=== PATIENT | female | born 1955 | race Caucasian/White ===

== ENCOUNTER 2017-10-28 12:16 | Outpatient (CLI) | payer OTHER | END 2017-10-28 12:17 | disposition home or self-care (01) | LOC: BICMRI 12:16 | PROVIDERS: ATTEND Orthopaedic Surgery | DX: M25.372 Other instability, left ankle (principal); S92.355G Nondisplaced fracture of fifth metatarsal bone, left foot, subsequent encounter for fracture with delayed healing ==

== ENCOUNTER 2018-03-04 10:53 | Outpatient (CLI) | payer OTHER | END 2018-03-04 10:54 | disposition home or self-care (01) | LOC: BICMAMMO 10:53 | PROVIDERS: ATTEND Family Medicine | DX: Z12.31 Encounter for screening mammogram for malignant neoplasm of breast (principal) | CPT/HCPCS: 77063; 77067 ==

== ENCOUNTER 2018-07-11 13:33 | Emergency (ER) | payer OTHER | END 2018-07-11 14:50 | disposition home or self-care (01) | LOC: SCSER 13:33 | DX: M62.838 Other muscle spasm (principal); R10.9 Unspecified abdominal pain; I10 Essential (primary) hypertension; Z79.899 Other long term (current) drug therapy | CPT/HCPCS: 99283 ==

== ENCOUNTER 2018-10-09 08:53 | Outpatient (CLI) | payer OTHER ==
--- NOTE | 2018-10-09 11:05 | MRI ---
MRI RIGHT KNEE WITHOUT CONTRAST: Date: 10/09/18 HISTORY: S83.249A tear medial meniscus knee. Worsening right knee pain. COMPARISON: None. FINDINGS: Medial Meniscus: Intact. Mild degenerative signal within the medial meniscal body without tear. Lateral Meniscus: There is maceration and chronic tearing of the anterior body and anterior horn of the lateral meniscu s with loss of hoop stress and lateral gutter extrusion. ACL, PCL, MCL, and LCL: Intact. Extensor Mechanism: Quadriceps tendon, patella, and patella tendon are intact. Cartilage: Patellofemoral Compartment: There is high grade near complete cartilage loss along the caudad 1/2 of the medial and lateral patellar facets. High grade chondral fissuring of the central trochlea. Medial Compartment: There is 50% thickness cartilage fissures on the posterior weightbearing surface of the medial femoral condyle. Small lateral osteophytes of the medial femoral condyle. Small subcor tical cyst formation of the submeniscal lateral tibial plateau. Lateral Compartment: There are high grade cartilage fissures of the central lateral weightbearing esparza rface of the lateral femoral condyle and lateral tibial plateau. Bones: Large lateral compartment osteophytes. Subcortical stress edema of the submeniscal lateral tibial elida teau at the lateral rim. There are full thickness cartilage fissures. There is subcortical edema of t he suprameniscal lateral femoral condyle. Muscles: There is ganglion pseudocyst formation at the tendinous origins of the medial and lateral gastrocnemi us. Remainder of the musculature is unremarkable. Moderate size joint effusion. Chronic synovitis with some tiny metaplasia. IMPRESSION: 1. 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 2. Mild degenerative signal within the body at the medial meniscus without tear. No significant loss of hoop stress with only Grade II/III chondromalacia. 3. Moderate size joint effusion with mild synovitis and tiny metaplasia. 4. Moderate degenerative disease of the proximal tibiofibular joint. POS: TPC
== END 2018-10-09 08:54 | disposition home or self-care (01) ==
LOC: BICMRI 08:53
PROVIDERS: ATTEND Orthopaedic Surgery
DX: S83.241A Other tear of medial meniscus, current injury, right knee, initial encounter (principal); M23.241 Derangement of anterior horn of lateral meniscus due to old tear or injury, right knee; M23.261 Derangement of other lateral meniscus due to old tear or injury, right knee; M23.331 Other meniscus derangements, other medial meniscus, right knee; M94.261 Chondromalacia, right knee; M25.461 Effusion, right knee; M17.11 Unilateral primary osteoarthritis, right knee; M65.9 Synovitis and tenosynovitis, unspecified

== ENCOUNTER 2019-03-05 10:07 | Outpatient (CLI) | payer OTHER ==
--- NOTE | 2019-03-05 10:56 | MMO ---
Bilateral MAMMO Bilat Screen [facility]STELLA. CLINICAL HISTORY: Patient is 63 years old and is seen for screening. The patient has no family history of breast cancer. The patient has no personal history of cancer. VIEWS: The views performed were: bilateral craniocaudal with tomosynthesis and bilateral mediolateral oblique with tomosynthesis. FILMS COMPARED: The present examination has been compared to prior imaging studies performed at [facility] on 07/08/2000, 07/09/2001, 07/09/2002, 07/09/2003, 07/13/2004, 07/13/2005, 07/15/2006, 08/04/2007, 08/05/2008, 08/08/2009, 08/09/2010, 08/25/2012, 09/07/2013, 11/22/2014, 12/23/2015, 01/03/2017 and 03/04/2018. MAMMOGRAM FINDINGS: There are scattered fibroglandular densities. Finding 1: There are stable intramammary lymph nodes seen in both breasts. Finding 2: There are stable benign appearing densities seen in both breasts. There are no suspicious masses, suspicious calcifications, or new areas of architectural distortion. IMPRESSION: THERE IS NO MAMMOGRAPHIC EVIDENCE OF MALIGNANCY. A ROUTINE FOLLOW-UP MAMMOGRAM IN 1 YEAR IS RECOMMENDED. THE RESULTS OF THIS EXAM WERE SENT TO THE PATIENT. ACR BI-RADS Category 2 - Benign finding MAMMOGRAPHY NOTE: 1. A negative mammogram report should not delay a biopsy if a dominant of clinically suspicious mass is present. 2. Approximately 10% to 15% of breast cancers are not detected by mammography. 3. Adenosis and dense breasts may obscure an underlying neoplasm.
--- NOTE | 2019-03-05 11:33 | BD ---
EXAM: DEXA bone density examination HISTORY: 63-year-old postmenopausal female for screening COMPARISON: None FINDINGS: L1--bone mineral density 0.771 g/sq cm; T score -2.0 L2--bone mineral density 0.826 g/sq cm; T score -1.8 L3--bone mineral density 0.785 g/sq cm; T score -2.7 L4--bone mineral density 0.687 g/sq cm; T score -3.4 Total L1-L4--bone mineral density 0.763 g/sq cm; T score -2.6 Right femoral neck--bone mineral density0.495; T score -3.2 Total proximal right femur--bone mineral density 0.496; T score -3.7 IMPRESSION: Osteoporosis.This patient has approximately an 8 times increased risk of fracture when co mpared with young patients with normal bone mineral density.
== END 2019-03-05 10:08 | disposition home or self-care (01) ==
LOC: BICMAMMO 10:07
PROVIDERS: ATTEND Family Medicine
DX: Z12.31 Encounter for screening mammogram for malignant neoplasm of breast (principal); Z13.820 Encounter for screening for osteoporosis; M81.0 Age-related osteoporosis without current pathological fracture
CPT/HCPCS: 77063; 77067; 77080

== ENCOUNTER 2019-07-08 07:50 | Observation (INO) | payer MEDICARE, OTHER ==
[2019-07-08 09:11] LABS: #Eosinphils 0.1 thou/uL (0.0-0.7); #Monocytes 0.7 thou/uL (0.11-0.59); #Neutrophils 13.9 thou/uL (1.40-6.50); %Basophils 0.2 % (0.0-1.0); %Eosinophils 0.5 % (0.0-10.0); %Lymphocytes 6.6 % (21.0-51.0); %Monocytes 4.1 % (0.0-10.0); %Neutrophils 88.6 % (42.0-75.0); Hemoglobin 11.9 g/dL (12.0-16.0); Mean Corpuscular HGB CONC 33.9 g/dL (32.0-36.0); Mean Corpuscular Hemoglobin 30.8 pg (27.0-31.0); Mean Corpuscular Volume 90.8 fL (78.0-98.0); Mean Platelet Volume 6.8 fL (7.4-10.4); Platelet Count 363 thou/uL (130-400); RBC Distribution Width 13.6 % (11.5-14.5); Red Blood Cell (RBC) Count 3.85 mill/uL (4.20-5.40); White Blood Cell (WBC) Count 15.7 thou/uL (4.8-10.8)
[2019-07-08 09:22] LABS: ALT (SGPT) 14 U/L (8-55); AST (SGOT) 12 U/L (5-34); Albumin 2.5 g/dL (3.4-4.8); Alkaline Phosphatase 77 U/L (40-150); Anion Gap 11 mmol/L (10-20); BUN (Urea Nitrogen) 29 mg/dL (9.8-20.1); Bilirubin, Total 0.3 mg/dL (0.2-1.2); Calc. Creatinine Clearance 0 mL/min (70-130); Calcium 8.2 mg/dL (7.8-10.44); Carbon Dioxide 24 mmol/L (23-31); Chloride 106 mmol/L (98-107); Estimated GFR-MDRD 42; Globulin 2.5 g/dL (2.4-3.5); Glucose 109 mg/dL (80-115); Potassium 4.1 mmol/L (3.5-5.1); Sodium 137 mmol/L (136-145)
[2019-07-08] MEDS ORDERED: hydrALAZINE 20 MG/ML VIAL ONE (10:14)
[2019-07-08] MEDS ORDERED: Furosemide 100 MG/10 ML VIAL ONE (10:14)
[2019-07-08] MEDS ORDERED: Albumin 25% 25 GM/100 ML BOT IVPB SCH (10:30)
[2019-07-08] MEDS ORDERED: Loperamide HCl 2 MG CAP PO PRN (13:43)
[2019-07-08] MEDS ORDERED: Metolazone 5 MG TAB PO SCH ×2 (13:45→17:15)
--- NOTE | 2019-07-08 16:32 | ULT ---
RENAL ULTRASOUND 07/08/19 PROVIDED CLINICAL HISTORY: Anasarca. FINDINGS: The right kidney measures about 10.1 x 4.3 x 5.4 cm and demonstrates no evidence for hydronephrosis o r mass. Left kidney measures about 10.7 x 5.8 x 4.6 cm and demonstrates no evidence for hydronephrosis or mas s. There is shadowing emanating from the anterior aspect of the urinary bladder, the etiology for which is not certain. This could reflect bowel overlying the bladder versus gas within the bladder wall. IMPRESSION: 1. No evidence for hydronephrosis. 2. Shadowing emanating from the anterior wall region of the urinary bladder which may be on the basis of bladder wall gas or bowel anterior to the bladder. Consider CT if indicated. POS: TPC
--- NOTE | 2019-07-08 16:37 | HP ---
CHIEF COMPLAINT: Massive peripheral edema of her both lower extremities up to the waist. HISTORY OF PRESENT ILLNESS: The patient is a 63-year-old female with past medical history of focal segmental glomerulosclerosis, which was managed by her aircraft engine mechanic supervisor, Dr. Chavarria, and periodic peripheral edema, but at this time, this treatment did not really work and her oral Lasix in high dose did not improve her peripheral edema. This was gradually getting worse to the point that she gained more than 10 pounds in several weeks and she was advised by Dr. Chavarria to come to the emergency room and get admitted for IV Lasix and albumins. Her blood pressure in the emergency room was up to 200 systolic. She was given hydralazine and her blood pressure is significantly improved, but her pulse is up to 110s. At the time of my evaluation, the patient got admitted to the hospital. She denies any chest pain, shortness of breath, any other symptoms. No fever. No chills. PAST MEDICAL HISTORY: Positive for; 1. Hypertension. 2. FSGS. PAST SURGICAL HISTORY: 1. Cataract surgery. 2. Left hip replacement. 3. Left ankle tendon surgery. 4. C5-C6 fusion. SOCIAL HISTORY: She denies any alcohol intake, cigarette smoking, or illicit drug use. ALLERGIES: NONE. CURRENT MEDICATIONS: 1. Lasix 40 mg once a day. 2. Potassium chloride 20 mEq once a day. 3. Losartan 100 mg once a day. 4. Prednisone 30 mg once a day. FAMILY HISTORY: Mother had glioblastoma and she at the age of 76. Father had heart disease and parkinsonism. PRIMARY CARE PHYSICIAN: Dr. Brie Phillips. SURROGATE DECISION MAKER: The patient's , Jonh. REVIEW OF SYSTEMS: Fourteen systems were reviewed and all symptoms are negative except for those which are mentioned in HPI. PHYSICAL EXAMINATION: VITAL SIGNS: Blood pressure is 123/70, pulse is 108, temperature is 97.7, respirations 16, O2 saturation is 97% on room air. HEENT: Head is atraumatic, normocephalic. Eyes are PERRLA. Sclerae are nonicteric. Oral mucosa is moist. NECK: Supple. Obese. LUNGS: Clear. HEART: S1, S2, somewhat tachycardic. No S3. No S4. Regular. No any murmur. ABDOMEN: Soft, nontender, nondistended. Bowel sounds are present. No organomegaly. Obese. EXTREMITIES: 3 to 4+ peripheral edema, mostly pronounced in the lowest parts of both lower extremities. NEUROLOGIC: She is alert and oriented x4. There are no any motor deficits. LABORATORY DATA: Labs showed white count of 15.7, hemoglobin 11.9, hematocrit 35.0, platelet count is 363,000. Normal electrolytes. BUN 29, creatinine 1.27, total protein 5.0, albumin 2.5, globulin 2.5. Normal liver function tests. IMPRESSION: 1. Anasarca, unclear etiology at this point, most likely secondary to severe proteinuria from nephrotic syndrome. 2. Uncontrolled hypertension to the point that she was emergently treated with IV hydralazine in the emergency room. 3. Focal segmental glomerulosclerosis. 4. Renal failure, acute on chronic. PLAN: Admission for observation to the medical floor. Condition is fair. Activity is bedrest and bathroom privileges. IV Hep-Lock. DVT prophylaxis with Lovenox 30 mg subcutaneously every 24 hours. Nephrology consult with Dr. Chavarria. Lasix 80 mg IV push every 12 hours, metolazone 5 mg once a day every day. Continue prednisone 30 mg once a day. Ultrasound of the kidneys, sedimentation rate, CRP, and D-dimers. The case was discussed with Dr. Chavarria. Job ID: [id number]
[2019-07-08] MEDS: Albumin 25% 25 GM/100 ML BOT IVPB SCH ×2 (18:18→23:45)
[2019-07-08 19:17] LABS: Bilirubin Negative (Negative); Blood, Urine 1+ (Negative); Clarity Turbid (Clear); Glucose, Urine (Dipstick) 150 mg/dL (Negative); Leukocyte 25 Leu/uL (Negative); Nitrite Negative (Negative); Protein, Urine (Dipstick) 600 mg/dL (Neg-Trace); RBC/HPF 0-3 HPF (0-3); Squamous Epithelial 0-3 HPF (0-3); Urobilinogen Normal mg/dL (Less than 2); WBC/HPF 21-50 HPF (0-3)
[2019-07-08 19:25] LABS: Bacteria/HPF 4+ HPF (None Seen)
[2019-07-08 19:39] LABS: Creatinine, Urine 89.63 mg/dL (47-110)
[2019-07-08] MEDS ORDERED: Furosemide 40 MG/4 ML VIAL SLOW IVP SCH (21:00)
--- NOTE | 2019-07-08 22:10 | CON ---
DATE OF CONSULTATION: HISTORY OF PRESENT ILLNESS: Ms. Jacobs is a 63-year-old white female with known history of chronic renal failure secondary to biopsy-proven FSGS, nephrotic syndrome and admitted for worsening leg edema. She has been tried on Lasix at 80 mg once a day, but has not responded to diuretics. Due to the worsening leg edema and generalized fullness, she was admitted for further management. We are now being consulted for her chronic renal failure/nephrotic syndrome. REVIEW OF SYSTEMS: Positive for chronic leg edema. Positive for eye puffiness. Denies any chest pain or shortness of breath. Appetite is fair. Energy level is fair. No headache. No diplopia. No sore throat. No productive cough. No gross hematuria. No hematochezia. No melena. No hematemesis. No syncopal episode. No productive cough. No fever or chills. MEDICATIONS: Currently on 1. Albumin 25 g IV q.6 hours. 2. Lovenox 30 mg subcu daily. 3. Furosemide 80 mg IV q.12. 4. Loperamide p.r.n. 5. Metolazone 5 mg p.o. q.a.m. 6. Prednisone 30 mg q.a.m. PAST MEDICAL HISTORY: 1. History of nephrotic syndrome secondary to biopsy-proven FSGS. 2. Chronic renal failure from FSGS history. 3. Osteoporosis. 4. Hyperlipidemia. 5. History of cervical myelopathy with decreased motor strength of lower extremities. 6. She has retinitis pigmentosa. PAST SURGICAL HISTORY: Status post renal biopsy, status post reconstruction of the toe, status post colonoscopy, status post cataract surgery, both eyes, status post cervical neck surgery, status post left hip surgery. FAMILY HISTORY: No family history of ESRD. SOCIAL HISTORY: The patient is , 2 children. Lives in [place]. Retired high school nurse. No drug abuse. No alcohol. No blood transfusion. Active lifestyle. Schooling-nursing school. ALLERGIES: NONE. TRAUMA: Status post left hip fracture. IMMUNIZATION: Up-to-date. HOSPITALIZATIONS: Please see past medical history. PHYSICAL EXAMINATION: VITAL SIGNS: Blood pressure is 123/70, heart rate 108, respiratory rate 16, temperature 97.7, pulse ox 97%. GENERAL: Awake, alert, comfortable, not in overt distress. SKIN: Adequate turgor. HEENT: Has pinkish conjunctivae. Anicteric sclerae. NECK: No neck mass. No carotid bruits. No JVD. CHEST: No deformities. LUNGS: Clear breath sounds. No wheezing. No crackles. HEART: Normal sinus rhythm. No murmur. No gallops. No rubs. ABDOMEN: Globular, soft, nontender. No masses. EXTREMITIES: Positive for +3 edema. NEUROLOGICAL: Moving all extremities. No tremors. No asterixis. No ataxia. LABORATORY DATA: Laboratories of July 08, 2019; white count 15.7, hemoglobin 11.9. Sodium 137, potassium 4.1, chloride 106, carbon dioxide 24, BUN 29, creatinine 1.27, glucose 109, AST 12, ALT 14, calcium 8.2, albumin 2.5. C-reactive protein is 1.95. Renal ultrasound is pending. ASSESSMENT AND PLAN: 1. Nephrotic syndrome secondary to biopsy-proven focal segmental glomerulosclerosis-the patient has not been responding with her standard diuretics. Her edema has worsen. She tells me she is gaining weight of about 10 pounds. The plan is to start IV Lasix 80 mg IV q.12. Salt-poor albumin 25 g IV q.6 will be given. We will attempt to do this for at least 3 days. I had a long discussion with the patient and she has agreed to consider starting herself on tacrolimus. We will again re-discuss this tomorrow. If she agrees, we will initiate tacrolimus for her focal segmental glomerulosclerosis. I did explain here that the tacrolimus does not guarantee that this will be efficacious for her. But I did encourage her to at least try this. 2. Mildly impaired GFR-secondary to her diuretics and losartan. She is currently off losartan. I will hold off any ARB or JAYME inhibitor while we are maxing out our diuretics with this patient. 3. Overall prognosis remains guarded. Job ID: [id number]
[2019-07-09] MEDS: Acetaminophen 500 MG TAB PO PRN ×2 (04:31→23:36)
[2019-07-09 05:24] LABS: #Eosinphils 0.1 thou/uL (0.0-0.7); #Lymphocytes 1.9 thou/uL (1.20-3.40); #Monocytes 0.5 thou/uL (0.11-0.59); #Neutrophils 6.8 thou/uL (1.40-6.50); %Basophils 0.4 % (0.0-1.0); %Eosinophils 0.8 % (0.0-10.0); %Lymphocytes 20.4 % (21.0-51.0); %Monocytes 5.7 % (0.0-10.0); %Neutrophils 72.7 % (42.0-75.0); Hemoglobin 9.5 g/dL (12.0-16.0); Mean Corpuscular HGB CONC 34.8 g/dL (32.0-36.0); Mean Corpuscular Hemoglobin 31.5 pg (27.0-31.0); Mean Corpuscular Volume 90.5 fL (78.0-98.0); Mean Platelet Volume 6.8 fL (7.4-10.4); Platelet Count 312 thou/uL (130-400); RBC Distribution Width 13.4 % (11.5-14.5); Red Blood Cell (RBC) Count 3.03 mill/uL (4.20-5.40); White Blood Cell (WBC) Count 9.4 thou/uL (4.8-10.8)
[2019-07-09 05:33] LABS: Hemoglobin 9.5 g/dL (12.0-16.0); Hypochromia SLIGHT = 6-15 cells (100X) (0-5/hpf); Lymphocytes 15 % (21-51); MDiff Complete? YES; Mean Corpuscular HGB CONC 34.1 g/dL (32.0-36.0); Mean Corpuscular Volume 90.9 fL (78.0-98.0); Mean Platelet Volume 6.9 fL (7.4-10.4); Monocytes 3 % (0-10); Neutrophil 82 % (42-75); Platelet Count 317 thou/uL (130-400); Platelet Morphology Comment Appears Adequate; RBC Distribution Width 13.5 % (11.5-14.5); Red Blood Cell (RBC) Count 3.07 mill/uL (4.20-5.40); White Blood Cell (WBC) Count 9.3 thou/uL (4.8-10.8)
[2019-07-09 05:56] LABS: ALT (SGPT) Less than 7 U/L (8-55); AST (SGOT) 11 U/L (5-34); Albumin 3.2 g/dL (3.4-4.8); Alkaline Phosphatase 54 U/L (40-150); Anion Gap 12 mmol/L (10-20); BUN (Urea Nitrogen) 34 mg/dL (9.8-20.1); Bilirubin, Total 0.6 mg/dL (0.2-1.2); Calc. Creatinine Clearance 46 mL/min (70-130); Calcium 8.7 mg/dL (7.8-10.44); Carbon Dioxide 27 mmol/L (23-31); Chloride 104 mmol/L (98-107); Estimated GFR-MDRD 41; Globulin 1.7 g/dL (2.4-3.5); Glucose 103 mg/dL (80-115); Potassium 3.6 mmol/L (3.5-5.1); Protein, Total 4.9 g/dL (6.0-8.3); Sodium 139 mmol/L (136-145)
[2019-07-09] MEDS: predniSONE 20 MG TAB PO SCH (08:04)
[2019-07-09] MEDS: Enoxaparin Sodium 30 MG/0.3 ML SYRINGE SC SCH (08:06)
[2019-07-09] MEDS: Metolazone 5 MG TAB PO SCH (08:06)
[2019-07-09] MEDS ORDERED: Albumin 25% 25 GM/100 ML BOT IVPB ONE (08:34)
[2019-07-09] MEDS ORDERED: Furosemide 100 MG/10 ML VIAL SLOW IVP SCH (09:00)
--- NOTE | 2019-07-09 09:38 | PRG ---
DATE OF SERVICE: 07/09/2019 SERVICE: Renal Medicine. SUBJECTIVE: Ms. Jacobs is a 63-year-old white female with known history of chronic renal failure secondary to biopsy-proven FSGS. She was admitted for generalized edema/leg edema and was refractory to the p.o. Lasix. She has been started with IV Lasix and metolazone as well as albumin infusion. She has been significantly diuresed last night. Our plan is to continue current management. OBJECTIVE: VITAL SIGNS: Blood pressure 151/72, heart rate 78, respiratory rate 18, temperature 98.1, pulse ox 97%. GENERAL: Noted to be awake, alert, comfortable, not in overt distress. SKIN: Adequate turgor. HEENT: She has pinkish conjunctivae. Anicteric sclerae. NECK: No neck mass. No carotid bruits. No JVD. CHEST: No deformities. LUNGS: Clear breath sounds. HEART: Normal sinus rhythm. No murmur. No gallops. No rubs. ABDOMEN: Globular, soft, nontender. No masses. EXTREMITIES: Positive for edema. MEDICATIONS: Medications of July 09, 2019, reviewed. LABORATORY DATA: Of July 09, 2019; white count 9.4, hemoglobin 9.5. Sodium 139, potassium 3.6, chloride 104, carbon dioxide 27, BUN 34, creatinine 1.31, glucose 103, calcium 8.7, AST 11, ALT less than 7, albumin 3.2. ASSESSMENT AND PLAN: 1. Nephrotic syndrome-the patient is diuresing well last night. We will continue current IV diuretics. Continue albumin infusion. 2. Acute kidney injury-mildly impaired GFR. Most likely from the diuretics. We will continue to observe. The patient is still thinking about the tacrolimus initiation. We will re-discuss this as an outpatient. Overall, agree with current management. Job ID: [id number]
[2019-07-09] MEDS: Albumin 25% 25 GM/100 ML BOT IVPB SCH ×3 (12:22→23:37)
--- NOTE | 2019-07-09 13:22 | PRG ---
DATE OF SERVICE: 07/09/2019 SUBJECTIVE: The patient is seen and examined at bedside. She started urinating overnight. She would like to go home. OBJECTIVE: VITAL SIGNS: Blood pressure is 162/82, pulse is 73, temperature is 97.7, respiratory rate is 17, O2 saturation is 98% on room air. HEENT: Head is atraumatic and normocephalic. Eyes are PERRLA. Sclerae are nonicteric. Oral mucosa is moist. NECK: Supple. LUNGS: Clear. HEART: S1 and S2, normal. ABDOMEN: Soft, nontender. Bowel sounds are present EXTREMITIES: 2+ peripheral edema on both lower extremities. NEUROLOGICAL: She is alert and oriented x4. There are no any motor or sensory deficits. LABORATORY DATA: Labs showed white count of 9.4, hemoglobin 9.5, hematocrit 27.4, platelet count is 312. Normal electrolytes. BUN of 34, creatinine 1.31, total protein 4.9, albumin 3.2, globulin 1.7. Urinalysis showed urine turbid, 600 of protein, 150 of glucose, 1+ blood, 21 to 50 wbc's on the scope, 4+ bacteria, 7 to 10 hyaline casts, granular casts 0 to 3, and urine random protein is 1548, leukocyte esterase negative, nitrites negative. IMPRESSION: 1. Anasarca. The patient did not respond to Lasix, but after metolazone was added, her urine output increased significantly. We will keep her on Lasix 80 mg IV push every 12 hours along with metolazone. Also continue albumins every 6 hours. 2. Uncontrolled hypertension, improved, but still significant problem. We will continue current regimen since she just started diuresing last night. 3. Focal segmental glomerulosclerosis. 4. Renal failure, acute on chronic. PLAN: As mentioned above. Continuation of her Lasix and metolazone. Her CRP came back somewhat elevated and sedimentation rate was 35. D-dimers are elevated too. We will discuss the case with Dr. Chavarria. Ultrasound was done, and it showed possible shadow from the anterior wall regions of the urinary bladder, which could be the bowel, but clinically, she is doing good. She does not have any complaints in her pelvis. She should be able to go home in the next 24 hours. We will continue DVT prophylaxis. We will continue her losartan and prednisone 30 mg once a day. Job ID: [id number]
[2019-07-09] MEDS: Furosemide 100 MG/10 ML VIAL SLOW IVP SCH (17:00)
[2019-07-09] MEDS ORDERED: Losartan 25 MG TAB PO SCH (21:00)
[2019-07-10 06:04] LABS: ALT (SGPT) 7 U/L (8-55); AST (SGOT) 8 U/L (5-34); Albumin 3.4 g/dL (3.4-4.8); Alkaline Phosphatase 42 U/L (40-150); Anion Gap 10 mmol/L (10-20); BUN (Urea Nitrogen) 34 mg/dL (9.8-20.1); Bilirubin, Total 0.6 mg/dL (0.2-1.2); Calc. Creatinine Clearance 47 mL/min (70-130); Calcium 8.2 mg/dL (7.8-10.44); Carbon Dioxide 31 mmol/L (23-31); Chloride 101 mmol/L (98-107); Estimated GFR-MDRD 41; Globulin 1.3 g/dL (2.4-3.5); Glucose 105 mg/dL (80-115); Potassium 3.9 mmol/L (3.5-5.1); Protein, Total 4.7 g/dL (6.0-8.3); Sodium 138 mmol/L (136-145)
[2019-07-10 06:09] LABS: Band 3 % (5-11); Eosinophils 1 % (0-10); Hemoglobin 8.2 g/dL (12.0-16.0); Lymphocytes 19 % (21-51); MDiff Complete? YES; Mean Corpuscular HGB CONC 34.2 g/dL (32.0-36.0); Mean Corpuscular Hemoglobin 30.4 pg (27.0-31.0); Mean Corpuscular Volume 88.9 fL (78.0-98.0); Mean Platelet Volume 7.2 fL (7.4-10.4); Monocytes 3 % (0-10); Neutrophil 74 % (42-75); Platelet Count 230 thou/uL (130-400); RBC Distribution Width 13.2 % (11.5-14.5); Red Blood Cell (RBC) Count 2.69 mill/uL (4.20-5.40); White Blood Cell (WBC) Count 6.8 thou/uL (4.8-10.8)
[2019-07-10] MEDS: Albumin 25% 25 GM/100 ML BOT IVPB SCH (06:29)
[2019-07-10] MEDS: Furosemide 100 MG/10 ML VIAL SLOW IVP SCH (06:40)
[2019-07-10 08:04] VITALS: BMI 23.2
[2019-07-10] MEDS: Metolazone 5 MG TAB PO SCH (09:35)
[2019-07-10] MEDS: predniSONE 20 MG TAB PO SCH (09:35)
[2019-07-10] MEDS: Enoxaparin Sodium 30 MG/0.3 ML SYRINGE SC SCH (09:38)
[2019-07-10 11:15] VITALS: TEMP 98.2
--- NOTE | 2019-07-10 11:15 | PRG ---
DATE OF SERVICE: 07/10/2019 SUBJECTIVE: Ms. Jacobs is a 63-year-old white female with known history of chronic renal failure, nephrotic syndrome, secondary to biopsy-proven FSGS. She was admitted for IV Lasix and IV albumin. She responded very well with the said medications. She was also started on metolazone. She has been diuresing quite well. Her last 24-hour urine output was noted at 3.1 L, and in the last 12 hours, she was noted to have passed out 1.6 L. The patient is requesting to go home. She was also noted to be anemic. The patient is scheduled for outpatient colonoscopy. No new complaints. No chest pain or shortness of breath. OBJECTIVE: VITAL SIGNS: Blood pressure 162/83, heart rate 73, respiratory rate 18, temperature 97.8, pulse ox 99%. GENERAL: Noted to be awake, alert, comfortable, not in distress. SKIN: Adequate turgor. HEENT: She has slightly pale conjunctivae. Anicteric sclerae. NECK: No neck mass. No carotid bruits. No JVD. CHEST: No deformities. LUNGS: Clear breath sounds. No wheezing. No crackles. HEART: Normal sinus rhythm. No murmur. No gallops. No rubs. ABDOMEN: Globular, soft, nontender. No masses. EXTREMITIES: Trace edema. MEDICATIONS: Of July 10, 2019, were reviewed. LABORATORY DATA: Laboratories of July 10, 2019: White count 6.8, hemoglobin 8.2. Sodium 138, potassium 3.9, chloride 101, carbon dioxide 31, BUN 34, creatinine 1.3, calcium 8.2, albumin 3.4. ASSESSMENT AND PLAN: 1. Anemia - the patient is scheduled for outpatient colonoscopy. I encouraged her to follow up with her GI doctor. 2. Nephrotic syndrome/anasarca - much improved. Diuresed well with the current IV diuretics and albumin infusion. The plan on discharge is to maintain on Lasix 80 mg tablet once a day together with metolazone 5 mg tablet every other day. She will continue her current prednisone regimen. 3. Chronic renal failure from focal segmental glomerulosclerosis - again, I had a discussion with the patient to consider starting on some tacrolimus. Again, she would like to think about it. I will be seeing this patient on the week of July. Job ID: [id number]
[2019-07-10 12:19] VITALS: BP 171/80
--- NOTE | 2019-07-12 02:04 | DIS ---
DATE OF ADMISSION: 07/08/2019 DATE OF DISCHARGE: 07/10/2019 DISCHARGE DIAGNOSES: 1. Anasarca due to kidney disease. 2. Focal segmental glomerulosclerosis. 3. Hypertension. 4. Acute on chronic renal failure. 5. Anemia. HISTORY OF PRESENT ILLNESS: This patient is a 63-year-old female, who had recently been diagnosed with FSGS by Dr. Chavarria. The patient had been developing some intermittent edema and requiring Lasix. However, in this occasion, the patient's Lasix was unsuccessful and she continued to develop severe peripheral edema up her legs to the level of the waist and she was advised to come to the emergency department. There, the patient was hypertensive, mildly tachycardic, and had a significant peripheral edema. She was subsequently given IV hydralazine and admitted to the hospital. HOSPITAL COURSE: The patient had a renal ultrasound which showed shadowing emanating from the anterior wall of the urinary bladder which could be bladder wall gas or bowel anterior to the bladder; otherwise, no significant findings. She was seen in consultation by Dr. Chavarria and she was started on IV diuretics and albumin. With that, her edema improved significantly; however, her hemoglobin drifted down from 11.9 to 8.2. It was felt this may have been due to the albumin causing some retention of additional fluid within the vasculature. The patient's blood pressure remained on the higher side and it felt that she was not acutely losing significant amounts of blood. She was maintained on prednisone. Dr. Chavarria spoke to her again about starting tacrolimus, however, the patient would prefer to continue to think about that before starting it. Ultimately, the patient's repeat hemoglobin came back at 10.0 and she was felt to be stable for discharge to home. Discussed with Dr. Chavarria, he recommended to the patient that she have outpatient colonoscopy and was comfortable with her discharge otherwise with higher doses of diuretics. PHYSICAL EXAMINATION: VITAL SIGNS: On the day of discharge, temperature is 98.2, pulse ranged from 68 to 104, BP was 171/80. GENERAL APPEARANCE: Age-appropriate female, in no distress. GENERAL: She was awake, alert, oriented, pleasant, and cooperative. HEART: Regular rate and rhythm. LUNGS: Clear bilaterally. ABDOMEN: Soft, nontender. EXTREMITIES: Still had 2+ edema from the midcalf down with some wrinkling and crenation of the skin consistent with resolving edema. DISPOSITION: The patient is discharged home in stable condition. ACTIVITY: As tolerated. DIET: She will stay on a renal diet. DISCHARGE MEDICATIONS: She will be on Lasix 80 mg daily and metolazone 5 mg every other day. She will continue with losartan 100 mg at bedtime, calcium with vitamin D one daily. Prednisone 30 mg p.o. daily. FOLLOWUP: She will follow up with Dr. Brie Phillips to have her hemoglobin rechecked and Dr. Chavarria in 3 days. He can recheck her counts there as well, discuss further treatment for the FSGS and as mentioned, Dr. Chavarria did recommend the patient she have outpatient colonoscopy. She can return to the hospital should she have any problems prior to the time of her followup visits. Job ID: [id number]
== END 2019-07-10 13:15 | disposition home or self-care (01) ==
LOC: ERS 07:50 → T4-A 12:19
PROVIDERS: ADMIT Internal Medicine; ATTEND Internal Medicine
DX: I12.9 Hypertensive chronic kidney disease with stage 1 through stage 4 chronic kidney disease, or unspecified chronic kidney disease (principal); N18.9 Chronic kidney disease, unspecified; N17.9 Acute kidney failure, unspecified; D63.1 Anemia in chronic kidney disease; M81.0 Age-related osteoporosis without current pathological fracture; Z79.899 Other long term (current) drug therapy
CPT/HCPCS: 76770; 80053 ×3; 81001; 82570; 84156; 85007 ×2; 85014; 85018; 85025 ×2; 85027 ×2; 85379; 85652; 86140; 96365; 96366 ×3; 96372 ×2; 96375; 96376 ×2; 99284; G0378 ×4; P9047 ×3; 36415; J0360; J1650; J1940; J7512

== ENCOUNTER 2019-09-13 10:00 | Emergency (ER) | payer MEDICARE | END 2019-09-13 10:52 | disposition home or self-care (01) | LOC: SCSER 10:00 | DX: I12.9 Hypertensive chronic kidney disease with stage 1 through stage 4 chronic kidney disease, or unspecified chronic kidney disease (principal); N18.9 Chronic kidney disease, unspecified; Z79.899 Other long term (current) drug therapy | CPT/HCPCS: 99283 ==

== ENCOUNTER 2019-11-30 17:02 | Inpatient (IN) | payer MEDICARE ==
[2019-11-30 18:41] LABS: #Eosinphils 0.1 thou/uL (0.0-0.7); #Lymphocytes 1.9 thou/uL (1.20-3.40); #Monocytes 0.6 thou/uL (0.11-0.59); #Neutrophils 6.2 thou/uL (1.40-6.50); %Basophils 0.5 % (0.0-1.0); %Eosinophils 1.7 % (0.0-10.0); %Monocytes 6.5 % (0.0-10.0); %Neutrophils 70.2 % (42.0-75.0); Hemoglobin 11.4 g/dL (12.0-16.0); Mean Corpuscular HGB CONC 33.1 g/dL (32.0-36.0); Mean Corpuscular Volume 90.4 fL (78.0-98.0); Mean Platelet Volume 7.6 fL (7.4-10.4); Platelet Count 444 thou/uL (130-400); RBC Distribution Width 13.1 % (11.5-14.5); Red Blood Cell (RBC) Count 3.82 mill/uL (4.20-5.40); White Blood Cell (WBC) Count 8.9 thou/uL (4.8-10.8)
[2019-11-30] MEDS ORDERED: Albumin 25% 25 GM/100 ML BOT IVPB SCH (19:00)
[2019-11-30 19:03] LABS: ALT (SGPT) 10 U/L (8-55); AST (SGOT) 13 U/L (5-34); Albumin 2.2 g/dL (3.4-4.8); Alkaline Phosphatase 95 U/L (40-110); Anion Gap 17 mmol/L (10-20); BUN (Urea Nitrogen) 45 mg/dL (9.8-20.1); Bilirubin, Total 0.2 mg/dL (0.2-1.2); Calc. Creatinine Clearance 0 mL/min (70-130); Calcium 7.8 mg/dL (7.8-10.44); Carbon Dioxide 20 mmol/L (23-31); Chloride 105 mmol/L (98-107); Estimated GFR-MDRD 7; Globulin 2.9 g/dL (2.4-3.5); Glucose 109 mg/dL (80-115); Lipase 11 U/L (8-78); Potassium 4.5 mmol/L (3.5-5.1); Protein, Total 5.1 g/dL (6.0-8.3); Sodium 137 mmol/L (136-145)
[2019-11-30] MEDS ORDERED: hydrALAZINE 20 MG/ML VIAL ONE (19:13)
[2019-11-30] MEDS ORDERED: cloNIDine 0.1 MG TAB ONE (19:13)
--- NOTE | 2019-11-30 19:44 | RAD ---
PORTABLE AP CHEST X-RAY: HISTORY: Dyspnea. Abdominal pain. COMPARISON: Chest x-ray on 02/23/[address] abdomen on 10/22/2019. FINDINGS: There is a tiny right pleural effusion and associated atelectasis. There is a small left pleural effu alvin and atelectasis present. There were moderate sized bilateral pleural effusions seen on prior CT exam. The cardiac silhouette and pulmonary vasculature are within normal limits. There is no other interval change. Post surgical changes, lower cervical spine, are partially imaged. IMPRESSION: Tiny right and small left pleural effusions with associated bibasilar atelectasis. Superimposed pneum onia at the medial left lung base cannot be entirely excluded. Follow-up chest x-ray is suggested. POS: BIANCA
[2019-11-30] MEDS ORDERED: Acetaminophen 325 MG TAB PO PRN (21:48)
[2019-11-30 22:40] LABS: #Basophils 0.1 thou/uL (0.0-0.2); #Eosinphils 0.1 thou/uL (0.0-0.7); #Monocytes 0.5 thou/uL (0.11-0.59); #Neutrophils 5.1 thou/uL (1.40-6.50); %Basophils 0.7 % (0.0-1.0); %Eosinophils 1.5 % (0.0-10.0); %Lymphocytes 25.5 % (21.0-51.0); %Monocytes 5.9 % (0.0-10.0); %Neutrophils 66.4 % (42.0-75.0); Hemoglobin 9.5 g/dL (12.0-16.0); Mean Corpuscular HGB CONC 34.3 g/dL (32.0-36.0); Mean Corpuscular Hemoglobin 31.4 pg (27.0-31.0); Mean Corpuscular Volume 91.5 fL (78.0-98.0); Mean Platelet Volume 7.1 fL (7.4-10.4); Platelet Count 343 thou/uL (130-400); RBC Distribution Width 12.8 % (11.5-14.5); Red Blood Cell (RBC) Count 3.04 mill/uL (4.20-5.40); White Blood Cell (WBC) Count 7.7 thou/uL (4.8-10.8)
--- NOTE | 2019-11-30 22:55 | HP ---
PRIMARY CARE PHYSICIAN: Brie Phillips MD. MAINTENANCE SHOP LABORER: Yemi Castellon MD CHIEF COMPLAINT: Weakness, fatigue, nausea, and swelling times weeks. HISTORY OF PRESENT ILLNESS: This is a 64-year-old female, past medical history of CKD 3 secondary to focal segmental glomerulosclerosis, hypertension, recent hospitalization one month ago for ALON on CKD, who was referred to ED by replanting machine operator's office for several week history of diffuse anasarca associated with nausea, fatigue, anergia, and recent abnormal outpatient labs prompting further evaluation. The patient reports several weeks ago been taken off prednisone as well as tacrolimus, which was suspected to be contributing to her nausea. However, she continued to have nausea and diminished functional status. She saw her primary care physician one week ago and was prescribed oral Phenergan, which did not relieve her symptoms. At that time, lab work revealed GFR 15 and creatinine of 3.16. She was taken off her losartan at that time and for the past three days, has been bed- bound and immobile. She has been compliant with home medications including Lasix 20 mg once daily. Her symptoms progressed and her replanting machine operator referred her to the ER. In the emergency room lab work revealed a BUN and creatinine of 45/6.17 with serum bicarb 20 and potassium of 4.5. Initial blood pressure was 223/95. The patient was administered 25 g IV albumin, 10 mg IV hydralazine, oral clonidine and admitted for further inpatient evaluation. At bedside, the patient is accompanied by spouse. She corroborates history and offers no other acute complaints. She denies any fevers, chills, emesis, diarrhea, angina, lower extremity pain, or pleuritic chest pain symptoms. She feels dehydrated. She feels that her breast and body are swollen and engorged. PAST MEDICAL HISTORY: Chronic kidney disease stage 3 secondary to focal segmental glomerulosclerosis, hypertension. PAST SURGICAL HISTORY: C5-C6 neck surgery, left hip surgery, left foot tendon surgery, and cataract surgery. SOCIAL HISTORY: The patient is , lives at home with her spouse. She denies tobacco, alcohol, or illicit drug use. She uses a cane to ambulate and notes recent fall several weeks ago. ALLERGIES: NONE DOCUMENTED. REVIEW OF SYSTEMS: Pertinent positives as per HPI. Remainder of review of systems negative. MEDICATIONS: Reviewed as per admission medication reconciliation. FAMILY HISTORY: Father had OH in his 60s. Brother had two MIs in his early 60s. Mother had a brain tumor. PHYSICAL EXAMINATION: VITAL SIGNS: T-max afebrile, 98.0; pulse 78; blood pressure initially 223/95 with most recent blood pressure 130s to 160s over 80s to 90s. Oxygen saturation 97% on room air, respirations 16 to 18. GENERAL APPEARANCE: This is an elderly female, who is awake, alert, oriented, coherent, lucid, not as apparent, is not in any obvious distress. HEENT: Normocephalic and atraumatic. No facial asymmetry. Mucous membranes are dry. Pupils equally round. No significant periorbital edema noted. NECK: Supple. CARDIOVASCULAR SYSTEM: S1 and S2. Regular rate and rhythm. No harsh murmurs. No reproducible chest wall tenderness to palpation. LUNGS: Bilateral equal air entry on posterior auscultation. Nonlabored respirations. No wheezing or rales. ABDOMEN: Soft, nondistended, nontender to palpation. EXTREMITIES: There is peripheral pitting edema, bilateral upper extremities and 2+ to 3+ in bilateral lower extremities. No cyanosis or deformities noted. SKIN: Warm to touch without rash, pallor, or abrasion. LABORATORY VALUES: WBC 8.9, hemoglobin and hematocrit 11.4/34.6, platelets 444. Sodium 137, potassium 4.5, chloride 105, bicarb 20, glucose 109, BUN and creatinine 45/6.17, GFR 7, total protein is 5.1, albumin 2.2, lipase 11. BNP 292.8. Troponin I negative x1. IMAGING: One-view chest x-ray 11/30/2019, reveals tiny right and small left pleural effusions with bibasilar atelectasis. ASSESSMENT: 1. Acute kidney injury on chronic kidney disease stage 3 in patient with known focal segmental glomerulosclerosis. The patient will be admitted to inpatient status, placed on telemetry monitoring. She has had progressive complaints of peripheral edema and volume overload. However, she appears intravascularly depleted. Discussed case with the patient's replanting machine operator. The patient was administered IV albumin 25 g in the ER. We will continue IV albumin 25 g every 6 hours. We will defer any diuretic or fluid administration at this time and reassess the patient's renal function, volume status, and electrolytes. We will avoid nephrotoxins. 2. Uncontrolled hypertension, improved. We will continue the patient's clonidine patch, oral Lopressor twice daily, and continue to hold losartan. 3. History of recent hospitalization for acute kidney injury on chronic kidney disease 3. 4. Constitutional symptoms likely attributed to #1. Deep venous thrombosis prophylaxis, subcutaneous Lovenox. Check a.m. labs. CODE STATUS: Full code. This was discussed with the patient. The patient's surrogate decision maker is her spouse, Jonh. DISPOSITION: The patient will be admitted as inpatient status and placed on telemetry monitoring. Job ID: [id number] MTDD
[2019-11-30] MEDS ORDERED: Ondansetron ODT 4 MG TAB SL PRN (23:10)
[2019-11-30] MEDS ORDERED: Ondansetron PF 4 MG/2 ML Vial IVP PRN (23:10)
[2019-11-30] MEDS ORDERED: hydrALAZINE 20 MG/ML VIAL SLOW IVP PRN (23:10)
[2019-11-30] MEDS ORDERED: cloNIDine 0.2 MG TAB PO PRN (23:10)
[2019-11-30 23:23] VITALS: BMI 23.7
[2019-11-30] MEDS: Albumin 25% 25 GM/100 ML BOT IVPB SCH (23:56)
[2019-12-01 00:23] LABS: Bacteria/HPF 4+ HPF (None Seen); Bilirubin Negative (Negative); Blood, Urine 1+ (Negative); Clarity Extra Turbid (Clear); Glucose, Urine (Dipstick) 150 mg/dL (Negative); Leukocyte 500 Leu/uL (Negative); Nitrite Negative (Negative); Protein, Urine (Dipstick) 300 mg/dL (Neg-Trace); RBC/HPF 21-50 HPF (0-3); Transitional Epithelial 0-3 HPF (None Seen); Urobilinogen Normal mg/dL (Less than 2); WBC/HPF Greater than 50 HPF (0-3)
[2019-12-01 00:39] LABS: Creatinine, Urine 110.31 mg/dL (47-110)
--- NOTE | 2019-12-01 02:41 | CON ---
DATE OF CONSULTATION: HISTORY OF PRESENT ILLNESS: Ms. Jacobs is a 64-year-old white female with known history of chronic renal failure secondary to biopsy-proven FSGS, nephrotic syndrome and admitted due to persistent nausea and decreased p.o. intake. The patient called me about 5 days ago and at that time was told that she had a creatinine of 3.16 with a GFR 15 mL/minute. It was decided at that time to discontinue the losartan completely. Over the last few days, the patient has had nausea and decreased p.o. intake for the last several days. This afternoon, she was complaining of generalized malaise and persistent nausea. She was seen today, at that time at the ER, she was noted to have a creatinine 6.17. We are now being consulted for further management of her chronic renal failure/acute kidney injury. REVIEW OF SYSTEMS: Positive for nausea. Positive for decreased p.o. intake. Positive for generalized edema. No diarrhea. No constipation. No productive cough. No fever or chills. No gross hematuria. No dysuria. No urinary frequency. Occasional joint pains. No abdominal pain. MEDICATIONS: Include the following; 1. Clonidine topical/TTS-1 q.7 days. 2. Metoprolol tartrate 50 mg p.o. b.i.d. 3. Amlodipine 10 mg tablet once a day. 4. Furosemide 80 mg tablet daily? PAST MEDICAL HISTORY: 1. Chronic renal failure secondary to biopsy-proven FSGS. 2. Nephrotic syndrome. 3. Hypertension. 4. History of cervical myelopathy with decreased motor strength of the lower extremities. 5. History of retinitis pigmentosa. 6. History of osteoporosis. PAST SURGICAL HISTORY: Status post renal biopsy, status post reconstruction of the foot, status post colonoscopy, status post cataract surgery, status post cervical neck surgery, status post left hip surgery. FAMILY HISTORY: No family history of ESRD. TRAUMA: Status post left hip fracture. ALLERGIES: NONE. IMMUNIZATION: Up-to-date. HOSPITALIZATIONS: Please see past medical history. SOCIAL HISTORY: The patient lives in [place]. , 2 children. Retired high school nurse. No IV drug abuse. No alcohol. No blood transfusion. Retired school nurse. PHYSICAL EXAMINATION: VITAL SIGNS: Blood pressure noted at 200/70, heart rate 70. GENERAL: Noted to be awake, alert, supine, comfortable, not in overt distress. SKIN: Adequate turgor. HEENT: Pinkish conjunctivae. Anicteric sclerae. NECK: No neck mass. No carotid bruits. No JVD. CHEST: No deformities. LUNGS: Clear breath sounds. HEART: Normal sinus rhythm. No murmurs, gallops, or rubs. ABDOMEN: Globular, soft, nontender. No masses. EXTREMITIES: Positive for edema. NEUROLOGICAL: Awake, oriented to 3 spheres. Moving all extremities. No tremors. No asterixis. No ataxia. LABORATORY DATA: Laboratories of November 30, 2019; sodium 137, potassium 4.5, chloride 105, carbon dioxide 20, BUN 45, creatinine 6.17, GFR 7 mL/minute glucose 109, calcium 7.8, AST 13, ALT 10, albumin is 2.2, CK 57, troponin I less than 0.010. BNP 292. Chest x-ray shows small pleural effusion. Urinalysis and urine chemistries pending. Renal ultrasound pending. ASSESSMENT AND PLAN: 1. Acute kidney injury on top of her chronic renal failure-the patient has worsening renal dysfunction. There may be a component of prerenal azotemia. In the last 2-3 days, the patient has had decreased p.o. intake and has concomitant nausea and has not been eating or drinking at all. In addition, when her creatinine was noted back on November 23, 2019 with the creatinine 3.16, her losartan was completely discontinued. Most recent creatinine is now 6.17. The plan is to empirically hydrate the patient. Albumin 25 g IV q.6 has been ordered. We will review urinalysis to see if there are any superimposed acute tubular necrosis with this patient. 2. Nausea, chronic in nature. Consider GI consult with Dr. Mohamud. This nausea has been persistent. Please note that initially it was thought it was secondary from this immunosuppressive regimen-tacrolimus, but this was proven not to be the case. When the tacrolimus was discontinued, the nausea was said to have been persistent. 3. Overall prognosis with this patient remains guarded. 4. We will manage her supportively. 5. Hypertension-the patient has been restarted on clonidine as well on IV hydralazine. 6. Case discussed at length with the patient and her as well as her daughter. Consider rechecking another basic metabolic panel, CBC in a.m. Job ID: [id number]
[2019-12-01 05:04] LABS: ALT (SGPT) 7 U/L (8-55); AST (SGOT) 11 U/L (5-34); Albumin 2.4 g/dL (3.4-4.8); Alkaline Phosphatase 60 U/L (40-110); Anion Gap 15 mmol/L (10-20); BUN (Urea Nitrogen) 46 mg/dL (9.8-20.1); Bilirubin, Total 0.3 mg/dL (0.2-1.2); Calc. Creatinine Clearance 10 mL/min (70-130); Calcium 7.5 mg/dL (7.8-10.44); Carbon Dioxide 19 mmol/L (23-31); Chloride 108 mmol/L (98-107); Estimated GFR-MDRD 7; Globulin 1.8 g/dL (2.4-3.5); Glucose 94 mg/dL (80-115); Potassium 3.7 mmol/L (3.5-5.1); Protein, Total 4.2 g/dL (6.0-8.3); Sodium 138 mmol/L (136-145)
[2019-12-01] MEDS: Albumin 25% 25 GM/100 ML BOT IVPB SCH ×4 (05:07→20:28)
[2019-12-01] MEDS: hydrALAZINE 25 MG TAB PO SCH ×3 (08:25→23:06)
[2019-12-01] MEDS: cloNIDine 0.2 MG TAB PO SCH ×2 (08:26→23:06)
[2019-12-01] MEDS ORDERED: Prevnar 13-Val Conj/PF 0.5 ML SYRINGE IM ONE (09:00)
[2019-12-01] MEDS ORDERED: Enoxaparin Sodium 40 MG/0.4 ML SYRINGE SC SCH (09:00)
[2019-12-01] MEDS ORDERED: FLU VACC TS2019-20(65YR UP)/PF 180 MCG/0.5 ML SYRINGE IM ONE (09:00)
--- NOTE | 2019-12-01 09:25 | ULT ---
US Renal Bilateral STANDARD History: Renal failure Comparison: Renal ultrasound June 2019 Findings: Right kidney measures 10.1 x 4 x 5.1 cm and the left kidney measures 11.1 x 5.8 x 5.2 cm. P revoid urinary bladder volume is 20 mL. Mild free fluid in the pelvis. No renal mass, hydronephrosis, or abnormal calcifications. Impression: 1. Mild free fluid in the pelvis. 2. No evidence for obstructive uropathy. 3. Decreased corticomedullary differentiation can be seen with underlying medical renal disease.
[2019-12-01] MEDS: Furosemide 100 MG/10 ML VIAL SLOW IVP SCH ×3 (09:35→20:27)
--- NOTE | 2019-12-01 09:52 | PRG ---
DATE OF SERVICE: 12/01/2019 SUBJECTIVE: Ms. Jacobs is a 64-year-old white female with chronic renal failure from biopsy-proven FSGS. She was admitted for worsening renal dysfunction. A week ago, her losartan was discontinued due to the worsening renal function. However, renal function remained unimproved. Of interest is that a few days prior to admission , she has been having nausea, has not been taking anything. We have started her on albumin. Due to her generalized edema/anasarca, I have decided in spite of the low GFR to start her on Lasix 80 mg IV daily. If she does not respond, we are looking on dialyzing this patient. I also discussed immunosuppressive regimen. However , before I started, she may need a repeat renal biopsy to see if the kidneys are still viable. No other complaints today. No chest pain or shortness of breath. Positive for leg edema. OBJECTIVE: VITAL SIGNS: Blood pressure 182/86, heart rate 83, respiratory rate 18, temperature 97.5, and pulse ox 96%. GENERAL Awake, alert, comfortable, not in distress. SKIN: Adequate turgor. HEENT: Slightly pale conjunctivae. Anicteric sclerae. No neck mass. No carotid bruits. No JVD. CHEST: No deformities. LUNGS: Clear breath sounds. HEART: Normal sinus rhythm. No murmurs. No gallops. No rubs. ABDOMEN: Globular, soft, and nontender. Positive for edema. MEDICATIONS: Medications of December 01, was reviewed. LABORATORY DATA: Laboratories of December 01, 2019; sodium 140, potassium 3.7, chloride 108, carbon dioxide 19, BUN 46, creatinine 6.32, GFR 7 mL/min, AST 11, ALT 7, and albumin 2.4. ASSESSMENT AND PLAN: 1. Acute kidney injury/chronic renal failure, possibility of a superimposed prerenal azotemia always remains. Albumin infusion 25 g IV q.6. Due to the generalized edema, we will add Lasix 80 mg IV daily. No indication for any emergent hemodialysis for the moment. I am reconsidering doing a repeat renal biopsy to see if the kidneys are still viable prior to initiation of immunosuppressive for her FSGS. Overall, prognosis remains guarded. I have a long discussion with the patient and her . It is possible that the worsening renal function may simply reflect disease progression of her FSGS and she may have had reach ESRD. If no improvement, we will initiate dialytic intervention with the patient. I am also hesitant to start immunosuppressive medications if she already has reached ESRD. Ideally we should proceed in considering her for renal transplantation. 2. Nausea - GI has been consulted; 3. Agree with current management. Job ID: [id number] MTDD
[2019-12-01] MEDS: Ondansetron PF 4 MG/2 ML Vial SLOW IVP PRN ×3 (10:07→22:54)
--- NOTE | 2019-12-01 14:57 | CON ---
DATE OF CONSULTATION: 12/01/2019 REQUESTING PHYSICIAN: Yemi Castellon MD REASON FOR CONSULTATION: Chronic nausea. HISTORY OF PRESENT ILLNESS: Sujey Jacobs is a 64-year-old woman, patient of my GI colleague, Dr. Kobe Mohamud. She has a history significant for FSGS with nephrotic syndrome and chronic kidney disease. She also has a history of cervical myelopathy and has undergone left hip surgery in the past. The patient has some chronic anemia. She was recently evaluated by Dr. Mohamud for this and had EGD and colonoscopy on 08/27/2019. The EGD was normal. The colonoscopy showed only external hemorrhoids and sigmoid diverticulosis as well as a 4 mm tubular adenoma, which was completely removed and Dr. Mohamud has recommended followup in 5 years. The patient states she was not really having any overt gastrointestinal symptoms at that time. However, now for the past six weeks or so since late September, she has been having chronic daily nausea. She describes this as essentially constant, a sensation of poor appetite, and increased gag reflex, simply not wanting to swallow food. She does not have any dysphagia or odynophagia. She denies any abdominal pain with this. Bowel movements have not changed, but symptoms have worsened over the past five days, particularly and though, she has been able to drink fluids. She really has not had any food because of this. Over the past week, she has had deterioration in her renal function with creatinine going from 3.16 to 6.32. She has been admitted and is now receiving IV albumin infusions per Dr. Chavarria. The prognosis is guarded from a renal perspective, and it is possible she may end up needing dialysis. Notably, the patient had CT and ultrasound imaging in late September. The CT of the abdomen and pelvis just showed volume overload, but was otherwise unremarkable and the abdominal ultrasound showed gallbladder sludge, but no gallbladder thickening or pericholecystic fluid and a normal common bile duct. PAST MEDICAL HISTORY: Focal segmental glomerulosclerosis, chronic kidney disease, anasarca, chronic anemia, osteoporosis, cervical myelopathy, renal biopsy, left hip surgery, and colon polyp, removed on colonoscopy 08/27/2019. ALLERGIES: NO KNOWN DRUG ALLERGIES. MEDICATIONS: 1. Tylenol p.r.n. 2. IV albumin. 3. Clonidine 0.2 mg p.o. b.i.d. 4. Lovenox 30 mg subcutaneous daily. 5. Lasix 80 mg IV daily. 6. Hydralazine 75 mg t.i.d. 7. Zofran p.r.n. FAMILY HISTORY: Father had colon cancer. SOCIAL HISTORY: No alcohol or drug use. PHYSICAL EXAMINATION: VITAL SIGNS: Temperature 97.5, blood pressure 113/55, pulse 107, and 96% oxygen saturation on room air. GENERAL: A 64-year-old woman, lying in bed comfortably, in no distress. MENTAL: Alert and fully oriented. Pleasant and conversational. SKIN: No jaundice. No rashes were palpable. EYES: No scleral icterus. Extraocular movements intact. ENT: The patient does have some white plaque overlying the tongue consistent with oral thrush. LYMPH: No submandibular or supraclavicular lymphadenopathy. THYROID: Nontender to palpation. HEART: Regular rate and rhythm. LUNGS: Clear to auscultation bilaterally. ABDOMEN: Nondistended. Bowel sounds present. Soft and nontender to palpation. EXTREMITIES: 1+ bilateral lower extremity edema. NEURO: Cranial nerves 2 through 12 intact bilaterally. LABORATORY STUDIES: WBC 7.7, hemoglobin 9.5, MCV 91.5, and platelets 343. Sodium 138, potassium 3.7, BUN 46, and creatinine 6.32. Urinalysis greater than 50 wbc's with positive leukocyte esterase. BNP is elevated to 292.8 and troponin negative. Lipase 11. CK 57. LFTs all normal with total bilirubin 0.3, alkaline phosphatase 60, AST 11, ALT 7, and albumin low at 2.4. IMAGING STUDIES: Chest x-ray shows bilateral small pleural effusions. Renal ultrasound shows no evidence of obstructive uropathy. On 10/22/2019, CT abdomen and pelvis demonstrated normal appearing liver, gallbladder, pancreas, spleen, and kidneys. There was volume overload. On 10/24/2019, abdominal ultrasound showed gallbladder sludge, but no pericholecystic fluid or gallbladder wall thickening, normal common bile duct. ASSESSMENT AND PLAN: 1. Chronic nausea, now for greater than 1 month. 2. Oral thrush. 3. Gallbladder sludge. I note the patient had essentially negative esophagogastroduodenoscopy and colonoscopy in early August, but these nausea symptoms are newer since then just over the past 5 to 6 weeks. I suppose it is possible there may be some new upper GI mucosal pathology contributing. Notably, it does appear she has oral thrush, and Paulette esophagitis as a significant possibility. I would not just empirically treat this given her comorbidities. I think further investigation would be reasonable, so we will plan for diagnostic esophagogastroduodenoscopy tomorrow. If the esophagogastroduodenoscopy was normal, then we could plan for HIDA scan to evaluate for biliary dyskinesia. Otherwise, consider the nausea may be a manifestation of her worsening nephrotic syndrome and generalized anasarca. Continue with supportive care in the meantime. Job ID: [id number]
--- NOTE | 2019-12-01 15:19 | PDOC.HOSPP ---
- Subjective Encounter Date: 12/01/19 Encounter Time: 11:15 Subjective: pt up in bed has pain on swallowing. - Objective Vital Signs & Weight: Vital Signs (12 hours) Temp Pulse Resp BP BP Pulse Ox 12/01/19 12:01 107 H 113/55 L 12/01/19 10:12 92 112/56 L 12/01/19 08:26 182/86 H 12/01/19 08:25 83 182/86 H 12/01/19 08:00 97.5 F L 83 18 182/86 H 96 12/01/19 03:59 97.6 F 86 16 156/73 H 95 Weight Weight 151 lb 11.2 oz Result Diagrams: 11/30/19 22:29 12/01/19 04:09 Hospitalist ROS - Review of Systems Cardiovascular: denies: chest pain, palpitations, orthopnea, paroxysmal noc. dyspnea, edema, light headedness, other Gastrointestinal: denies: nausea, vomiting, abdominal pain, diarrhea, constipation, melena, hematochezia, other Genitourinary: denies: dysuria, frequency, incontinence, hematuria, retention, other - Medication Medications: Active Medications Generic Name Dose Route Start Last Admin Trade Name Freq PRN Reason Stop Dose Admin Albumin Human 25 gm 11/30/19 23:00 12/01/19 11:24 Albumin 25% IVPB 12/01/19 23:01 25 gm 0500,1100,1700,2300 SORIN Administration Clonidine 0.2 mg 12/01/19 09:00 12/01/19 08:26 Catapres PO 0.2 mg BID SORIN Administration Furosemide 80 mg 12/01/19 09:00 12/01/19 09:35 Lasix SLOW IVP 80 mg DAILY SORIN Administration Hydralazine HCl 75 mg 12/01/19 09:00 12/01/19 08:25 Apresoline PO 75 mg TID SORIN Administration Ondansetron HCl 4 mg 12/01/19 10:03 12/01/19 10:07 Zofran SLOW IVP 4 mg Q4H PRN Administration Nausea/Vomiting - Exam ENT - other findings: oral thrush noted Heart: negative: RRR, no murmur, no gallops, no rubs, normal peripheral pulses, irregular, diminshed peripheral pulses, murmur present, II/IV, III/IV Respiratory: negative: CTAB, no wheezes, no rales, no ronchi, normal chest expansion, no tachypnea, normal percussion, rales, rhonchi, tachypneic, wheezes Gastrointestinal: negative: soft, non-tender, non-distended, normal bowel sounds , no palpable masses, no hepatomegaly, no splenomegaly, no bruit, no guarding, no rigidity, tender to palpation, distended, diminished bowl sounds, voluntary guarding Hosp A/P (1) Nausea & vomiting Code(s): R11.2 - NAUSEA WITH VOMITING, UNSPECIFIED Status: Acute (2) Oral candidiasis Code(s): B37.0 - CANDIDAL STOMATITIS Status: Acute (3) Acute kidney injury superimposed on CKD Code(s): N17.9 - ACUTE KIDNEY FAILURE, UNSPECIFIED; N18.9 - CHRONIC KIDNEY DISEASE, UNSPECIFIED Status: Acute (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 she is nauseated will also order zofran prn. she is suppose to have a EGD if negative possible a HIDA scan. I believe her nausea is form uremia. however it is reasonable to rule out other etiology. renal ultrasound ordered. pt states she was on steroids. No steroids are noted on her med list.
[2019-12-01] MEDS: Nystatin 500,000 UNITS/5 ML UDCUP SSW SCH ×2 (16:10→23:06)
[2019-12-01 16:50] LABS: Bacteria/HPF 4+ HPF (None Seen); Bilirubin Negative (Negative); Blood, Urine 1+ (Negative); Clarity Extra Turbid (Clear); Glucose, Urine (Dipstick) 200 mg/dL (Negative); Leukocyte 500 Leu/uL (Negative); Nitrite Negative (Negative); Protein, Urine (Dipstick) 600 mg/dL (Neg-Trace); Urobilinogen Normal mg/dL (Less than 2); WBC/HPF Greater than 50 HPF (0-3)
[2019-12-02] MEDS: Ondansetron PF 4 MG/2 ML Vial SLOW IVP PRN ×2 (04:20→20:26)
[2019-12-02] MEDS: Albumin 25% 25 GM/100 ML BOT IVPB SCH ×3 (04:20→17:13)
[2019-12-02 04:37] LABS: #Eosinphils 0.1 thou/uL (0.0-0.7); #Lymphocytes 1.8 thou/uL (1.20-3.40); #Monocytes 0.4 thou/uL (0.11-0.59); #Neutrophils 6.7 thou/uL (1.40-6.50); %Basophils 0.3 % (0.0-1.0); %Eosinophils 0.6 % (0.0-10.0); %Lymphocytes 19.7 % (21.0-51.0); %Monocytes 4.7 % (0.0-10.0); %Neutrophils 74.7 % (42.0-75.0); Hemoglobin 9.1 g/dL (12.0-16.0); Mean Corpuscular HGB CONC 33.3 g/dL (32.0-36.0); Mean Corpuscular Hemoglobin 30.5 pg (27.0-31.0); Mean Corpuscular Volume 91.5 fL (78.0-98.0); Mean Platelet Volume 7.7 fL (7.4-10.4); Platelet Count 379 thou/uL (130-400); RBC Distribution Width 13.1 % (11.5-14.5); Red Blood Cell (RBC) Count 2.98 mill/uL (4.20-5.40); White Blood Cell (WBC) Count 8.9 thou/uL (4.8-10.8)
[2019-12-02 04:54] LABS: Anion Gap 19 mmol/L (10-20); BUN (Urea Nitrogen) 47 mg/dL (9.8-20.1); Calc. Creatinine Clearance 9 mL/min (70-130); Calcium 7.7 mg/dL (7.8-10.44); Carbon Dioxide 15 mmol/L (23-31); Chloride 107 mmol/L (98-107); Estimated GFR-MDRD 6; Glucose 104 mg/dL (80-115); Potassium 3.9 mmol/L (3.5-5.1); Sodium 137 mmol/L (136-145)
[2019-12-02] MEDS ORDERED: Promethazine HCl 25 MG/ML VIAL SLOW IVP SCH (08:15)
[2019-12-02] MEDS: Famotidine/PF 20 mg/2ml Vial SLOW IVP SCH (08:37)
[2019-12-02] MEDS: cloNIDine 0.2 MG TAB PO SCH ×2 (08:43→20:26)
[2019-12-02] MEDS: hydrALAZINE 25 MG TAB PO SCH ×3 (08:43→20:26)
[2019-12-02] MEDS: Furosemide 100 MG/10 ML VIAL SLOW IVP SCH (08:43)
[2019-12-02] MEDS: Nystatin 500,000 UNITS/5 ML UDCUP SSW SCH ×4 (08:43→20:26)
[2019-12-02] MEDS ORDERED: Enoxaparin Sodium 30 MG/0.3 ML SYRINGE SC SCH (09:00)
[2019-12-02] MEDS ORDERED: CEFAZOLIN 2 GM in Premix Bag 1 BAG IVPB SCH (09:30)
--- NOTE | 2019-12-02 09:35 | PRG ---
DATE OF SERVICE: 12/02/2019 SERVICE: Renal Medicine. SUBJECTIVE: Ms. Jacobs is a 64-year-old white female, who was admitted for persistent nausea. The patient was also noted to have worsening renal dysfunction. She has a known diagnosis of chronic renal failure from biopsy-proven FSGS. An attempt to volume replete since the patient has a history of decreased p.o. intake for several days was done. Albumin infusion was done. At the same time, I added Lasix due to the generalized edema/anasarca with this patient. She made less than adequate urine output with IV Lasix. For the moment, we will discontinue IV Lasix. I have decided to continue her on albumin infusion. I did discuss with the patient, , and her daughter that we should proceed with dialysis due to the worsening renal dysfunction. GFR is now 6 mL/minute. The nausea will be addressed by GI, who plans to do a repeat upper GI endoscopy. The patient denies any chest pain. OBJECTIVE: VITAL SIGNS: Blood pressure 162/74, heart rate 107, respiratory rate 22, temperature 98, and pulse ox 92% on room air. GENERAL: Noted to be awake, supine, not in cardiorespiratory distress. SKIN: Adequate turgor. HEENT: She has pinkish conjunctivae. Anicteric sclerae. NECK: No neck mass. No carotid bruits. No JVD. CHEST: No deformities. LUNGS: Clear breath sounds. No wheezing. No crackles. HEART: Normal sinus rhythm. No murmurs, gallops, or rubs. ABDOMEN: Globular, soft, nontender. No masses. EXTREMITIES: No edema. No deformities. MEDICATIONS: Medications of December 02, 2019, were reviewed. LABORATORY DATA: Laboratories of December 02, 2019; white count 8.9, hemoglobin 9.1. Sodium 137, potassium 3.9, chloride 107, carbon dioxide 15, BUN 47, creatinine 6.73, glucose 104, calcium 7.7. Albumin 2.4. ASSESSMENT AND PLAN: 1. Chronic renal failure from biopsy-proven FSGS - my concern is that this may be a progression of her disease process - her FSGS. In the past, we have offered immunosuppressive regimen with this patient, but she has declined it. I am planning to do a renal biopsy, but with her persistent nausea and worsening renal dysfunction, I will hold off the biopsy temporarily. I have consulted Surgery for placement of a cuffed hemodialysis catheter placement. We will initiate dialysis once the dialysis catheter is placed. 2. Persistent nausea - GI has been consulted. Repeat upper GI endoscopy will be done. 3. Hypoalbuminemia - currently on albumin infusion. 4. Anasarca - unresponsive to diuretics. We will initiate dialysis. 5. Please note that the renal ultrasound ordered yesterday showed no evidence of obstruction, but it showed decreased corticomedullary differentiation, which is suggestive of chronicity of her renal failure. 6. We will recheck basic metabolic, CBC, intact PTH, and phosphorus in a.m. Job ID: [id number]
--- NOTE | 2019-12-02 09:48 | CON ---
DATE OF CONSULTATION: HISTORY: Sujey Jacobs is a 64-year-old female, [place], has been followed by Dr. Chavarria for chronic glomerulonephritis and progressive renal failure, now presents with nausea, fatigue, malaise, found to have deteriorating renal function, needed to start dialysis. I have been asked by Dr. Chavarria to place dialysis access. She had a colonoscopy 2 months ago revealing benign polyps. She reports an EGD 2 months ago. She on admission was noted to have GFR of 6, potassium of 3.9, BUN of 47, and creatinine 6.7. Plan is for ultrasound vein mapping in both arms for future fistular graft placement, but today placement of hemodialysis catheter, possible central line. She understands risks and benefits, and consents. ALLERGIES: NONE. TOBACCO: None. ALCOHOL: None. MEDICATIONS: 1. Omeprazole. 2. Furosemide. 3. Clonidine. 4. Metoprolol. PAST SURGICAL HISTORY: Left hip surgery, left foot surgery, tendon transfer, C5-C6 cervical spine surgery, cataract surgery, colonoscopy and EGD 2 months ago. PAST MEDICAL HISTORY: Glomerulonephritis and hypertension. REVIEW OF SYSTEMS: Ten-point noncontributory. No past history of cardiac problems. SOCIAL HISTORY: The patient is a retired school nurse. PHYSICAL EXAMINATION: VITAL SIGNS: Height 5 feet 7 inches, 151 pounds, BMI 23, temperature 98 degrees, heart rate 107, and blood pressure 162/74. HEAD, EARS, EYES, NOSE, AND THROAT: Unremarkable. LUNGS: Clear to auscultation. CARDIAC: Regular rate and rhythm without murmur or gallop. ABDOMEN: Soft and nontender. EXTREMITIES: No ankle edema. Good radial pulses palpable. No visibly demonstrable vein in either arm. IV Hep-Lock in hand. ASSESSMENT AND PLAN: End-stage renal disease. PLAN: 1. Placement of hemodialysis catheter and possible central line today to initiate dialysis and then plan placement of a primary fistula later this week. She understands risks and benefits, and consents. 2. Hypertension. Job ID: [id number]
[2019-12-02] MEDS ORDERED: Ondansetron PF 4 MG/2 ML Vial ONE (10:18)
[2019-12-02] MEDS ORDERED: PROPOFOL 200 MG/20 ML VIAL ONE (10:18)
[2019-12-02] MEDS ORDERED: Metoclopramide HCl 10 MG/2 ML VIAL ONE (10:18)
[2019-12-02] MEDS ORDERED: Heparin 10,000 UNITS/1 ML VIAL ONE ×2 (12:31→13:18)
[2019-12-02] MEDS ORDERED: Lidocaine 1% w/Epinephrine 1:100K 20 ML VIAL ONE (12:31)
[2019-12-02] MEDS ORDERED: Sodium Chloride 0.9% 20 ML ONE ×2 (12:31)
[2019-12-02] MEDS ORDERED: Bupivacaine PF 0.5% 30 ML VIAL ONE (12:31)
[2019-12-02] MEDS ORDERED: Midazolam HCl 2 mg/2 ml Vial ONE (12:36)
[2019-12-02] MEDS ORDERED: Fentanyl 100 MCG/2 ML VIAL ONE ×2 (12:36→14:04)
[2019-12-02] MEDS ORDERED: Ketamine 50 MG/ML (10ML VIAL) ONE (12:37)
[2019-12-02] MEDS ORDERED: traMADol HCl 50 MG TAB PO PRN (13:34)
--- NOTE | 2019-12-02 13:57 | OP ---
DATE OF PROCEDURE: 12/02/2019 PREOPERATIVE DIAGNOSES: 1. End-stage renal disease. 2. Poor IV access. POSTOPERATIVE DIAGNOSES: 1. End-stage renal disease. 2. Poor IV access. PROCEDURES PERFORMED: 1. Right IJ cuffed tunneled dialysis catheter. 2. Left IJ central line, triple lumen. ANESTHESIA: Intravenous sedation and local with 0.5% Marcaine with epinephrine 30 mL mixed with 1% Xylocaine with epinephrine 20 mL. Fluoroscopy and ultrasound used. Note, during the same procedure, Dr. Manning completed the EGD. DESCRIPTION OF PROCEDURE: The patient was taken to the operating room, where under intravenous sedation, neck and chest were prepared with ChloraPrep and draped in routine fashion. Local anesthetic was infiltrated in the skin and subcutaneous tissue about the operative site. Ultrasound used to cannulate the right and left internal jugular veins. J-wire threaded, trocar catheter removed. Skin site was enlarged sharply. Stab incision was made over the right chest at the planned exit site of hemodialysis catheter. Seldinger technique was used to place a triple-lumen catheter in the left IJ, secured with 3-0 nylon suture. Each port aspirated blood, flushed with saline solution. On the right side, the tunneling device was used to tunnel the pre-curved [employer] cuffed-tunneled hemodialysis catheter between 2 incisions, placed the fabric cuff beneath the skin exit site, catheter was secured with 2 interrupted sutures of 3-0 nylon. Small and medium size dilators placed over the J-wire in the internal jugular vein, removed. Dilator and Peel-Away sheath placed over the J-wire in the internal jugular vein and superior vena cava. Dilator and J-wire were removed. Catheter placed with the Peel-Away sheath. Peel-Away sheath removed. Fluoroscopic images revealed good line placement. Subcutaneous tissue was approximated with 3-0 Monocryl, skin with subdermal 4-0 Monocryl, and [place] glue applied. Each port aspirated blood, flushed with heparinized saline solution and 1000 units heparin per mL, indicating volume of the port. Job ID: [id number]
--- NOTE | 2019-12-02 14:24 | RAD ---
Exam: Chest one view HISTORY:Hemodialysis catheter placement Comparison: 11/30/2019 FINDINGS: Cardiac silhouette:Normal cardiac silhouette Lines and tubes: Interval placement of a left-sided internal jugular central venous catheter, termina ting over the region of the superior vena cava. Interval placement of right-sided HemoSplit dialysis catheter also terminating over the region superior vena cava. Aorta: Unremarkable Pulmonary vessels: Normal Costophrenic angles: Bilateral pleural effusions LUNGS: Bibasilar right greater than left parenchymal opacities due to atelectasis, pneumonia or aspir ation Pneumothorax: None Osseous abnormalities: None IMPRESSION: 1. Bibasilar pleural and parenchymal changes. 2. No pneumothorax 3. HemoSplit osseous catheter and internal jugular venous catheter as described above.
[2019-12-02] MEDS ORDERED: Ondansetron HCl/PF 4 MG/2 ML Vial IVP PRN (14:50)
[2019-12-02] MEDS ORDERED: Promethazine HCl 25 MG/ML VIAL SLOW IVP PRN (14:50)
[2019-12-02] MEDS ORDERED: Promethazine HCl 25 MG/ML VIAL IM PRN (14:50)
--- NOTE | 2019-12-02 15:11 | OP ---
DATE OF PROCEDURE: 12/02/2019 TRAINING MGR SURGEON: None. PROCEDURE PERFORMED: Esophagogastroduodenoscopy, diagnostic. INDICATION: Chronic nausea, in the context of progressive uremia. MEDICATIONS: See Anesthesia record. FINDINGS: After discussion of the risks, benefits, and alternatives of the procedure, informed consent was obtained and witnessed. The procedure was performed in the operating room following Dr. Manjarrez's placement of dialysis catheter, under the same anesthesia. The patient was kept in the supine position. A Pentax adult upper endoscope was placed into the oropharynx and passed through the cricopharyngeus under direct visualization. The esophageal mucosa appeared normal throughout with a normal-appearing Z-line at 40 cm from the incisors. There was no evidence of any esophagitis. No plaques in the esophagus. The endoscope was advanced into the stomach. Forward and retroflexed views of the entire gastric mucosa were obtained. There was a very small sliding hiatal hernia. The stomach was otherwise normal. No mucosal abnormalities were seen. The endoscope was passed through the pylorus and into the first and second portions of the duodenum, which also appeared normal. The upper endoscope was then completely withdrawn and the patient allowed to recover. The patient tolerated the procedure well. There were no immediate postprocedure complications. IMPRESSION: 1. Small hiatal hernia. 2. Otherwise, normal esophagogastroduodenoscopy. RECOMMENDATIONS: 1. Continue supportive care and antiemetics. 2. Proceed with dialysis as planned. Job ID: [id number]
[2019-12-02 16:26] LABS: HBSAg Index 0.23 S/CO (0-0.99); Hep B Core Total Ab Non-Reactive (NonReactive); Hep B Core Total Index 0.06 S/CO (0-0.79); Hep B Surf Ag Non-Reactive S/CO (NonReactive); Hep C IgG Ab Non-Reactive (NonReactive); Hep C Index 0.72 S/CO (0-0.79)
[2019-12-02 17:23] LABS: Hep B Surf AB EQUIVOCAL (NonReactive)
[2019-12-02 17:24] LABS: HBSAB Concentration 10.79 mIU/mL
--- NOTE | 2019-12-02 17:56 | ULT ---
BILATERAL UPPER EXTREMITY VENOUS MAPPIN12/02/19 HISTORY: Dialysis access. FINDINGS: RIGHT UPPER EXTREMITY BRACHIAL ARTERY: 4.8 mm RADIAL ARTERY: 2.5 mm ULNAR ARTERY: 1.8 mm CEPHALIC VEIN Upper Arm: 0.4 mm Mid Arm: 0.6 mm Distal Arm: 1.4 mm Antecubital Fossa: 1.2 mm Proximal Forearm: 1.8 mm Mid Forearm: 1.8 mm Distal Forearm: 0.8 mm BASILIC VEIN Upper Arm: 3.6 mm Mid Arm: 2.8 mm Distal Arm: 1.8 mm Antecubital Fossa: 1.5 mm Proximal Forearm: 0.5 mm Mid Forearm: 0.7 mm Distal Forearm: 0.9 mm LEFT UPPER EXTREMITY BRACHIAL ARTERY: 4.1 mm RADIAL ARTERY: 2.7 mm ULNAR ARTERY: 2.2 mm CEPHALIC VEIN Upper Arm: 0.8 mm Mid Arm: 1.1 mm Distal Arm: 0.9 mm Antecubital Fossa: 0.6 mm Proximal Forearm: 1 mm Mid Forearm: 0.7 mm Distal Forearm: 1 mm BASILIC VEIN Upper Arm: 3 mm Mid Arm: 2.9 mm Distal Arm: 3.2 mm Antecubital Fossa: 2.5 mm Proximal Forearm: 1.7 mm Mid Forearm: 1.8 mm Distal Forearm: 0.6 mm There is normal lumen compressibility seen within the bilateral internal jugular and axillary veins w ith flow present within each subclavian vein. IMPRESSION: Venous and arterial diameters as described above. POS: [facility]
[2019-12-03 05:10] LABS: #Eosinphils 0.1 thou/uL (0.0-0.7); #Lymphocytes 2.2 thou/uL (1.20-3.40); #Monocytes 0.6 thou/uL (0.11-0.59); #Neutrophils 6.3 thou/uL (1.40-6.50); %Basophils 0.4 % (0.0-1.0); %Eosinophils 1.2 % (0.0-10.0); %Lymphocytes 23.2 % (21.0-51.0); %Monocytes 6.9 % (0.0-10.0); %Neutrophils 68.2 % (42.0-75.0); Hemoglobin 9.3 g/dL (12.0-16.0); Mean Corpuscular HGB CONC 33.5 g/dL (32.0-36.0); Mean Corpuscular Hemoglobin 31.2 pg (27.0-31.0); Mean Corpuscular Volume 93.2 fL (78.0-98.0); Mean Platelet Volume 7.7 fL (7.4-10.4); Platelet Count 393 thou/uL (130-400); RBC Distribution Width 13.2 % (11.5-14.5); Red Blood Cell (RBC) Count 2.98 mill/uL (4.20-5.40); White Blood Cell (WBC) Count 9.3 thou/uL (4.8-10.8)
[2019-12-03 05:34] LABS: Anion Gap 15 mmol/L (10-20); BUN (Urea Nitrogen) 37 mg/dL (9.8-20.1); Calc. Creatinine Clearance 10 mL/min (70-130); Calcium 7.8 mg/dL (7.8-10.44); Carbon Dioxide 22 mmol/L (23-31); Chloride 108 mmol/L (98-107); Estimated GFR-MDRD 7; Glucose 108 mg/dL (80-115); Phosphorus 5.4 mg/dL (2.3-4.7); Potassium 3.8 mmol/L (3.5-5.1); Sodium 141 mmol/L (136-145)
[2019-12-03] MEDS ORDERED: Tuberculin PPD 0.1 ML VIAL I-DERMAL SCH ×2 (08:45→10:00)
--- NOTE | 2019-12-03 08:56 | PRG ---
DATE OF SERVICE: 12/03/2019 SUBJECTIVE: Ms. Jacobs is a 64-year-old white female, who was admitted due to persistent nausea. She was also found to have a worsening renal dysfunction. 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 Due to the progressive nature of renal disease, she was initiated on dialysis. She was also evaluated by GI for her chronic nausea. Phenergan was given during this hospitalization with significant improvement. An upper GI endoscopy was also done which showed no significant lesions. She also has started dialysis yesterday. We did a 1 hour hemodialysis. The patient is scheduled for a 2-hour dialysis run today. She is feeling better with regard to the nausea. She is up and about. OBJECTIVE: VITAL SIGNS: Blood pressure is 186/87, heart rate 106, respiratory rate 16, temperature 97.8, pulse ox 98%. GENERAL: Noted to be awake, alert, sitting comfortable, not in distress. SKIN: Adequate turgor. HEENT: Pinkish conjunctivae. Anicteric sclerae. NECK: No neck mass. No carotid bruits. No JVD. CHEST: No deformities. LUNGS: Clear breath sounds. No wheezing. No crackles. HEART: Normal sinus rhythm. No murmur. No gallops. No rubs. ABDOMEN: Globular, soft, nontender. No masses. EXTREMITIES: No edema. No deformities. MEDICATIONS: Medications of December 03, 2018, was reviewed. LABORATORY DATA: Laboratories of December 13, 2019, white count 9.3, hemoglobin 9.3, sodium 141, potassium 3.8, chloride 108, carbon dioxide 22, BUN 37, creatinine 6.21, glucose 108, calcium 7.8, phosphorus 5.4. PTH is 236. ASSESSMENT AND PLAN: 1. Secondary hyperparathyroidism-start calcitriol 0.25 mcg tablet daily. 2. Hyperphosphatemia. Renvela 800 mg 1 tablet t.i.d. with meals. 3. Chronic renal failure-the patient most likely has reached end-stage renal disease. We will continue daily hemodialysis. We will make arrangements for outpatient dialysis placement. Order PPD. 4. Nausea, p.r.n. Phenergan. 5. Hypertension, adjust BP medications as needed. Overall prognosis remains guarded. Recheck basic metabolic panel and CBC in a.m. Job ID: [id number]
--- NOTE | 2019-12-03 09:15 | PDOC.HOSPP ---
- Subjective Encounter Date: 12/02/19 Encounter Time: 17:45 Subjective: pt was seen in dialysis, was nauseated and was tachycardia. - Objective Vital Signs & Weight: Vital Signs (12 hours) Temp Pulse Resp BP BP Pulse Ox 12/03/19 08:20 97.8 F 106 H 16 186/87 H 98 12/03/19 04:07 98.9 F 107 H 18 177/77 H 94 L 12/03/19 00:00 98.9 F 100 22 H 143/68 H 94 L Weight Weight 153 lb 3.54 oz I&O: 12/02/19 12/03/19 12/04/19 06:59 06:59 06:59 Intake Total 450 450 Output Total 225 500 Balance 225 -50 Result Diagrams: 12/03/19 04:26 12/03/19 04:27 Hospitalist ROS - Review of Systems Cardiovascular: denies: chest pain, palpitations, orthopnea, paroxysmal noc. dyspnea, edema, light headedness, other Gastrointestinal: reports: nausea Genitourinary: denies: dysuria, frequency, incontinence, hematuria, retention, other Musculoskeletal: denies: neck pain, shoulder pain, arm pain, back pain, hand pain, leg pain, foot pain, other - Medication Medications: Active Medications Generic Name Dose Route Start Last Admin Trade Name Freq PRN Reason Stop Dose Admin Clonidine 0.2 mg 12/01/19 09:00 12/02/19 20:26 Catapres PO 0.2 mg BID SORIN Administration Famotidine 20 mg 12/02/19 09:00 12/02/19 08:37 Pepcid SLOW IVP 20 mg DAILY SORIN Administration Hydralazine HCl 75 mg 12/01/19 09:00 12/02/19 20:26 Apresoline PO 75 mg TID SORIN Administration Nystatin 500,000 units 12/01/19 17:00 12/02/19 20:26 Mycostatin SSW 500,000 units QID SORIN Administration Ondansetron HCl 4 mg 12/01/19 10:03 12/02/19 20:26 Zofran SLOW IVP 4 mg Q4H PRN Administration Nausea/Vomiting Sodium Chloride 10 ml 12/01/19 21:00 12/02/19 20:27 Flush - Normal Saline IVF 10 ml Q12HR SORIN Administration - Exam Heart: negative: RRR, no murmur, no gallops, no rubs, normal peripheral pulses, irregular, diminshed peripheral pulses, murmur present, II/IV, III/IV Respiratory: negative: CTAB, no wheezes, no rales, no ronchi, normal chest expansion, no tachypnea, normal percussion, rales, rhonchi, tachypneic, wheezes Gastrointestinal: negative: soft, non-tender, non-distended, normal bowel sounds , no palpable masses, no hepatomegaly, no splenomegaly, no bruit, no guarding, no rigidity, tender to palpation, distended, diminished bowl sounds, voluntary guarding Extremities: negative: no cyanosis, no clubbing, no edema, 1+ LE edema, 2+ LE edema, clubbing Hosp A/P (1) Nausea & vomiting Code(s): R11.2 - NAUSEA WITH VOMITING, UNSPECIFIED Status: Acute (2) Oral candidiasis Code(s): B37.0 - CANDIDAL STOMATITIS Status: Acute (3) Acute kidney injury superimposed on CKD Code(s): N17.9 - ACUTE KIDNEY FAILURE, UNSPECIFIED; N18.9 - CHRONIC KIDNEY DISEASE, UNSPECIFIED Status: Acute (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 she is nauseated will also order zofran prn. she is suppose to have a EGD if negative possible a HIDA scan. I believe her nausea is form uremia. however it is reasonable to rule out other etiology. renal ultrasound ordered. pt states she was on steroids. No steroids are noted on her med list. 12/03 pt appears dehydrated, she has been nauseated and has not been eating or drinking much. will give her iv fluids 500ml. I went back to see the pt around 1809 and her tachycardia had improved and the dialysis nurse stated that she will not remove any fluid.
[2019-12-03] MEDS ORDERED: Heparin 10,000 UNITS/ 10 ML VIAL ONE (11:21)
[2019-12-03] MEDS: hydrALAZINE 25 MG TAB PO SCH ×3 (12:15→20:46)
[2019-12-03] MEDS: Nystatin 500,000 UNITS/5 ML UDCUP SSW SCH ×4 (12:15→20:45)
[2019-12-03] MEDS: cloNIDine 0.2 MG TAB PO SCH ×2 (12:22→20:46)
[2019-12-03] MEDS: Famotidine/PF 20 mg/2ml Vial SLOW IVP SCH (12:23)
[2019-12-03] MEDS: Calcitriol 0.25 MCG CAP PO SCH (12:23)
[2019-12-03] MEDS: Sevelamer Carbonate 800 MG TAB PO SCH ×2 (12:24→18:00)
--- NOTE | 2019-12-03 14:34 | PDOC.HOSPP ---
- Subjective Encounter Date: 12/03/19 Encounter Time: 10:55 Subjective: pt up in bed feels well today, no nausea - Objective Vital Signs & Weight: Vital Signs (12 hours) Temp Pulse Resp BP BP Pulse Ox 12/03/19 12:15 97.8 F 110 H 16 175/84 H 95 12/03/19 08:20 97.8 F 106 H 16 186/87 H 98 12/03/19 04:07 98.9 F 107 H 18 177/77 H 94 L Weight Weight 153 lb 3.54 oz I&O: 12/02/19 12/03/19 12/04/19 06:59 06:59 06:59 Intake Total 450 450 Output Total 225 500 Balance 225 -50 Result Diagrams: 12/03/19 04:26 12/03/19 04:27 Hospitalist ROS - Review of Systems Cardiovascular: denies: chest pain, palpitations, orthopnea, paroxysmal noc. dyspnea, edema, light headedness, other Gastrointestinal: denies: nausea, vomiting, abdominal pain, diarrhea, constipation, melena, hematochezia, other Genitourinary: denies: dysuria, frequency, incontinence, hematuria, retention, other - Medication Medications: Active Medications Generic Name Dose Route Start Last Admin Trade Name Freq PRN Reason Stop Dose Admin Calcitriol 0.25 mcg 12/03/19 09:00 12/03/19 12:23 Rocaltrol PO 0.25 mcg DAILY SORIN Administration Clonidine 0.2 mg 12/01/19 09:00 12/03/19 12:22 Catapres PO 0.2 mg BID SORIN Administration Famotidine 20 mg 12/02/19 09:00 12/03/19 12:23 Pepcid SLOW IVP 20 mg DAILY SORIN Administration Hydralazine HCl 75 mg 12/01/19 09:00 12/03/19 12:15 Apresoline PO Not Given TID SORIN Nystatin 500,000 units 12/01/19 17:00 12/03/19 12:23 Mycostatin SSW 500,000 units QID SORIN Administration Ondansetron HCl 4 mg 12/01/19 10:03 12/02/19 20:26 Zofran SLOW IVP 4 mg Q4H PRN Administration Nausea/Vomiting Sevelamer Carbonate 800 mg 12/03/19 12:00 12/03/19 12:24 Renvela PO 800 mg TID-WM SORIN Administration Sodium Chloride 10 ml 12/01/19 21:00 12/03/19 12:24 Flush - Normal Saline IVF 10 ml Q12HR SORIN Administration - Exam Neck: negative: supple, symmetric, no JVD, no thyromegaly, no lymphadenopathy, no carotid bruit, JVD Heart: negative: RRR, no murmur, no gallops, no rubs, normal peripheral pulses, irregular, diminshed peripheral pulses, murmur present, II/IV, III/IV Respiratory: negative: CTAB, no wheezes, no rales, no ronchi, normal chest expansion, no tachypnea, normal percussion, rales, rhonchi, tachypneic, wheezes Gastrointestinal: negative: soft, non-tender, non-distended, normal bowel sounds , no palpable masses, no hepatomegaly, no splenomegaly, no bruit, no guarding, no rigidity, tender to palpation, distended, diminished bowl sounds, voluntary guarding Hosp A/P (1) Nausea & vomiting Code(s): R11.2 - NAUSEA WITH VOMITING, UNSPECIFIED Status: Acute (2) Oral candidiasis Code(s): B37.0 - CANDIDAL STOMATITIS Status: Acute (3) Acute kidney injury superimposed on CKD Code(s): N17.9 - ACUTE KIDNEY FAILURE, UNSPECIFIED; N18.9 - CHRONIC KIDNEY DISEASE, UNSPECIFIED Status: Acute (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 she is nauseated will also order zofran prn. she is suppose to have a EGD if negative possible a HIDA scan. I believe her nausea is form uremia. however it is reasonable to rule out other etiology. renal ultrasound ordered. pt states she was on steroids. No steroids are noted on her med list. 12/02 pt appears dehydrated, she has been nauseated and has not been eating or drinking much. will give her iv fluids 500ml. I went back to see the pt around 1809 and her tachycardia had improved and the dialysis nurse stated that she will not remove any fluid. 12/03 pt appears well, feels well no more nausea. she has been encouraged to drink. will monitor. egd no acute findings.
--- NOTE | 2019-12-03 15:27 | PRG ---
DATE OF SERVICE: 12/03/2019 SUBJECTIVE: Ms. Jacobs has undergone two dialysis sessions since her procedure yesterday. She is happy to report that she feels a whole lot better. Her nausea has essentially resolved. She has been tolerating her diet today. She has no other complaints. OBJECTIVE: VITAL SIGNS: Temperature 97.8, pulse 110, blood pressure 175/84, and 95% oxygen saturation on room air. GENERAL: Appearing in good spirits, sitting up in the edge of the bed comfortably. HEART: Regular, tachycardia. LUNGS: Clear to auscultation bilaterally. ABDOMEN: Soft, nontender to palpation. EXTREMITIES: No peripheral edema. LABORATORY STUDIES: WBC 9.3, hemoglobin 9.3, platelets 393. Sodium 141, potassium 3.8, BUN 37, creatinine 6.21. PTH is 236.1. ASSESSMENT AND PLAN: 1. Chronic nausea, appears to have been secondary to uremia, significantly improved after starting dialysis. 2. Hiatal hernia, this is small, demonstrated on EGD yesterday. The EGD was otherwise unremarkable. I discussed this briefly with the patient. No specific intervention is recommended for this. She can continue on daily acid suppression. 3. GI will sign off, please call back anytime with questions or concerns. Job ID: [id number]
--- NOTE | 2019-12-03 18:02 | PRG ---
DATE OF SERVICE: 12/03/2019 Sujey Jacobs is discussed with Dr. Chavarria and she desires peritoneal dialysis. Ultrasound of vein mapping reveals that basilic vein may be adequate, but cephalic vein is probably too small. After discussion with her, the plan at this time is for laparoscopic peritoneal dialysis catheter and placement of a left arm fistula if appropriate. She understands possibility of future necessity of revision to a transposition fistula, pending operative findings. Her procedure, risks, and benefits discussed, and she consents. Job ID: [id number]
[2019-12-04 03:50] LABS: #Basophils 0.1 thou/uL (0.0-0.2); #Eosinphils 0.2 thou/uL (0.0-0.7); #Lymphocytes 1.2 thou/uL (1.20-3.40); #Monocytes 0.4 thou/uL (0.11-0.59); #Neutrophils 3.6 thou/uL (1.40-6.50); %Lymphocytes 21.8 % (21.0-51.0); %Monocytes 8.1 % (0.0-10.0); %Neutrophils 65.2 % (42.0-75.0); Hemoglobin 8.2 g/dL (12.0-16.0); Mean Corpuscular HGB CONC 34.5 g/dL (32.0-36.0); Mean Corpuscular Hemoglobin 32.2 pg (27.0-31.0); Mean Corpuscular Volume 93.5 fL (78.0-98.0); Mean Platelet Volume 7.2 fL (7.4-10.4); Platelet Count 269 thou/uL (130-400); RBC Distribution Width 13.2 % (11.5-14.5); Red Blood Cell (RBC) Count 2.54 mill/uL (4.20-5.40); White Blood Cell (WBC) Count 5.4 thou/uL (4.8-10.8)
[2019-12-04 04:22] LABS: Anion Gap 11 mmol/L (10-20); BUN (Urea Nitrogen) 25 mg/dL (9.8-20.1); Calc. Creatinine Clearance 12 mL/min (70-130); Calcium 7.4 mg/dL (7.8-10.44); Carbon Dioxide 26 mmol/L (23-31); Chloride 104 mmol/L (98-107); Estimated GFR-MDRD 9; Glucose 117 mg/dL (80-115); Potassium 3.5 mmol/L (3.5-5.1); Sodium 137 mmol/L (136-145)
[2019-12-04] MEDS ORDERED: Bupivacaine PF 0.5% 30 ML VIAL ONE (08:22)
[2019-12-04] MEDS ORDERED: Protamine Sulfate 250 MG/25 ML VIAL ONE (08:22)
[2019-12-04] MEDS ORDERED: Lidocaine 1% w/Epinephrine 1:100K 20 ML VIAL ONE (08:22)
[2019-12-04] MEDS ORDERED: Protamine Sulfate 50 MG/5 ML VIAL ONE (08:22)
[2019-12-04] MEDS ORDERED: Heparin 5,000 UNITS/ML VIAL ONE (08:22)
[2019-12-04] MEDS ORDERED: Heparin 10,000 UNITS/1 ML VIAL ONE (08:22)
[2019-12-04] MEDS ORDERED: Fentanyl 100 MCG/2 ML VIAL ONE (08:24)
[2019-12-04] MEDS ORDERED: Famotidine/PF 20 mg/2ml Vial ONE (08:24)
[2019-12-04] MEDS ORDERED: traMADol HCl 50 MG TAB PO PRN (08:59)
[2019-12-04] MEDS ORDERED: Ondansetron HCl/PF 4 MG/2 ML Vial IVP PRN (10:22)
[2019-12-04] MEDS ORDERED: Promethazine HCl 25 MG/ML VIAL SLOW IVP PRN (10:22)
--- NOTE | 2019-12-04 11:20 | OP ---
DATE OF PROCEDURE: 12/04/2019 PREOPERATIVE DIAGNOSIS: End-stage renal disease, desires peritoneal dialysis. POSTOPERATIVE DIAGNOSIS: End-stage renal disease, desires peritoneal dialysis. PROCEDURES PERFORMED: Laparoscopic peritoneal dialysis catheter with omentopexy. About 500 mL of ascites within the liver. Left arm primary fistula, perforating branch antecubital vein, outflow primary cephalic vein by anatomic considerations with secondary outflow basilic vein, retrograde antecubital vein preserved, 3.5-mm coronary dilator. ANESTHESIA: General with local, 0.5% Marcaine, 30 mL mixed with 1% Xylocaine with epinephrine 20 mL, 40 mL volume used. DESCRIPTION OF PROCEDURE: The patient was taken to the operating room, where under general anesthesia, abdomen and left upper extremity were prepared with ChloraPrep and draped in routine fashion. Bilateral far lateral subcostal incision was made. Pneumoperitoneum to 15 mmHg was obtained with a Veress needle, replaced with a 5 port, laparoscope inserted, contralateral 5 port was placed. There was some clear ascites in the abdominal cavity and it was aspirated. The liver appeared to be normal. Laparoscopic peritoneal dialysis was catheter inserted by making a left periumbilical incision. An 8-mm port was placed, directed caudally in the subcutaneous tissue into the rectus sheath penetrated inferiorly in the peritoneum and a peritoneal dialysis catheter was inserted placing the internal cuff in the rectus sheath as the port was removed and the external cuff was placed just beneath the skin exit site, and a counter-incision was made with stab incision, an 11-blade and a [place] dissector placed grasping the peritoneal dialysis catheter and placed an external cuff beneath the skin exit site, and the subcutaneous tissues were approximated with 4-0 Monocryl, skin with subdermal 4-0 Monocryl, and [place] glue applied. The catheter was flushed with heparinized saline solution with 1000 units pf heparin per mL and then capped and then sterile dressings applied. The omentum was thin, but did reach in the pelvis, thus laparoscopic omentopexy performed with transabdominal wall fixation suture of 2-0 Vicryl, GraNee needle. Once this was completed, pneumoperitoneum was evacuated. All instruments were removed. All skin incisions were approximated with subdermal 4-0 Monocryl and [place] glue applied. Incision was made in the proximal volar forearm just below the antecubital fossa and carried down longitudinally through skin and subcutaneous tissue. Antecubital vein was dissected free. The cephalic vein was much larger than expected based on vein mapping. It was dissected free and a perforating branch dissected free. Branches were divided between clips and spatulated over branch point, and there were actually 2 options, and the better larger option chosen, and coronary dilator was used to interrogate this as the patient was given 6000 units of heparin intravenously. cephalic vein outflow from a 2-mm to a 3.5-mm coronary dilator. There was a communication in the basilic vein, although more distal and indirectly in anatomic reasons, the primary outflow was the cephalic vein. The basilic vein seemed to be small. It was preserved. Spatulating end of the perforating branch anastomosed with proximal radial artery after placing vascular clamps on the proximal radial artery distally and the brachial ulnar artery and longitudinal arteriotomy was made. A 2-cm anastomosis was created with continuous suture of 6-0 Prolene completing the anastomosis, releasing the vascular clamps, noting a good Doppler signal throughout the cephalic vein outflow upper arm. The patient tolerated the procedure well. The subcutaneous tissue was approximated with 3-0 Monocryl, skin with subdermal 4-0 Monocryl and [place] glue applied. Job ID: [id number]
[2019-12-04] MEDS: Sevelamer Carbonate 800 MG TAB PO SCH ×3 (11:58→19:06)
[2019-12-04] MEDS: cloNIDine 0.2 MG TAB PO SCH ×2 (11:58→20:05)
[2019-12-04] MEDS: Famotidine/PF 20 mg/2ml Vial SLOW IVP SCH (11:59)
[2019-12-04] MEDS: Nystatin 500,000 UNITS/5 ML UDCUP SSW SCH ×4 (11:59→20:06)
[2019-12-04] MEDS: hydrALAZINE 25 MG TAB PO SCH ×3 (11:59→20:05)
[2019-12-04] MEDS: Calcitriol 0.25 MCG CAP PO SCH (11:59)
[2019-12-04] MEDS ORDERED: Metoclopramide HCl 10 MG/2 ML VIAL ONE (14:43)
[2019-12-04] MEDS ORDERED: Dexamethasone 20 MG/5 ML VIAL ONE (14:43)
[2019-12-04] MEDS ORDERED: Lidocaine 1% PF 5 ML VIAL ONE (14:43)
[2019-12-04] MEDS ORDERED: PROPOFOL 200 MG/20 ML VIAL ONE (14:43)
[2019-12-04] MEDS ORDERED: Rocuronium Bromide 10 MG/ML (10ML VIAL) ONE (14:43)
[2019-12-04] MEDS ORDERED: Ondansetron PF 4 MG/2 ML Vial ONE (14:43)
[2019-12-04] MEDS ORDERED: Glycopyrrolate 0.2 MG/ML 5 ML SYRINGE ONE (14:43)
[2019-12-04] MEDS ORDERED: PHENYLEPHRINE-NS 100 MCG/ML 10 ML SYRINGE ONE (14:43)
[2019-12-04] MEDS ORDERED: Heparin 10,000 UNITS/ 10 ML VIAL ONE (15:07)
--- NOTE | 2019-12-04 15:15 | PDOC.HOSPP ---
- Subjective Encounter Date: 12/04/19 Encounter Time: 15:10 Subjective: Patient seen and examined for ALON. s/p dialysis fistula and PD catheter placement. Underwent dialysis today. Pain controlled. Nausea improving. No new complaints. No overnight events - Objective Vital Signs & Weight: Vital Signs (12 hours) Temp Pulse Resp BP Pulse Ox 12/04/19 03:34 94 L 12/04/19 03:18 97.9 F 89 18 140/65 94 L Weight Weight 152 lb 9.6 oz I&O: 12/03/19 12/04/19 12/05/19 06:59 06:59 06:59 Intake Total 450 720 Output Total 500 200 Balance -50 520 Result Diagrams: 12/04/19 03:25 12/04/19 03:25 Hospitalist ROS - Review of Systems Respiratory: denies: cough, dry, shortness of breath, hemoptysis, SOB with excertion, pleuritic pain, sputum, wheezing, other Cardiovascular: denies: chest pain, palpitations, orthopnea, paroxysmal noc. dyspnea, edema, light headedness, other - Medication Medications: Active Medications Generic Name Dose Route Start Last Admin Trade Name Freq PRN Reason Stop Dose Admin Calcitriol 0.25 mcg 12/03/19 09:00 12/04/19 11:59 Rocaltrol PO Not Given DAILY [facility] Clonidine 0.2 mg 12/01/19 09:00 12/04/19 11:58 Catapres PO Not Given BID [facility] Famotidine 20 mg 12/02/19 09:00 12/04/19 11:59 Pepcid SLOW IVP Not Given DAILY [facility] Hydralazine HCl 75 mg 12/01/19 09:00 12/04/19 11:59 Apresoline PO Not Given TID [facility] Nystatin 500,000 units 12/01/19 17:00 12/04/19 14:03 Mycostatin SSW Not Given QID [facility] Ondansetron HCl 4 mg 12/01/19 10:03 12/02/19 20:26 Zofran SLOW IVP 4 mg Q4H PRN Administration Nausea/Vomiting Sevelamer Carbonate 800 mg 12/03/19 12:00 12/04/19 11:58 Renvela PO Not Given TID-[facility] Sodium Chloride 10 ml 12/01/19 21:00 12/04/19 11:59 Flush - Normal Saline IVF Not Given Q12HR [facility]ORIN - Exam General Appearance: NAD Heart: RRR, no gallops Respiratory: no wheezes, no ronchi Gastrointestinal: soft, normal bowel sounds Extremities: no cyanosis, no edema Hosp A/P - Plan DVT proph w/SCDs -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
--- NOTE | 2019-12-04 17:45 | PRG ---
DATE OF SERVICE: 12/04/2019 SUBJECTIVE: Ms. 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 She has reached ESRD stage from her underlying FSGS. She is tolerating hemodialysis. She underwent PD catheter placement as well as AV fistula placement today. She prefers to do PD. OBJECTIVE: VITAL SIGNS: Blood pressure is 149/70, heart rate 110, respiratory rate 16, temperature 97.6, pulse ox 95%. GENERAL: Sleepy, arousable, comfortable, not in distress. SKIN: Adequate turgor. HEENT: Slightly pale conjunctivae. Anicteric sclerae. NECK: No neck mass. No carotid bruits. No JVD. CHEST: No deformities. LUNGS: Clear breath sounds. HEART: Normal sinus rhythm. No murmurs, gallops, or rubs. ABDOMEN: Globular, soft, nontender. No masses. Positive for PD catheter. EXTREMITIES: No edema. No deformities. Left upper extremity AV fistula positive for bruit. MEDICATIONS: Medications of 12/04/2019 were reviewed. LABORATORY DATA: Laboratories of December 04, 2019, white count 5.4, hemoglobin 8.2, sodium 137, potassium 3.5, chloride 104, carbon dioxide 26, BUN 25, creatinine 4.91, calcium 7.4, phosphorus is 5.4, PTH 236.1. ASSESSMENT AND PLAN: 1. Anemia. We will start the patient on Epogen 7500 units subcu daily. Also add ferrous sulfate 325 mg p.o. once a day. 2. End-stage renal disease/chronic renal failure. Continuing hemodialysis regimen. Tolerated hemodialysis today. My plan is to do a 3-1/2 hour hemodialysis tomorrow. Awaiting outpatient dialysis placement. Once discharged we will start training for peritoneal dialysis. Job ID: [id number] [facility] [place] [facility]
[2019-12-04] MEDS ORDERED: EPOETIN ALFA-EPBX (ESRD) 4,000 UNIT/ML VIAL SC SCH (18:00)
[2019-12-04] MEDS: Acetaminophen 500 MG TAB PO PRN (20:05)
[2019-12-05 04:50] LABS: #Basophils 0.1 thou/uL (0.0-0.2); #Eosinphils 0.1 thou/uL (0.0-0.7); #Lymphocytes 1.3 thou/uL (1.20-3.40); #Monocytes 0.6 thou/uL (0.11-0.59); #Neutrophils 7.1 thou/uL (1.40-6.50); %Basophils 0.6 % (0.0-1.0); %Eosinophils 0.6 % (0.0-10.0); %Lymphocytes 14.3 % (21.0-51.0); %Monocytes 6.9 % (0.0-10.0); %Neutrophils 77.7 % (42.0-75.0); Mean Corpuscular HGB CONC 32.5 g/dL (32.0-36.0); Mean Corpuscular Hemoglobin 30.3 pg (27.0-31.0); Mean Corpuscular Volume 93.2 fL (78.0-98.0); Mean Platelet Volume 7.8 fL (7.4-10.4); Platelet Count 281 thou/uL (130-400); RBC Distribution Width 13.3 % (11.5-14.5); Red Blood Cell (RBC) Count 2.63 mill/uL (4.20-5.40); White Blood Cell (WBC) Count 9.1 thou/uL (4.8-10.8)
[2019-12-05 05:16] LABS: Albumin 2.6 g/dL (3.4-4.8); Anion Gap 13 mmol/L (10-20); BUN (Urea Nitrogen) 16 mg/dL (9.8-20.1); BUN/Creatinine Ratio 4.38; Calc. Creatinine Clearance 16 mL/min (70-130); Calcium 7.4 mg/dL (7.8-10.44); Carbon Dioxide 27 mmol/L (23-31); Chloride 102 mmol/L (98-107); Estimated GFR-MDRD 12; Glucose 100 mg/dL (80-115); Phosphorus 4.2 mg/dL (2.3-4.7); Sodium 138 mmol/L (136-145)
[2019-12-05] MEDS: Nystatin 500,000 UNITS/5 ML UDCUP SSW SCH ×4 (08:54→20:40)
[2019-12-05] MEDS: Calcitriol 0.25 MCG CAP PO SCH (08:54)
[2019-12-05] MEDS: Famotidine/PF 20 mg/2ml Vial SLOW IVP SCH (08:54)
[2019-12-05] MEDS: Ferrous Sulfate 325 MG TAB PO SCH (08:54)
[2019-12-05] MEDS: hydrALAZINE 25 MG TAB PO SCH ×3 (08:54→20:40)
[2019-12-05] MEDS: Sevelamer Carbonate 800 MG TAB PO SCH ×3 (08:54→16:05)
[2019-12-05] MEDS: cloNIDine 0.2 MG TAB PO SCH ×2 (08:55→20:39)
[2019-12-05] MEDS ORDERED: READ PPD TEST SITE PO SCH (10:00)
--- NOTE | 2019-12-05 10:58 | PRG ---
DATE OF SERVICE: 12/05/2019 SUBJECTIVE: Reynaldo is a 64-year-old white female with known history of chronic renal failure from biopsy-proven FSGS. Renal function has worsened over time. She has been initiated on dialysis. She prefers to do PD. For that reason, a PD catheter was placed as well as an AV fistula as a backup. No new complaints today. No chest pain or shortness of breath. OBJECTIVE: VITAL SIGNS: Blood pressure 146/65, heart rate 102, respiratory rate 18, temperature 97.3, and pulse ox 96%. GENERAL: The patient is awake, alert, comfortable, not in distress. SKIN: Adequate turgor. HEENT: Slightly pale conjunctivae. Anicteric sclerae. No neck mass. No carotid bruits. No JVD. CHEST: No deformities. LUNGS: Clear breath sounds. No wheezing. No crackles. HEART: Normal sinus rhythm. No murmur. No gallops. No rubs. ABDOMEN: Soft, nontender. No masses. EXTREMITIES: Trace edema. MEDICATIONS: Medications of December 05, 2019, reviewed. LABORATORY DATA: On December 05, 2019, white count 9.1, hemoglobin 8. Sodium 138, potassium 4, chloride 102, carbon dioxide 27, BUN 16, creatinine 3.65, calcium 7.4, phosphorus 4.2. ASSESSMENT AND PLAN: 1. Chronic renal failure/end-stage renal disease, continuing 0-[id number]-c-week hemodialysis. For today, we will do a 3.5-hour hemodialysis with removal of 1 to 2 L of fluid as tolerated. 2. Secondary hyperparathyroidism, on calcitriol 0.25 mcg tablet daily. 3. Hypertension, stable. Continue current blood pressure medications. 4. Anemia. Continuing weekly Epogen and iron supplementation. We will recheck basic metabolic panel and CBC in a.m. Job ID: [id number]
[2019-12-05] MEDS: Ondansetron PF 4 MG/2 ML Vial SLOW IVP PRN (13:04)
[2019-12-05] MEDS ORDERED: Heparin 10,000 UNITS/ 10 ML VIAL ONE (15:03)
[2019-12-05] MEDS: Acetaminophen 500 MG TAB PO PRN (16:05)
--- NOTE | 2019-12-05 16:22 | PRG ---
DATE OF SERVICE: 12/05/2019 She is doing well today. She is sore, but otherwise doing well. She has good thrill and bruit and left arm fistula. Her hand function is good. Laparoscopic PD catheter. Dressing intact. Abdomen is soft and nontender. She is tolerating regular diet, having some nausea related to her uremia. ASSESSMENT AND PLAN: Status post laparoscopic peritoneal dialysis catheter, omentopexy, and left arm fistula. We would recommend she exercise the left arm. Diet and activity as tolerated. It is imperative that she see the peritoneal dialysis nurse in the next week (3 to 7 days) for changing of her peritoneal dialysis catheter dressing, flushing the catheter and education regarding her peritoneal dialysis catheter. She should excise her left arm. I will see her in the office in 3 to 4 weeks. The patient is stable for discharge per Medical, and I will see her as needed this hospitalization. Job ID: [id number]
--- NOTE | 2019-12-05 17:03 | PDOC.HOSPP ---
- Subjective Encounter Date: 12/05/19 Encounter Time: 14:00 Subjective: pt up in bed nauseated, she is also requiring oxygen. - Objective Vital Signs & Weight: Vital Signs (12 hours) Temp Pulse Resp BP BP BP Pulse Ox 12/05/19 15:15 97.6 F 118 H 19 180/77 H 96 12/05/19 08:55 146/65 H 12/05/19 08:54 102 H 146/65 H 12/05/19 07:48 97.3 F L 102 H 18 146/65 H 96 Weight Weight 144 lb 13.499 oz I&O: 12/04/19 12/05/19 12/06/19 06:59 06:59 06:59 Intake Total 720 265 Output Total 200 Balance 520 265 Result Diagrams: 12/05/19 04:30 12/05/19 03:30 Hospitalist ROS - Review of Systems Cardiovascular: denies: chest pain, palpitations, orthopnea, paroxysmal noc. dyspnea, edema, light headedness, other Gastrointestinal: reports: nausea. denies: vomiting, abdominal pain, diarrhea, constipation, melena, hematochezia, other Genitourinary: denies: dysuria, frequency, incontinence, hematuria, retention, other - Medication Medications: Active Medications Generic Name Dose Route Start Last Admin Trade Name Freq PRN Reason Stop Dose Admin Acetaminophen 1,000 mg 12/02/19 13:34 12/05/19 16:05 Tylenol PO 1,000 mg Q6H PRN Administration Mild-Moderate Pain (1-5) Calcitriol 0.25 mcg 12/03/19 09:00 12/05/19 08:54 Rocaltrol PO 0.25 mcg DAILY [facility] Administration Clonidine 0.2 mg 12/01/19 09:00 12/05/19 08:55 Catapres PO 0.2 mg BID [facility] Administration Epoetin Naresh-epbx 7,500 unit 12/04/19 18:00 12/04/19 18:27 Retacrit SC 7,500 unit Q7D [facility] Administration Famotidine 20 mg 12/02/19 09:00 12/05/19 08:54 Pepcid SLOW IVP 20 mg DAILY [facility] Administration Ferrous Sulfate 325 mg 12/05/19 08:00 12/05/19 08:54 Feosol PO 325 mg QAM-WM [facility] Administration Hydralazine HCl 75 mg 12/01/19 09:00 12/05/19 16:05 Apresoline PO 75 mg TID [facility] Administration Nystatin 500,000 units 12/01/19 17:00 12/05/19 16:03 Mycostatin SSW Not Given QID [facility] Ondansetron HCl 4 mg 12/01/19 10:03 12/05/19 13:04 Zofran SLOW IVP 4 mg Q4H PRN Administration Nausea/Vomiting Sevelamer Carbonate 800 mg 12/03/19 12:00 12/05/19 16:05 Renvela PO 800 mg TID-WM [facility] Administration Sodium Chloride 10 ml 12/01/19 21:00 12/05/19 08:55 Flush - Normal Saline IVF 10 ml Q12HR [facility] Administration - Exam Neck: negative: supple, symmetric, no JVD, no thyromegaly, no lymphadenopathy, no carotid bruit, JVD Heart: negative: RRR, no murmur, no gallops, no rubs, normal peripheral pulses, irregular, diminshed peripheral pulses, murmur present, II/IV, III/IV Respiratory: negative: CTAB, no wheezes, no rales, no ronchi, normal chest expansion, no tachypnea, normal percussion, rales, rhonchi, tachypneic, wheezes Gastrointestinal: negative: soft, non-tender, non-distended, normal bowel sounds , no palpable masses, no hepatomegaly, no splenomegaly, no bruit, no guarding, no rigidity, tender to palpation, distended, diminished bowl sounds, voluntary guarding Hosp A/P (1) Nausea & vomiting Code(s): R11.2 - NAUSEA WITH VOMITING, UNSPECIFIED Status: Acute (2) Oral candidiasis Code(s): B37.0 - CANDIDAL STOMATITIS Status: Acute (3) Acute kidney injury superimposed on CKD Code(s): N17.9 - ACUTE KIDNEY FAILURE, UNSPECIFIED; N18.9 - CHRONIC KIDNEY DISEASE, UNSPECIFIED Status: Acute (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 she is nauseated will also order zofran prn. she is suppose to have a EGD if negative possible a HIDA scan. I believe her nausea is form uremia. however it is reasonable to rule out other etiology. renal ultrasound ordered. pt states she was on steroids. No steroids are noted on her med list. 12/02 pt appears dehydrated, she has been nauseated and has not been eating or drinking much. will give her iv fluids 500ml. I went back to see the pt around 1809 and her tachycardia had improved and the dialysis nurse stated that she will not remove any fluid. 12/03 pt appears well, feels well no more nausea. she has been encouraged to drink. will monitor. egd no acute findings. 12/05 pt is now on oxygen, will get cxr. 2L was removed today. she is a bit nauseated. ? mild dehydration.
--- NOTE | 2019-12-05 17:40 | RAD ---
Chest AP view INDICATION: Shortness of breath COMPARISON: December 02, 2019 FINDINGS: Lungs:Persistent bibasilar atelectasis Cardiac silhouette:The cardiomediastinal silhouette appears within normal limits. Pulmonary vasculature:Mildly prominent but stable Pleural spaces:Small moderate bilateral pleural effusions persist Upper abdomen:No abnormality seen. Osseous structures: No acute osseous abnormality. Additional findings:Right IJ dialysis catheter and left IJ central venous catheter are unchanged. IMPRESSION: Stable exam.
[2019-12-05] MEDS: Promethazine HCl 25 MG/ML VIAL IM/IV PRN (18:18)
[2019-12-06 04:16] LABS: #Eosinphils 0.1 thou/uL (0.0-0.7); #Lymphocytes 1.4 thou/uL (1.20-3.40); #Monocytes 0.5 thou/uL (0.11-0.59); #Neutrophils 10.8 thou/uL (1.40-6.50); %Basophils 0.1 % (0.0-1.0); %Eosinophils 0.6 % (0.0-10.0); %Lymphocytes 10.7 % (21.0-51.0); %Monocytes 4.1 % (0.0-10.0); %Neutrophils 84.5 % (42.0-75.0); Hemoglobin 7.4 g/dL (12.0-16.0); Mean Corpuscular HGB CONC 32.6 g/dL (32.0-36.0); Mean Corpuscular Hemoglobin 30.6 pg (27.0-31.0); Mean Platelet Volume 7.6 fL (7.4-10.4); Platelet Count 228 thou/uL (130-400); RBC Distribution Width 13.3 % (11.5-14.5); White Blood Cell (WBC) Count 12.8 thou/uL (4.8-10.8)
[2019-12-06 04:35] LABS: Anion Gap 10 mmol/L (10-20); BUN (Urea Nitrogen) 10 mg/dL (9.8-20.1); Calc. Creatinine Clearance 21 mL/min (70-130); Calcium 7.1 mg/dL (7.8-10.44); Carbon Dioxide 29 mmol/L (23-31); Chloride 102 mmol/L (98-107); Estimated GFR-MDRD 17; Glucose 93 mg/dL (80-115); Potassium 3.6 mmol/L (3.5-5.1); Sodium 137 mmol/L (136-145)
[2019-12-06] MEDS: Nystatin 500,000 UNITS/5 ML UDCUP SSW SCH ×4 (08:48→21:04)
[2019-12-06] MEDS: Sevelamer Carbonate 800 MG TAB PO SCH ×3 (08:49→16:41)
[2019-12-06] MEDS: Ferrous Sulfate 325 MG TAB PO SCH (08:49)
[2019-12-06] MEDS: Calcitriol 0.25 MCG CAP PO SCH (08:49)
[2019-12-06] MEDS: cloNIDine 0.2 MG TAB PO SCH ×2 (08:49→21:04)
[2019-12-06] MEDS: hydrALAZINE 25 MG TAB PO SCH ×3 (08:49→21:04)
[2019-12-06] MEDS: Famotidine/PF 20 mg/2ml Vial SLOW IVP SCH (08:49)
--- NOTE | 2019-12-06 11:45 | PRG ---
DATE OF SERVICE: 12/06/2019 SUBJECTIVE: Ms. Jacobs is a 64-year-old white female, who was admitted for worsening renal dysfunction. She was initiated on dialysis. Attempt to volume replete it was not successful and no improvement of the renal function. I feel that her chronic renal failure from FSGS has progressed to ESRD. We have initiated dialysis. She has received daily dialysis in the last several days. She also had a PD catheter placed. No new complaints today except for decreased appetite. Still with occasional nausea. OBJECTIVE: VITAL SIGNS: Blood pressure is 157/73, heart rate 110, respiratory rate 18, temperature 98, pulse ox 98%. GENERAL: Noted to be awake, alert, comfortable, not in distress. SKIN: Adequate turgor. HEENT: She has a slightly pale conjunctivae. Anicteric sclerae. No neck mass. No carotid bruits. No JVD. CHEST: No deformities. LUNGS: Clear breath sounds. HEART: Normal sinus rhythm. No murmur. No gallops. No rubs. ABDOMEN: Globular, soft, nontender. No masses. Positive for PD catheter. EXTREMITIES: Trace edema. MEDICATIONS: Medications of December 06, 2019 was reviewed. LABORATORY DATA: Laboratories of December 06, 2019, white count 7.4 sodium 137, potassium 3.6, chloride 102, carbon dioxide 29, BUN 10, creatinine 2.78, glucose 93, calcium 7.1, albumin is 2.6, PTH 236. Medications of December 06, 2019 was reviewed. ASSESSMENT AND PLAN: 1. End-stage renal disease/chronic renal failure, continuing 3 times a week hemodialysis. Once the patient is discharged to outpatient, we will start training her for peritoneal dialysis. No indication for any emergent dialysis today. 2. Anemia. Continuing iron supplementation and Epogen. 3. Hypertension. Continue current blood pressure medications. 4. Renal osteodystrophy-patient is started on phosphate binder as well as calcitriol. Overall, prognosis remains guarded. Agree with current management. Recheck basic metabolic profile, CBC in a.m. Job ID: [id number]
--- NOTE | 2019-12-06 14:35 | PDOC.HOSPP ---
- Subjective Subjective: Seen and examined on the medical unit telemetry. Follow up on renal failure requiring hemodialysis. Patient states that she has been nausea since Thanksgiving when her renal function starter worsening. It is improved with oral and IV medications though she still has difficulty keeping her food down and has not much of an appetite. Family at bedside, time was given for questions , all answered in detail. Pending outpatient hemodialysis chair to be set up. - Objective Vital Signs & Weight: Vital Signs (12 hours) Temp Pulse Resp BP BP Pulse Ox 12/06/19 11:15 98.3 F 108 H 16 140/67 96 12/06/19 08:35 98 F 110 H 18 157/73 H 98 12/06/19 03:44 98.2 F 98 18 123/60 95 Weight Weight 131 lb 13.383 oz I&O: 12/05/19 12/06/19 12/07/19 06:59 06:59 06:59 Intake Total 265 650 Output Total 2100 Balance 265 -1450 Result Diagrams: 12/06/19 04:00 12/06/19 04:00 Radiology Reviewed by me: Yes Hospitalist ROS - Review of Systems All other systems reviewed; all pertinent +/- noted in HPI/Subj - Medication Medications: Active Medications Generic Name Dose Route Start Last Admin Trade Name Freq PRN Reason Stop Dose Admin Acetaminophen 1,000 mg 12/02/19 13:34 12/05/19 16:05 Tylenol PO 1,000 mg Q6H PRN Administration Mild-Moderate Pain (1-5) Calcitriol 0.25 mcg 12/03/19 09:00 12/06/19 08:49 Rocaltrol PO 0.25 mcg DAILY [facility] Administration Clonidine 0.2 mg 12/01/19 09:00 12/06/19 08:49 Catapres PO 0.2 mg BID [facility] Administration Epoetin Naresh-epbx 7,500 unit 12/04/19 18:00 12/04/19 18:27 Retacrit SC 7,500 unit Q7D [facility] Administration Famotidine 20 mg 12/02/19 09:00 12/06/19 08:49 Pepcid SLOW IVP 20 mg DAILY [facility] Administration Ferrous Sulfate 325 mg 12/05/19 08:00 12/06/19 08:49 Feosol PO 325 mg QAM-WM [facility] Administration Hydralazine HCl 75 mg 12/01/19 09:00 12/06/19 08:49 Apresoline PO 75 mg TID [facility] Administration Nystatin 500,000 units 12/01/19 17:00 12/06/19 12:18 Mycostatin SSW 500,000 units QID [facility] Administration Ondansetron HCl 4 mg 12/01/19 10:03 12/05/19 13:04 Zofran SLOW IVP 4 mg Q4H PRN Administration Nausea/Vomiting Promethazine HCl 12.5 mg 12/02/19 17:26 12/05/19 18:18 Phenergan IM/IV 12.5 mg Q6H PRN Administration Nausea/Vomiting Sevelamer Carbonate 800 mg 12/03/19 12:00 12/06/19 12:17 Renvela PO 800 mg TID-WM [facility] Administration Sodium Chloride 10 ml 12/01/19 21:00 12/06/19 08:50 Flush - Normal Saline IVF 10 ml Q12HR [facility]IN Administration - Exam General Appearance: NAD, awake alert Eye: PERRL ENT: normocephalic atraumatic, moist mucosa Neck: supple, symmetric, no lymphadenopathy Heart: no murmur, no gallops, no rubs Respiratory: CTAB, no wheezes, no rales, no ronchi, normal chest expansion Gastrointestinal: soft, non-tender, non-distended, no guarding, no rigidity Extremities: 1+ LE edema Skin: no lesions, no rashes Neurological: cranial nerve grossly intact, no focal deficits Musculoskeletal: generalized weakness Psychiatric: normal affect, normal behavior, A&O x 3 Hosp A/P (1) Nausea & vomiting Code(s): R11.2 - NAUSEA WITH VOMITING, UNSPECIFIED Status: Acute (2) Acute kidney injury superimposed on CKD Code(s): N17.9 - ACUTE KIDNEY FAILURE, UNSPECIFIED; N18.9 - CHRONIC KIDNEY DISEASE, UNSPECIFIED Status: Acute (3) Postoperative anemia due to acute blood loss Code(s): D62 - ACUTE POSTHEMORRHAGIC ANEMIA Status: Acute (4) Focal segmental glomerulosclerosis Code(s): N05.1 - UNSP NEPH SYNDROME W FOCAL AND SEGMENTAL GLOMERULAR LESIONS Status: Chronic (5) Hypertension Code(s): I10 - ESSENTIAL (PRIMARY) HYPERTENSION Status: Chronic - Plan Plan: medical unit telemetry nephrology consultation, recommendations appreciate next and gastroenterology consultation, recommendations appreciated hemodialysis per nephrology patient will require outpatient hemodialysis chair to be set up prior to discharge nausea and vomiting seem to have been improving with hemodialysis and symptoms are likely secondary to uremia symptomatic therapy for nausea and vomiting as needed continue other home medications as able blood pressure control blood sugar control G.I. prophylaxis DVT prophylaxis
[2019-12-07 04:23] LABS: #Eosinphils 0.2 thou/uL (0.0-0.7); #Lymphocytes 1.3 thou/uL (1.20-3.40); #Monocytes 0.6 thou/uL (0.11-0.59); #Neutrophils 10.7 thou/uL (1.40-6.50); %Basophils 0.2 % (0.0-1.0); %Eosinophils 1.5 % (0.0-10.0); %Lymphocytes 9.8 % (21.0-51.0); %Monocytes 4.6 % (0.0-10.0); %Neutrophils 83.9 % (42.0-75.0); Hemoglobin 7.1 g/dL (12.0-16.0); Mean Corpuscular HGB CONC 32.1 g/dL (32.0-36.0); Mean Corpuscular Hemoglobin 30.2 pg (27.0-31.0); Mean Corpuscular Volume 94.2 fL (78.0-98.0); Mean Platelet Volume 7.5 fL (7.4-10.4); Platelet Count 202 thou/uL (130-400); RBC Distribution Width 13.3 % (11.5-14.5); Red Blood Cell (RBC) Count 2.34 mill/uL (4.20-5.40); White Blood Cell (WBC) Count 12.8 thou/uL (4.8-10.8)
[2019-12-07 04:48] LABS: Anion Gap 9 mmol/L (10-20); BUN (Urea Nitrogen) 19 mg/dL (9.8-20.1); Calc. Creatinine Clearance 12 mL/min (70-130); Calcium 7.3 mg/dL (7.8-10.44); Carbon Dioxide 29 mmol/L (23-31); Chloride 100 mmol/L (98-107); Estimated GFR-MDRD 10; Glucose 105 mg/dL (80-115); Potassium 3.7 mmol/L (3.5-5.1); Sodium 134 mmol/L (136-145)
--- NOTE | 2019-12-07 07:04 | PRG ---
DATE OF SERVICE: 12/07/2019 SERVICE: Renal Medicine. SUBJECTIVE: Ms. Jacobs is a 64-year-old white female with history of chronic renal failure/ESRD, secondary to biopsy-proven FSGS. She was admitted due to persistent nausea. She eventually was found to have progressive renal dysfunction and has been initiated on dialysis. This morning, she is feeling better. She denies any chest pain or shortness of breath. She still has some decreased p.o. intake. OBJECTIVE: VITAL SIGNS: Blood pressure 124/59, heart rate 89, respiratory rate 16, temperature 98.2, pulse ox 97%. GENERAL: Noted to be awake, alert, supine, comfortable, not in distress. SKIN: Adequate turgor. HEENT: She has a slightly pale conjunctivae. Anicteric sclerae. NECK: No neck mass. No carotid bruits. No JVD. CHEST: No deformities. LUNGS: Clear breath sounds. No wheezing. No crackles. HEART: Normal sinus rhythm. No murmur, no gallops, no rubs. ABDOMEN: Globular, soft, nontender. No masses. EXTREMITIES: No edema. No deformities. MEDICATIONS: Medications of December 07, 2019, were reviewed. LABORATORY DATA: Laboratories of December 07, 2019; white count 12.8, hemoglobin 7.1, hematocrit 22. Sodium 134, potassium 3.7, chloride 100, carbon dioxide 29, BUN 19, creatinine 4.41, calcium 7.3. Albumin is 2.6. ASSESSMENT AND PLAN: 1. Hypoalbuminemia. Start Nepro 1 can p.o. b.i.d. 2. Chronic renal failure/end-stage renal disease. Continuing 3 times hemodialysis regimen. The patient is status post peritoneal dialysis catheter. She will eventually be trained for peritoneal dialysis. 3. Anemia. Continuing weekly Epogen and iron supplementation. P.r.n. blood transfusion. 4. Hypertension. Continue current BP medications. 5. Awaiting outpatient dialysis placement. Job ID: [id number]
[2019-12-07] MEDS: hydrALAZINE 25 MG TAB PO SCH ×3 (08:22→20:07)
[2019-12-07] MEDS: Calcitriol 0.25 MCG CAP PO SCH (08:22)
[2019-12-07] MEDS: Nystatin 500,000 UNITS/5 ML UDCUP SSW SCH ×4 (08:22→20:08)
[2019-12-07] MEDS: Sevelamer Carbonate 800 MG TAB PO SCH ×3 (08:23→16:14)
[2019-12-07] MEDS: cloNIDine 0.2 MG TAB PO SCH ×2 (08:23→20:07)
[2019-12-07] MEDS: Famotidine/PF 20 mg/2ml Vial SLOW IVP SCH (08:23)
[2019-12-07] MEDS: Ferrous Sulfate 325 MG TAB PO SCH (08:23)
[2019-12-07] MEDS ORDERED: traMADol HCl 50 MG TAB PO PRN (10:13)
[2019-12-07] MEDS ORDERED: cloNIDine 0.1 MG TAB PO PRN (21:40)
--- NOTE | 2019-12-07 21:43 | PDOC.HOSPP ---
- Subjective Encounter Date: 12/07/19 Encounter Time: 10:30 Subjective: Patient seen and examined for ALON. Tolerating dialysis. No new complaints. No overnight events - Objective Vital Signs & Weight: Vital Signs (12 hours) Temp Pulse Resp BP BP Pulse Ox 12/07/19 20:07 88 188/77 H 12/07/19 19:57 98.5 F 88 24 H 188/77 H 95 12/07/19 16:54 98.6 F 89 18 144/67 H 90 L 12/07/19 15:00 98.5 F 16 156/70 H 92 L 12/07/19 14:56 80 156/70 H 12/07/19 11:21 98.0 F 86 15 143/65 H 95 Weight Weight 133 lb 9.602 oz I&O: 12/06/19 12/07/19 12/08/19 06:59 06:59 06:59 Intake Total 650 970 500 Output Total 2100 120 0 Balance -1450 850 500 Result Diagrams: 12/07/19 04:14 12/07/19 04:14 EKG Reviewed by me: Yes (Tele SR) Hospitalist ROS - Review of Systems Respiratory: denies: cough, dry, shortness of breath, hemoptysis, SOB with excertion, pleuritic pain, sputum, wheezing, other Cardiovascular: denies: chest pain, palpitations, orthopnea, paroxysmal noc. dyspnea, edema, light headedness, other Gastrointestinal: denies: nausea, vomiting, abdominal pain, diarrhea, constipation, melena, hematochezia, other - Medication Medications: Active Medications Generic Name Dose Route Start Last Admin Trade Name Vladq PRN Reason Stop Dose Admin Acetaminophen 1,000 mg 12/02/19 13:34 12/05/19 16:05 Tylenol PO 1,000 mg Q6H PRN Administration Mild-Moderate Pain (1-5) Calcitriol 0.25 mcg 12/03/19 09:00 12/07/19 08:22 Rocaltrol PO 0.25 mcg DAILY [facility] Administration Clonidine 0.2 mg 12/01/19 09:00 12/07/19 20:07 Catapres PO 0.2 mg BID [facility] Administration Epoetin Naresh-epbx 7,500 unit 12/04/19 18:00 12/04/19 18:27 Retacrit SC 7,500 unit Q7D [facility] Administration Ferrous Sulfate 325 mg 12/05/19 08:00 12/07/19 08:23 Feosol PO 325 mg QAM-WM [facility] Administration Hydralazine HCl 75 mg 12/01/19 09:00 12/07/19 20:07 Apresoline PO 75 mg TID [facility] Administration Nystatin 500,000 units 12/01/19 17:00 12/07/19 20:08 Mycostatin SSW 500,000 units QID [facility] Administration Ondansetron HCl 4 mg 12/01/19 10:03 12/05/19 13:04 Zofran SLOW IVP 4 mg Q4H PRN Administration Nausea/Vomiting Promethazine HCl 12.5 mg 12/02/19 17:26 12/05/19 18:18 Phenergan IM/IV 12.5 mg Q6H PRN Administration Nausea/Vomiting Sevelamer Carbonate 800 mg 12/03/19 12:00 12/07/19 16:14 Renvela PO 800 mg TID-WM [facility]IN Administration Sodium Chloride 10 ml 12/01/19 21:00 12/07/19 20:09 Flush - Normal Saline IVF 10 ml Q12HR [facility] Administration - Exam General Appearance: NAD Neck: supple, no JVD Heart: RRR, no gallops Respiratory: CTAB, no rales Gastrointestinal: soft, non-distended, normal bowel sounds Extremities: no edema Hosp A/P - Plan DVT proph w/SCDs -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
[2019-12-08 05:51] LABS: #Eosinphils 0.2 thou/uL (0.0-0.7); #Lymphocytes 1.2 thou/uL (1.20-3.40); #Monocytes 0.6 thou/uL (0.11-0.59); #Neutrophils 10.5 thou/uL (1.40-6.50); %Basophils 0.4 % (0.0-1.0); %Eosinophils 1.9 % (0.0-10.0); %Lymphocytes 9.4 % (21.0-51.0); %Monocytes 4.5 % (0.0-10.0); %Neutrophils 83.8 % (42.0-75.0); Hemoglobin 7.2 g/dL (12.0-16.0); Mean Corpuscular HGB CONC 30.6 g/dL (32.0-36.0); Mean Corpuscular Volume 94.7 fL (78.0-98.0); Mean Platelet Volume 7.8 fL (7.4-10.4); Platelet Count 247 thou/uL (130-400); RBC Distribution Width 13.2 % (11.5-14.5); Red Blood Cell (RBC) Count 2.47 mill/uL (4.20-5.40); White Blood Cell (WBC) Count 12.5 thou/uL (4.8-10.8)
[2019-12-08] MEDS: Promethazine HCl 25 MG/ML VIAL IM/IV PRN (05:54)
[2019-12-08 06:04] LABS: Anion Gap 11 mmol/L (10-20); BUN (Urea Nitrogen) 28 mg/dL (9.8-20.1); Calc. Creatinine Clearance 9 mL/min (70-130); Calcium 7.5 mg/dL (7.8-10.44); Carbon Dioxide 29 mmol/L (23-31); Chloride 99 mmol/L (98-107); Estimated GFR-MDRD 8; Glucose 104 mg/dL (80-115); Sodium 135 mmol/L (136-145)
--- NOTE | 2019-12-08 08:15 | PRG ---
DATE OF SERVICE: 12/08/2019 SUBJECTIVE: Ms. Jacobs is a 64-year-old white female, who was admitted for worsening renal dysfunction. She has a progressive renal dysfunction secondary to her underlying biopsy-proven FSGS. She was initially on dialysis. In the last 2 days, she has been feeling tired. I did review her hemoglobin was 7.2. My plan is to give her 1 unit of packed RBC with dialysis. Her appetite is still decreased. No complaints of chest pain or shortness of breath. OBJECTIVE: VITAL SIGNS: Blood pressure 157/73, heart rate 90, respiratory rate 18, temperature 98.4, and pulse ox 92%. GENERAL: Noted to be awake, alert, and comfortable, not in distress. SKIN: Adequate turgor. HEENT: The patient has pale conjunctivae. Anicteric sclerae. NECK: No neck mass. No carotid bruits. No JVD. CHEST: No deformities. LUNGS: Clear breath sounds. HEART: Normal sinus rhythm. No murmur. No gallops. No rubs. ABDOMEN: Globular, soft, and nontender. No masses. Positive for PD catheter. EXTREMITIES: No edema. No deformities. MEDICATIONS: Medications of December 08, 2019 were reviewed. LABORATORY DATA: Laboratories of December 08, 2019; white count 12.5, hemoglobin 7.2. Sodium 135, potassium 4, chloride 99, carbon dioxide 29, BUN 28, creatinine 5.67, and calcium 7.5. ASSESSMENT AND PLAN: 1. Anemia. Continuing weekly Epogen and iron supplementation. We will give 1 unit of packed RBC today. 2. End-stage renal disease/chronic renal failure. Continue 3 times a week hemodialysis. Fluid removal only as tolerated. As previously mentioned, we will start training for peritoneal dialysis once the patient is discharged. We are awaiting outpatient dialysis placement. 3. Flat affect/depression-start Zoloft at 50 mg tablet daily. 4. Hypertension, stable. Continue current BP medications. 5. Agree with current management. Job ID: [id number]
[2019-12-08] MEDS: Sevelamer Carbonate 800 MG TAB PO SCH ×4 (08:37→19:21)
[2019-12-08] MEDS: Ferrous Sulfate 325 MG TAB PO SCH (08:39)
[2019-12-08] MEDS: cloNIDine 0.2 MG TAB PO SCH ×2 (08:39→20:24)
[2019-12-08] MEDS: hydrALAZINE 25 MG TAB PO SCH ×3 (08:39→20:25)
[2019-12-08] MEDS: Calcitriol 0.25 MCG CAP PO SCH (08:40)
[2019-12-08] MEDS: Nystatin 500,000 UNITS/5 ML UDCUP SSW SCH ×4 (08:40→20:27)
[2019-12-08] MEDS ORDERED: Famotidine 20 MG TAB PO SCH (09:00)
[2019-12-08] MEDS ORDERED: Senokot 8.6 MG TAB PO PRN (10:26)
--- NOTE | 2019-12-08 10:29 | PDOC.HOSPP ---
- Subjective Encounter Date: 12/08/19 Encounter Time: 10:26 Subjective: Patient seen and examined during dialysis. No CP/SOB/N/V. Appetite improving. No new complaints. No overnight events - Objective Vital Signs & Weight: Vital Signs (12 hours) Temp Pulse Resp BP BP Pulse Ox 12/08/19 08:39 91 155/87 H 12/08/19 07:24 92 L 12/08/19 07:19 98.4 F 90 18 157/73 H 92 L 12/08/19 04:00 99.3 F 92 16 155/68 H 95 12/08/19 00:00 99.2 F 93 18 154/70 H 95 Weight Weight 133 lb 9.602 oz I&O: 12/07/19 12/08/19 12/09/19 06:59 06:59 06:59 Intake Total 970 620 0 Output Total 120 0 Balance 850 620 0 Result Diagrams: 12/08/19 05:36 12/08/19 05:36 Hospitalist ROS - Review of Systems Respiratory: denies: cough, dry, shortness of breath, hemoptysis, SOB with excertion, pleuritic pain, sputum, wheezing, other Cardiovascular: denies: chest pain, palpitations, orthopnea, paroxysmal noc. dyspnea, edema, light headedness, other - Medication Medications: Active Medications Generic Name Dose Route Start Last Admin Trade Name Freq PRN Reason Stop Dose Admin Acetaminophen 1,000 mg 12/02/19 13:34 12/05/19 16:05 Tylenol PO 1,000 mg Q6H PRN Administration Mild-Moderate Pain (1-5) Calcitriol 0.25 mcg 12/03/19 09:00 12/08/19 08:40 Rocaltrol PO 0.25 mcg DAILY SORIN Administration Clonidine 0.2 mg 12/01/19 09:00 12/08/19 08:39 Catapres PO Not Given BID SORIN Epoetin Naresh-epbx 7,500 unit 12/04/19 18:00 12/04/19 18:27 Retacrit SC 7,500 unit Q7D SORIN Administration Famotidine 20 mg 12/08/19 09:00 12/08/19 08:37 Pepcid PO 20 mg DAILY SORIN Administration Ferrous Sulfate 325 mg 12/05/19 08:00 01/14/20 08:39 Feosol PO 325 mg QAM-WM SORIN Administration Hydralazine HCl 75 mg 12/01/19 09:00 12/08/19 08:39 Apresoline PO 75 mg TID SORIN Administration Nystatin 500,000 units 12/01/19 17:00 12/08/19 08:40 Mycostatin SSW Not Given QID SORIN Ondansetron HCl 4 mg 12/01/19 10:03 12/05/19 13:04 Zofran SLOW IVP 4 mg Q4H PRN Administration Nausea/Vomiting Promethazine HCl 12.5 mg 12/02/19 17:26 12/08/19 05:54 Phenergan IM/IV 12.5 mg Q6H PRN Administration Nausea/Vomiting Sertraline HCl 50 mg 12/08/19 09:00 12/08/19 08:38 Zoloft PO Not Given DAILY SORIN Sevelamer Carbonate 800 mg 12/03/19 12:00 12/08/19 08:37 Renvela PO 800 mg TID-WM SORIN Administration Sodium Chloride 10 ml 12/01/19 21:00 12/08/19 08:40 Flush - Normal Saline IVF 10 ml Q12HR SORIN Administration - Exam General Appearance: NAD Heart: RRR, no gallops Respiratory: CTAB, no rales Gastrointestinal: soft, non-tender, normal bowel sounds Extremities: no cyanosis Hosp A/P - Plan DVT proph w/SCDs -ALON on CKD 3 due to FSGN-Nephrotic syndrome/ESRD Started on dialysis s/p hemosplit 12/02 s/p PD access and left arm fistula 12/04 - Chronic nausea - due to Uremia - improving s/p EGD 12/02 - Hiatal hernia - Secondary Hyperparathyroidism Cont Calcitriol/Renvela - Anemia due to CKD receiving 1 unit PRBC -Metabolic acidosis due to ALON - improving - Oral candidiasis Cont Nystatin SSP -HTN Cont Clonidine and Hydralazine Cont PRN HTN mes - h/o Cervical myelopathy - Hyponatremia - Depression Started on Zoloft today. Denies any suicidal ideation - Constipation Add Miralax -DC planning Await home dialysis setup Will DC Central line at dc Stable for discharge
[2019-12-08] MEDS ORDERED: Heparin 10,000 UNITS/ 10 ML VIAL ONE (13:13)
[2019-12-08] MEDS: Ondansetron PF 4 MG/2 ML Vial SLOW IVP PRN (15:52)
[2019-12-08] MEDS ORDERED: Polyethylene Glycol 3350 17 GM Packet PO SCH (16:00)
[2019-12-08] MEDS ORDERED: Calcium Carbonate 500 MG ChewTAB PO PRN (17:05)
[2019-12-08] MEDS ORDERED: Pantoprazole 40 MG VIAL IVP SCH (17:15)
[2019-12-08] MEDS ORDERED: Promethazine HCl 12.5 MG in Sodium Chloride 0.9% 50 ML IVPB PRN (18:51)
[2019-12-09 04:23] LABS: #Eosinphils 0.2 thou/uL (0.0-0.7); #Lymphocytes 1.2 thou/uL (1.20-3.40); #Monocytes 0.7 thou/uL (0.11-0.59); #Neutrophils 7.8 thou/uL (1.40-6.50); %Basophils 0.1 % (0.0-1.0); %Eosinophils 1.9 % (0.0-10.0); %Lymphocytes 12.1 % (21.0-51.0); %Monocytes 7.1 % (0.0-10.0); %Neutrophils 78.9 % (42.0-75.0); Hemoglobin 8.4 g/dL (12.0-16.0); Mean Corpuscular HGB CONC 33.2 g/dL (32.0-36.0); Mean Corpuscular Hemoglobin 30.9 pg (27.0-31.0); Mean Corpuscular Volume 93.3 fL (78.0-98.0); Mean Platelet Volume 7.6 fL (7.4-10.4); Platelet Count 232 thou/uL (130-400); RBC Distribution Width 13.3 % (11.5-14.5); White Blood Cell (WBC) Count 9.8 thou/uL (4.8-10.8)
[2019-12-09 04:42] LABS: Anion Gap 10 mmol/L (10-20); BUN (Urea Nitrogen) 16 mg/dL (9.8-20.1); Calc. Creatinine Clearance 14 mL/min (70-130); Calcium 7.5 mg/dL (7.8-10.44); Carbon Dioxide 30 mmol/L (23-31); Chloride 100 mmol/L (98-107); Estimated GFR-MDRD 12; Glucose 112 mg/dL (80-115); Potassium 3.4 mmol/L (3.5-5.1); Sodium 137 mmol/L (136-145)
[2019-12-09] MEDS: Ferrous Sulfate 325 MG TAB PO SCH (07:59)
[2019-12-09] MEDS: Sevelamer Carbonate 800 MG TAB PO SCH ×3 (08:00→17:24)
[2019-12-09] MEDS: hydrALAZINE 25 MG TAB PO SCH ×3 (08:01→20:18)
[2019-12-09] MEDS: Calcitriol 0.25 MCG CAP PO SCH (08:01)
[2019-12-09] MEDS: cloNIDine 0.2 MG TAB PO SCH ×2 (08:01→20:19)
[2019-12-09] MEDS: Polyethylene Glycol 3350 17 GM Packet PO SCH (08:02)
[2019-12-09] MEDS: Nystatin 500,000 UNITS/5 ML UDCUP SSW SCH ×4 (08:05→20:29)
--- NOTE | 2019-12-09 08:45 | PRG ---
DATE OF SERVICE: 12/09/2019 SUBJECTIVE: Ms. Jacobs is a 64-year-old white female, who was admitted for her acute kidney injury on top of her chronic renal failure. She has progressive renal dysfunction secondary to her biopsy-proven FSGS. Hemodialysis plan has been initiated. She continues to have persistent nausea. Phenergan has been given and Zofran as well, which seems to be helping. In addition, she received 1 unit of packed RBC with dialysis yesterday. She is wanting to go home. No chest pain or shortness of breath. OBJECTIVE: VITAL SIGNS: Blood pressure is 160/72, heart rate 90, respiratory rate 14, temperature 98.6, and pulse ox 94%. GENERAL: Noted to be awake, alert, comfortable, not in distress. SKIN: Adequate turgor. HEENT: She has pinkish conjunctivae. Anicteric sclerae. NECK: No neck mass. No carotid bruits. No JVD. CHEST: No deformities. LUNGS: Clear breath sounds. No wheezing. No crackles. HEART: Normal sinus rhythm. No murmur. No gallops. No rubs. ABDOMEN: Globular, soft, nontender, no masses. EXTREMITIES: No edema. No deformities. MEDICATIONS: Medications of December 09, 2019, reviewed. LABORATORY DATA: Laboratories December 09, 2019: White count 9.8, hemoglobin 8.4, sodium 137, potassium 3.4, chloride 100, carbon dioxide 30, BUN 16, creatinine 3.81, glucose 112, calcium 7.1. ASSESSMENT AND PLAN: 1. Chronic renal failure/end-stage renal disease-stable. We will continue current hemodialysis regimen of Saturday, , and Saturday. Once discharged, we will train her for peritoneal dialysis. 2. Nausea-unclear etiology. I have started Reglan 10 mg half tablet before meals and at bedtime. 3. Anemia, continuing Epogen. Status post blood transfusion. From a renal point of view, the patient can be discharged. She has an outpatient hemodialysis placement already. Job ID: [id number]
[2019-12-09] MEDS ORDERED: Pantoprazole 40 MG VIAL IVP SCH (09:00)
[2019-12-09] MEDS: Metoclopramide HCl 10 MG TAB PO SCH ×3 (11:52→20:19)
[2019-12-09] MEDS: hydrALAZINE 20 MG/ML VIAL SLOW IVP PRN (17:17)
--- NOTE | 2019-12-09 20:38 | PDOC.HOSPP ---
- Subjective Encounter Date: 12/09/19 Encounter Time: 10:30 Subjective: Patient seen and examined for ALON. Nausea improving. No new complaints. No overnight events - Objective Vital Signs & Weight: Vital Signs (12 hours) Temp Pulse Resp BP BP BP Pulse Ox 12/09/19 20:19 182/85 H 12/09/19 20:18 104 H 182/85 H 12/09/19 20:00 98.8 F 104 H 16 182/85 H 92 L 12/09/19 17:55 102 H 18 174/81 H 12/09/19 17:40 97 18 176/83 H 12/09/19 17:25 99 187/85 H 12/09/19 17:17 126 H 183/82 H 12/09/19 14:47 91 184/81 H 12/09/19 12:00 162/73 H Weight Weight 133 lb 9.602 oz I&O: 12/08/19 12/09/19 12/10/19 06:59 06:59 06:59 Intake Total 620 1330 670 Output Total 0 Balance 620 1330 670 Result Diagrams: 12/09/19 04:05 12/09/19 04:05 Hospitalist ROS - Review of Systems Respiratory: denies: cough, dry, shortness of breath, hemoptysis, SOB with excertion, pleuritic pain, sputum, wheezing, other Cardiovascular: denies: chest pain, palpitations, orthopnea, paroxysmal noc. dyspnea, edema, light headedness, other - Medication Medications: Active Medications Generic Name Dose Route Start Last Admin Trade Name Freq PRN Reason Stop Dose Admin Acetaminophen 1,000 mg 12/02/19 13:34 12/05/19 16:05 Tylenol PO 1,000 mg Q6H PRN Administration Mild-Moderate Pain (1-5) Calcitriol 0.25 mcg 12/03/19 09:00 12/09/19 08:01 Rocaltrol PO 0.25 mcg DAILY SORIN Administration Calcium Carbonate 1,000 mg 12/08/19 17:05 12/08/19 17:23 Tums PO 1,000 mg Q4H PRN Administration Heartburn or Indigestion Clonidine 0.2 mg 12/01/19 09:00 12/09/19 20:19 Catapres PO 0.2 mg BID SORIN Administration Epoetin Naresh-epbx 7,500 unit 12/04/19 18:00 12/04/19 18:27 Retacrit SC 7,500 unit Q7D SORIN Administration Ferrous Sulfate 325 mg 12/05/19 08:00 12/09/19 07:59 Feosol PO 325 mg QAM-WM SORIN Administration Hydralazine HCl 75 mg 12/01/19 09:00 12/09/19 20:18 Apresoline PO 75 mg TID SORIN Administration Hydralazine HCl 10 mg 12/07/19 21:41 12/09/19 17:17 Apresoline SLOW IVP 10 mg Q4H PRN Administration SBP Greater Than 180 Promethazine HCl 12.5 mg/ 50.5 mls @ 202 mls/hr 12/08/19 18:51 12/08/19 19:29 Sodium Chloride IVPB 50.5 mls Q6H PRN Administration Nausea/Vomiting Metoclopramide HCl 5 mg 12/09/19 11:30 12/09/19 20:19 Reglan PO 5 mg ACHS SORIN Administration Nystatin 500,000 units 12/01/19 17:00 12/09/19 20:29 Mycostatin SSW Not Given QID SORIN Ondansetron HCl 4 mg 12/01/19 10:03 12/08/19 15:52 Zofran SLOW IVP 4 mg Q4H PRN Administration Nausea/Vomiting Polyethylene Glycol 17 gm 12/09/19 09:00 12/09/19 08:02 Miralax PO 17 gm DAILY SORIN Administration Promethazine HCl 12.5 mg 12/02/19 17:26 12/08/19 05:54 Phenergan IM/IV 12.5 mg Q6H PRN Administration Nausea/Vomiting Sertraline HCl 50 mg 12/08/19 09:00 12/09/19 08:02 Zoloft PO Not Given DAILY SORIN Sevelamer Carbonate 800 mg 12/03/19 12:00 12/09/19 17:24 Renvela PO 800 mg TID-WM SORIN Administration Sodium Chloride 10 ml 12/01/19 21:00 12/09/19 20:29 Flush - Normal Saline IVF 10 ml Q12HR SORIN Administration Sodium Chloride 10 ml 12/01/19 09:38 12/08/19 15:52 Flush - Normal Saline IVF 10 ml PRN PRN Administration Saline Flush - Exam General Appearance: NAD Neck: no JVD Respiratory: no tachypnea Extremities: no edema Neurological: no new deficit Psychiatric: normal affect, A&O x 3 Hosp A/P - Plan DVT proph w/SCDs -ALON on CKD 3 due to FSGN-Nephrotic syndrome/ESRD Started on dialysis s/p hemosplit 12/02 s/p PD access and left arm fistula 12/04 - Chronic nausea - due to Uremia - improving s/p EGD 12/02 - Hiatal hernia - Secondary Hyperparathyroidism Cont Calcitriol/Renvela - Anemia due to CKD s/p 1 unit PRBC -Metabolic acidosis due to ALON - improving - Oral candidiasis Cont Nystatin SSP -HTN Cont Clonidine and Hydralazine Cont PRN HTN mes - h/o Cervical myelopathy - Hyponatremia - Depression on Zoloft - Constipation resolved -DC planning Will DC Central line Stable for discharge - Possible dc later today or in AM after outpt dialysis setup
[2019-12-10] MEDS: Metoclopramide HCl 10 MG TAB PO SCH ×4 (07:30→21:48)
[2019-12-10] MEDS: Sevelamer Carbonate 800 MG TAB PO SCH ×3 (08:05→17:40)
[2019-12-10] MEDS: Ferrous Sulfate 325 MG TAB PO SCH (08:05)
[2019-12-10] MEDS: Nystatin 500,000 UNITS/5 ML UDCUP SSW SCH ×4 (09:00→21:56)
[2019-12-10] MEDS: Polyethylene Glycol 3350 17 GM Packet PO SCH (09:00)
[2019-12-10] MEDS: hydrALAZINE 25 MG TAB PO SCH ×4 (09:00→21:49)
[2019-12-10] MEDS: cloNIDine 0.2 MG TAB PO SCH ×2 (09:00→21:49)
[2019-12-10] MEDS: Calcitriol 0.25 MCG CAP PO SCH (09:00)
--- NOTE | 2019-12-10 09:03 | PRG ---
DATE OF SERVICE: 12/10/2019 SUBJECTIVE: Ms. Jacobs is a 64-year-old white female with known history of chronic renal failure from a biopsy-proven FSGS. Her renal function has deteriorated over time. During this hospitalization, she has been initiated on hemodialysis. She is tolerating said treatment. She also had a PD catheter placed because she is interested in pursuing peritoneal dialysis as an outpatient. She is currently undergoing hemodialysis and tolerating said treatment. OBJECTIVE: VITAL SIGNS: Blood pressure 149/71, heart rate 103, respiratory rate 16, temperature 98.3, pulse oximetry 93%. GENERAL: Noted to be awake, alert, comfortable, not in distress. SKIN: Adequate turgor. HEENT: Slightly pale conjunctivae. Anicteric sclerae. No neck mass. No carotid bruits. No JVD. CHEST: No deformities. LUNGS: Clear breath sounds. HEART: Normal sinus rhythm. No murmurs, gallops, or rubs. ABDOMEN: Globular, soft, nontender, no masses. Positive for PD catheter on the abdomen. EXTREMITIES: No edema, no deformities. MEDICATIONS: Medications of December 10, 2019, was reviewed. LABORATORY DATA: Laboratories of December 09, 2019, sodium 137, potassium 3.4, chloride 100, carbon dioxide 30, BUN 16, creatinine 3.81, calcium 7.5. White count 9.8, hemoglobin 8.4. ASSESSMENT AND PLAN: 1. Chronic renal failure/endstage renal disease, on hemodialysis 3 times a week. On discharge, we will initiate peritoneal dialysis training with this patient. 2. Nausea-Reglan has been started. There is some improvement with the nausea. 3. Hypertension, stable. Continue current BP medications. 4. Anemia. The patient currently on weekly Epogen, on p.r.n. blood transfusion. 5. From a renal point of view, the patient can be discharge today. Job ID: [id number]
[2019-12-10] MEDS ORDERED: Heparin 10,000 UNITS/ 10 ML VIAL ONE (11:41)
[2019-12-10] MEDS: Promethazine HCl 25 MG/ML VIAL IM/IV PRN (11:51)
[2019-12-10] MEDS ORDERED: hydrALAZINE 20 MG/ML VIAL ONE (14:01)
[2019-12-10] MEDS: hydrALAZINE 20 MG/ML VIAL SLOW IVP PRN (14:04)
[2019-12-10] MEDS ORDERED: Labetalol HCl 100 MG/20 ML VIAL SLOW IVP SCH (19:45)
[2019-12-10] MEDS ORDERED: Labetalol HCl 100 MG/20 ML VIAL SLOW IVP PRN (20:33)
--- NOTE | 2019-12-10 22:17 | PDOC.HOSPP ---
- Subjective Encounter Date: 12/10/19 Encounter Time: 10:00 Subjective: Patient seen and examined for ALON. Undergoing dialysis. No new complaints. No overnight events - Objective Vital Signs & Weight: Vital Signs (12 hours) Temp Pulse Resp BP BP BP BP 12/10/19 21:49 110 H 153/77 H 12/10/19 20:40 107 H 135/68 12/10/19 20:15 108 H 129/67 12/10/19 20:00 106 H 135/66 12/10/19 19:54 127 H 185/80 H 12/10/19 19:40 12/10/19 17:43 115 H 181/81 H 12/10/19 17:37 115 H 181/81 H 12/10/19 16:00 98.8 F 127 H 16 185/80 H 189/88 H 12/10/19 15:34 204/91 H 12/10/19 15:30 200/91 H 12/10/19 14:20 98.7 F 110 H 16 180/88 H 12/10/19 14:04 100 204/91 H Pulse Ox 12/10/19 21:49 12/10/19 20:40 12/10/19 20:15 12/10/19 20:00 12/10/19 19:54 12/10/19 19:40 92 L 12/10/19 17:43 12/10/19 17:37 12/10/19 16:00 92 L 12/10/19 15:34 12/10/19 15:30 12/10/19 14:20 91 L 12/10/19 14:04 Weight Weight 133 lb 9.602 oz I&O: 12/09/19 12/10/19 12/11/19 06:59 06:59 06:59 Intake Total 1330 790 Output Total 2100 Balance 1330 790 -2100 Result Diagrams: 12/09/19 04:05 12/09/19 04:05 Hospitalist ROS - Review of Systems Respiratory: denies: cough, dry, shortness of breath, hemoptysis, SOB with excertion, pleuritic pain, sputum, wheezing, other Cardiovascular: denies: chest pain, palpitations, orthopnea, paroxysmal noc. dyspnea, edema, light headedness, other - Medication Medications: Active Medications Generic Name Dose Route Start Last Admin Trade Name Freq PRN Reason Stop Dose Admin Acetaminophen 1,000 mg 12/02/19 13:34 12/05/19 16:05 Tylenol PO 1,000 mg Q6H PRN Administration Mild-Moderate Pain (1-5) Calcitriol 0.25 mcg 12/03/19 09:00 12/10/19 09:00 Rocaltrol PO Not Given DAILY [facility] Calcium Carbonate 1,000 mg 12/08/19 17:05 12/08/19 17:23 Tums PO 1,000 mg Q4H PRN Administration Heartburn or Indigestion Clonidine 0.2 mg 12/01/19 09:00 12/10/19 21:49 Catapres PO 0.2 mg BID [facility] Administration Clonidine 0.1 mg 12/07/19 21:40 12/10/19 15:34 Catapres PO 0.1 mg Q4H PRN Administration SBP Greater Than 180 Epoetin Naresh-epbx 7,500 unit 12/04/19 18:00 12/04/19 18:27 Retacrit SC 7,500 unit Q7D [facility] Administration Ferrous Sulfate 325 mg 12/05/19 08:00 12/10/19 08:05 Feosol PO Not Given [facility] Hydralazine HCl 75 mg 12/01/19 09:00 12/10/19 21:49 Apresoline PO 75 mg TID [facility] Administration Hydralazine HCl 10 mg 12/07/19 21:41 12/10/19 14:04 Apresoline SLOW IVP 10 mg Q4H PRN Administration SBP Greater Than 180 Promethazine HCl 12.5 mg/ 50.5 mls @ 202 mls/hr 12/08/19 18:51 12/08/19 19:29 Sodium Chloride IVPB 50.5 mls Q6H PRN Administration Nausea/Vomiting Metoclopramide HCl 5 mg 12/09/19 11:30 12/10/19 21:48 Reglan PO 5 mg ACHS [facility] Administration Nystatin 500,000 units 12/01/19 17:00 12/10/19 21:56 Mycostatin SSW Not Given QID [facility] Ondansetron HCl 4 mg 12/01/19 10:03 12/08/19 15:52 Zofran SLOW IVP 4 mg Q4H PRN Administration Nausea/Vomiting Polyethylene Glycol 17 gm 12/09/19 09:00 12/10/19 09:00 Miralax PO Not Given DAILY [facility] Promethazine HCl 12.5 mg 12/02/19 17:26 12/10/19 11:51 Phenergan IM/IV 12.5 mg Q6H PRN Administration Nausea/Vomiting Senna 2 tab 12/08/19 10:26 12/10/19 21:48 Senokot PO 2 tab HSPRN PRN Administration Constipation Sertraline HCl 50 mg 12/08/19 09:00 12/10/19 09:00 Zoloft PO Not Given DAILY [facility] Sevelamer Carbonate 800 mg 12/03/19 12:00 12/10/19 17:40 Renvela PO Not Given TID-WM [facility] Sodium Chloride 10 ml 12/01/19 21:00 12/10/19 19:55 Flush - Normal Saline IVF 10 ml Q12HR [facility] Administration Sodium Chloride 10 ml 12/01/19 09:38 12/08/19 15:52 Flush - Normal Saline IVF 10 ml PRN PRN Administration Saline Flush - Exam General Appearance: NAD Heart: RRR, no gallops Respiratory: no wheezes, no ronchi Gastrointestinal: non-tender, non-distended Extremities: no cyanosis Hosp A/P - Plan DVT proph w/SCDs -ALON on CKD 3 due to FSGN-Nephrotic syndrome/ESRD Started on dialysis this admission s/p hemosplit 12/02 s/p PD access and left arm fistula 12/04 - Chronic nausea - due to Uremia - improving s/p EGD 12/02 - Hiatal hernia - Secondary Hyperparathyroidism Cont Calcitriol/Renvela - Anemia due to CKD s/p 1 unit PRBC -Metabolic acidosis due to ALON - improving - Oral candidiasis Cont Nystatin SSP -HTN Cont Clonidine and Hydralazine Add Metoprolol Cont PRN HTN mes - h/o Cervical myelopathy - Hyponatremia - Depression on Zoloft - Constipation resolved -DC planning Will DC Central line Stable for discharge - Possible dc later today after outpt dialysis setup
[2019-12-11] MEDS: Sevelamer Carbonate 800 MG TAB PO SCH ×2 (07:51→12:18)
[2019-12-11] MEDS: Metoclopramide HCl 10 MG TAB PO SCH ×2 (07:53→12:17)
[2019-12-11] MEDS: Ferrous Sulfate 325 MG TAB PO SCH (08:01)
[2019-12-11] MEDS ORDERED: Metoprolol Tartrate 25 MG TAB PO SCH (09:00)
[2019-12-11 09:08] VITALS: TEMP 97.7
--- NOTE | 2019-12-11 09:11 | PRG ---
DATE OF SERVICE: 12/11/2019 SUBJECTIVE: Ms. Jacobs is a 64-year-old white female with a history of chronic renal failure from biopsy-proven FSGS. Her renal function has worsen. She has been initiated on dialysis. Yesterday after dialysis, she complained of headache and nausea. She also had associated ? of vomiting. Her nausea has been there for the last several months. My plan is to at least work her up for to rule out any intracranial abnormality. A CAT scan will be done today. My plan is if the CAT scan is negative, she will be discharged. She will follow up with the outpatient dialysis. This morning, she is feeling a little better. No chest pain or shortness of breath. OBJECTIVE: VITAL SIGNS: Blood pressure 146/67, heart rate 92, respiratory rate 16, and O2 sat is noted at 93%. GENERAL: Awake, alert, sitting comfortable, not in distress. SKIN: Adequate turgor. HEENT: Pinkish conjunctivae. Anicteric sclerae. NECK: No neck mass. No carotid bruits. No JVD. CHEST: No deformities. LUNGS: Clear breath sounds. No wheezing. No crackles. HEART: Normal sinus rhythm. No murmurs, gallops, or rubs. ABDOMEN: Globular, soft. Nontender. No masses. EXTREMITIES: No edema. No deformities. MEDICATIONS: Medications of December 11, 2019, were reviewed. LABORATORY DATA: Laboratories of December 09, 2019; hemoglobin 8.4. Potassium 3.4, chloride 100, BUN is 16, and creatinine 3.81. ASSESSMENT AND PLAN: 1. Persistent nausea - GI workup has been negative. We will order CAT scan of the head without contrast. 2. Hypertension. Continue current BP medications. 3. End-stage renal disease, stable. We will continue outpatient hemodialysis. Once discharged, we will start training for peritoneal dialysis. 4. Anemia. Continuing weekly Epogen. Job ID: [id number]
[2019-12-11] MEDS: hydrALAZINE 25 MG TAB PO SCH (09:39)
[2019-12-11] MEDS: Nystatin 500,000 UNITS/5 ML UDCUP SSW SCH ×2 (09:42→12:18)
[2019-12-11] MEDS: cloNIDine 0.2 MG TAB PO SCH ×2 (09:43→09:47)
[2019-12-11] MEDS: Polyethylene Glycol 3350 17 GM Packet PO SCH ×2 (09:43→09:50)
[2019-12-11 09:44] VITALS: BP 162/72
[2019-12-11] MEDS: Calcitriol 0.25 MCG CAP PO SCH (09:49)
--- NOTE | 2019-12-11 11:23 | CT ---
CT BRAIN WITHOUT CONTRAST: HISTORY:Headache with persistent nausea COMPARISON:08/06/2017 FINDINGS: No evidence of acute infarct, hemorrhage, midline shift or abnormal extra-axial fluid collections is seen. The ventricular size is appropriate and the basilar cisterns are patent. The bony calvarium is intact. The visualized paranasal sinuses and mastoid air cells are well aerated. IMPRESSION: No CT evidence of acute intracranial process.
--- NOTE | 2019-12-11 14:39 | DIS ---
DATE OF ADMISSION: 11/30/2019 DATE OF DISCHARGE: 12/11/2019 DISCHARGE DISPOSITION: Home. FOLLOWUP: 1. Follow up with primary care physician, Dr. Brie Pihllips in 1 week. 2. Follow up with Dr. Chavarria and Dr. Mil Manjarrez as scheduled. ALLERGIES: NO KNOWN DRUG ALLERGIES. DISCHARGE MEDICATIONS: 1. Metoprolol 25 mg b.i.d. 2. Hydralazine 50 mg four times a day. 3. Ferrous sulfate 325 mg daily. 4. Renvela 800 mg three times daily with meals. 5. Omeprazole 20 mg daily. 6. Phenergan as needed. 7. Clonidine 0.2 mg b.i.d. 8. Calcitriol 0.25 mcg daily. The patient was seen on the day of discharge. Denies any new complaints. No chest pain, shortness of breath, or palpitations reported. 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 Her workup was consistent with acute kidney injury on CKD stage 3 with significant volume overload. She was evaluated by Nephrology, Dr. Chavarria. She was started on hemodialysis. Later on, a HemoSplit catheter along with left arm fistula and peritoneal dialysis catheter were placed. She continues to have intermittent nausea, especially postdialysis. She has been accepted at [facility]. She has been cleared by Nephrology for discharge. Due to persistent nausea, she was evaluated by Gastroenterology, Dr. Manning. An EGD was performed on November that showed hiatal hernia. The patient also received 1 unit of PRBC during this hospital stay. Hemoglobin at discharge is 8.4. FINAL DIAGNOSES: 1. Acute kidney injury on chronic kidney disease stage 3 secondary to focal segmental glomerulosclerosis, started on hemodialysis. 2. Chronic nausea, probably secondary to uremia. 3. Hiatal hernia. 4. Secondary hyperparathyroidism. 5. Anemia secondary to chronic kidney disease, status post 1 unit PRBC. 6. Metabolic acidosis secondary to acute kidney injury. 7. Oral candidiasis, completed nystatin swish and split. 8. Hypertension. 9. Hyponatremia. 10. Hypokalemia. 11. Depression. 12. Constipation, resolved. 13. History of cervical myelopathy. 14. Physical deconditioning. 15. Volume overload on admission, improved. The patient understands the above plan of care. Job ID: [id number]
--- NOTE | 2019-12-12 15:30 | EKG ---
Test Reason : HTN Blood Pressure : / mmHG Vent. Rate : 086 BPM Atrial Rate : 086 BPM P-R Int : 150 ms QRS Dur : 070 ms QT Int : 362 ms P-R-T Axes : 008 060 041 degrees QTc Int : 433 ms Normal sinus rhythm Cannot rule out Anterior infarct , age undetermined Abnormal ECG Confirmed by RADHA GENTILE, JEAN-CLAUDE ([id number]), sports editor ALICIA MCGARRY ([id number]) on 12/12/2019 3:30:34 PM Referred By: Confirmed By:JEAN-CLAUDE GARCIA MD
== END 2019-12-11 13:43 | disposition home or self-care (01) | DRG 674 ==
LOC: ERS 17:02 → 2NO 21:05 → ONC 12-07 17:41
PROVIDERS: ADMIT Hospitalist; ATTEND Hospitalist
PROC: 0JH63XZ Insertion of Tunneled Vascular Access Device into Chest Subcutaneous Tissue and Fascia, Percutaneous Approach (ICD-10-PCS; principal; 2019-12-02)
PROC: 02HV33Z Insertion of Infusion Device into Superior Vena Cava, Percutaneous Approach (ICD-10-PCS; 2019-12-02)
PROC: B518ZZA Fluoroscopy of Superior Vena Cava, Guidance (ICD-10-PCS; 2019-12-02)
PROC: 02HV33Z Insertion of Infusion Device into Superior Vena Cava, Percutaneous Approach (ICD-10-PCS; 2019-12-02)
PROC: B548ZZA Ultrasonography of Superior Vena Cava, Guidance (ICD-10-PCS; 2019-12-02)
PROC: 0DJ08ZZ Inspection of Upper Intestinal Tract, Via Natural or Artificial Opening Endoscopic (ICD-10-PCS; 2019-12-02)
PROC: 5A1D70Z Performance of Urinary Filtration, Intermittent, Less than 6 Hours Per Day (ICD-10-PCS; 2019-12-02)
PROC: 0WHG43Z Insertion of Infusion Device into Peritoneal Cavity, Percutaneous Endoscopic Approach (ICD-10-PCS; 2019-12-04)
PROC: 0DQU4ZZ Repair Omentum, Percutaneous Endoscopic Approach (ICD-10-PCS; 2019-12-04)
PROC: 031C3ZF Bypass Left Radial Artery to Lower Arm Vein, Percutaneous Approach (ICD-10-PCS; 2019-12-04)
DX: N17.9 Acute kidney failure, unspecified (principal); B37.0 Candidal stomatitis; E87.1 Hypo-osmolality and hyponatremia; M50.00 Cervical disc disorder with myelopathy, unspecified cervical region; D62 Acute posthemorrhagic anemia; E87.2 Acidosis; N04.1 Nephrotic syndrome with focal and segmental glomerular lesions; N18.6 End stage renal disease; N25.81 Secondary hyperparathyroidism of renal origin; K44.9 Diaphragmatic hernia without obstruction or gangrene; D63.1 Anemia in chronic kidney disease; E87.6 Hypokalemia; F32.9 Major depressive disorder, single episode, unspecified; K59.00 Constipation, unspecified; I10 Essential (primary) hypertension; E87.70 Fluid overload, unspecified; E86.0 Dehydration; E83.39 Other disorders of phosphorus metabolism; R11.0 Nausea; Z79.899 Other long term (current) drug therapy
CPT/HCPCS: 36415; 36430; 70450; 71045; 71046; 76000; 76770; 80048; 80053; 80069; 81001; 82550; 82570; 83690; 83880; 83970; 84100; 84300; 84484; 85025; 86580; 86704; 86706; 86803; 86850; 86900; 86901; 87340; 90935; 93005; 93970; 96365; 96375; C1752; C9113; G0257; G0365; J0360; J0690; J1100; J1644; J1650; J1940; J2001; J2250; J2405; J2550; J2704; J2720; J2765; J3010; P9016; P9047; Q5105; S0020; S0028

== ENCOUNTER 2019-12-31 09:16 | Emergency (ER) | payer MEDICARE ==
[2019-12-31] MEDS ORDERED: Ondansetron PF 4 MG/2 ML Vial ONE (09:49)
[2019-12-31 10:31] LABS: #Basophils 0.1 thou/uL (0.0-0.2); #Eosinphils 0.1 thou/uL (0.0-0.7); #Lymphocytes 1.7 thou/uL (1.20-3.40); #Monocytes 0.6 thou/uL (0.11-0.59); #Neutrophils 6.2 thou/uL (1.40-6.50); %Basophils 1.3 % (0.0-1.0); %Eosinophils 1.6 % (0.0-10.0); %Lymphocytes 19.2 % (21.0-51.0); %Monocytes 6.8 % (0.0-10.0); %Neutrophils 71.1 % (42.0-75.0); Hemoglobin 10.2 g/dL (12.0-16.0); Mean Corpuscular HGB CONC 32.1 g/dL (32.0-36.0); Mean Corpuscular Hemoglobin 30.2 pg (27.0-31.0); Mean Corpuscular Volume 93.9 fL (78.0-98.0); Mean Platelet Volume 7.9 fL (7.4-10.4); Platelet Count 295 thou/uL (130-400); RBC Distribution Width 13.1 % (11.5-14.5); Red Blood Cell (RBC) Count 3.37 mill/uL (4.20-5.40); White Blood Cell (WBC) Count 8.7 thou/uL (4.8-10.8)
[2019-12-31 11:00] LABS: ALT (SGPT) Less than 7 U/L (8-55); AST (SGOT) 14 U/L (5-34); Albumin 2.7 g/dL (3.4-4.8); Alkaline Phosphatase 149 U/L (40-110); Anion Gap 15 mmol/L (10-20); BUN (Urea Nitrogen) 19 mg/dL (9.8-20.1); Bilirubin, Total 0.5 mg/dL (0.2-1.2); Calc. Creatinine Clearance 0 mL/min (70-130); Calcium 8.6 mg/dL (7.8-10.44); Carbon Dioxide 30 mmol/L (23-31); Chloride 92 mmol/L (98-107); Estimated GFR-MDRD 5; Globulin 2.9 g/dL (2.4-3.5); Glucose 127 mg/dL (80-115); Lipase 14 U/L (8-78); Potassium 3.5 mmol/L (3.5-5.1); Protein, Total 5.6 g/dL (6.0-8.3); Sodium 133 mmol/L (136-145)
[2019-12-31] MEDS ORDERED: Ondansetron ODT 4 MG TAB ONE (12:27)
== END 2019-12-31 14:16 | disposition home or self-care (01) ==
LOC: ERS 09:16
DX: E86.0 Dehydration (principal); I12.0 Hypertensive chronic kidney disease with stage 5 chronic kidney disease or end stage renal disease; N18.6 End stage renal disease; Z79.899 Other long term (current) drug therapy
CPT/HCPCS: 80053; 83690; 85025; 93005; 96361; 96374; J2405; Q0162

== ENCOUNTER 2020-01-01 16:20 | Inpatient (IN) | payer MEDICARE ==
[~2020-01-01 16:20] MED LIST: Iopamidol-370 76% 500 ML 1 ML ONE
[2020-01-01] MEDS ORDERED: Ondansetron PF 4 MG/2 ML Vial ONE (17:07)
[2020-01-01 17:18] LABS: #Basophils 0.1 thou/uL (0.0-0.2); #Eosinphils 0.1 thou/uL (0.0-0.7); #Lymphocytes 2.3 thou/uL (1.20-3.40); #Monocytes 0.6 thou/uL (0.11-0.59); #Neutrophils 5.7 thou/uL (1.40-6.50); %Basophils 0.6 % (0.0-1.0); %Lymphocytes 26.1 % (21.0-51.0); %Monocytes 7.2 % (0.0-10.0); %Neutrophils 65.2 % (42.0-75.0); Hemoglobin 9.6 g/dL (12.0-16.0); Mean Corpuscular HGB CONC 34.1 g/dL (32.0-36.0); Mean Corpuscular Hemoglobin 31.3 pg (27.0-31.0); Mean Platelet Volume 7.8 fL (7.4-10.4); Platelet Count 316 thou/uL (130-400); Red Blood Cell (RBC) Count 3.06 mill/uL (4.20-5.40); White Blood Cell (WBC) Count 8.7 thou/uL (4.8-10.8)
[2020-01-01 17:42] LABS: ALT (SGPT) Less than 7 U/L (8-55); AST (SGOT) 12 U/L (5-34); Albumin 2.4 g/dL (3.4-4.8); Alkaline Phosphatase 137 U/L (40-110); Anion Gap 15 mmol/L (10-20); BUN (Urea Nitrogen) 19 mg/dL (9.8-20.1); Bilirubin, Total 0.5 mg/dL (0.2-1.2); Calc. Creatinine Clearance 0 mL/min (70-130); Calcium 7.7 mg/dL (7.8-10.44); Carbon Dioxide 28 mmol/L (23-31); Chloride 95 mmol/L (98-107); Estimated GFR-MDRD 4; Globulin 2.6 g/dL (2.4-3.5); Glucose 113 mg/dL (80-115); Lipase 12 U/L (8-78); Magnesium 1.3 mg/dL (1.6-2.6); Potassium 3.3 mmol/L (3.5-5.1); Sodium 135 mmol/L (136-145)
--- NOTE | 2020-01-01 18:02 | CT ---
CT ABDOMEN AND PELVIS PERFORMED WITH INTRAVENOUS CONTRAST ENHANCEMENT: 01/01/19 HISTORY: Abdominal pain. Persistent nausea and vomiting. History of peritoneal dialysis. COMPARISON: A noncontrast study performed 10/22/19. Large bilateral pleural effusions are noted with bibasilar atelectatic lung change. The liver, spleen and pancreas regions appear unremarkable. Gallbladder does not appear distended. Right and left adrenal glands and right and left kidneys are normal in size. No obstruction. There is some mild ascites noted. There is some free air seen within the abdomen but the patient does have a peritoneal dialysis catheter which could explain this air. I do not see any other definite etiology f or the air. There is no pelvic lymphadenopathy or mass. The appendix appears normal. A left hip prost hesis is present. IMPRESSION: 1. Large bilateral pleural effusion also with evidence of anasarca with edema change in the subc utaneous tissue suggesting fluid overload. 2. Peritoneal dialysis catheter with some moderate ascites noted. There is also some tiny areas of free air seen within the abdomen. This could be explained on the basis of the peritoneal dialysis catheter that is within the pelvis. POS: MANISH
[2020-01-01] MEDS ORDERED: Promethazine HCl 25 MG/ML VIAL ONE (18:12)
[2020-01-01] MEDS ORDERED: cefTRIAXone\\ROCEPHIN 1 GM VIAL ONE (19:41)
[2020-01-01] MEDS ORDERED: Ondansetron PF 4 MG/2 ML Vial IVP PRN (20:20)
[2020-01-01] MEDS ORDERED: Sodium Chloride 0.9% 1,000 ML IV SCH (20:30)
--- NOTE | 2020-01-01 20:37 | PDOC.EVN ---
Event Note - Event Note Event Note: [id number] HP
[2020-01-01] MEDS ORDERED: Cefepime 1 GM in Sodium Chloride 0.9% 100 ML IVPB SCH (21:00)
[2020-01-01] MEDS ORDERED: Magnesium 2 GM/50 ML 2 GM in Premix Bag 1 BAG IVPB SCH (21:00)
[2020-01-01 21:03] LABS: RBC Count-Automated (BF) 133 /cumm; WBC/Nucleated-Auto (BF) 116 uL
[2020-01-01 21:14] LABS: Fluid, Glucose 136 mg/dL (Not Available); Fluid, Protein Less than 1.0 g/dL (Not Available)
[2020-01-01 21:20] LABS: BF Color Yellow; Clarity Clear (Clear); Tube # EDTA
[2020-01-01 21:22] LABS: BF Segmented Neutrophils 5 %; Cell Count Non Hematic 74 %; Eosinophils 3 %; Lymphocytes 18 %
[2020-01-01 22:16] VITALS: BMI 19.5
[2020-01-01] MEDS: Famotidine/PF 20 mg/2ml Vial SLOW IVP SCH (22:43)
--- NOTE | 2020-01-02 02:56 | HP ---
CHIEF COMPLAINT: Intractable vomiting and weakness. HISTORY OF PRESENT ILLNESS: Ms. Jacobs is a 64-year-old female who is presenting to the emergency room for the 2nd day with intractable vomiting. The patient was present in the ER yesterday and was told to report back if vomiting continued. Dialysis is done each night, peritoneal dialysis. Family reported the patient has not had a fever. The patient denies abdominal pain. The family also reports the patient is not taking fluids or eat well. The patient currently is on peritoneal dialysis. Her kidneys started failing and has a medical history of FSGS. Family reports the patient did have an infection in her port that was red and oozing. The patient was put on antibiotic, ciprofloxacin. CT of the abdomen was done which showed no acute finding. There was a concern of internal catheter infection and the case was discussed with Dr. Chavarria, the patient's multimedia developer, who advised to start the patient on IV ceftazidime. Dr. Chavarria will send dialysis nurse to obtain peritoneal fluid for cultures and sensitivity. PAST MEDICAL HISTORY: FSGS, hypertension. PAST SURGICAL HISTORY: 1. Peritoneal dialysis port. 2. AV fistula, left antecubital. 3. Left ankle tender surgery. 4. Left hip replacement. 5. Cataract surgery. 6. Neck surgery, C5 and C6 plate. SOCIAL HISTORY: Lives with home with family. Denies alcohol drinking. Denies drug use. No smoking history. ALLERGIES: NO KNOWN ALLERGIES. HOME MEDICATIONS: Please see home medication reconciliation form for updated medications. REVIEW OF SYSTEMS: Review of 14 systems negative except what is mentioned in History of Present Illness. PHYSICAL EXAMINATION: GENERAL: The patient is awake, alert, not in acute distress. VITAL SIGNS: Blood pressure 168/79, pulse is 93, respiratory rate 16, pulse oximetry 97%, temperature is 98.5. HEAD AND NECK: Normocephalic, atraumatic. NECK: Supple. No JVD. CHEST: Fair. Bilateral air entry. HEART: S1, S2. Regular. ABDOMEN: Soft. Peritoneal catheter in place. Dressing applied. Bowel sounds present. NEUROLOGIC: Awake, alert, oriented x3, generalized weakness. PSYCH: Unable to assess. EXTREMITIES: No clubbing, no cyanosis. GENITOURINARY: No suprapubic tenderness. No flank tenderness. LABORATORY DATA: Sodium 135, potassium 3.3, BUN is 19, creatinine is 9, lipase is 12, magnesium is 1.3. WBC is 8.7, hemoglobin 9.6, platelets is 316. ASSESSMENT AND PLAN: 1. Intractable nausea and vomiting. 2. End-stage renal disease on peritoneal dialysis. 3. Focal segmental glomerulosclerosis. 4. Hypomagnesemia. 5. Dehydration. 6. Intraabdominal infection? Peritoneal catheter infection, internal, suspected. PLAN: 1. Admit. 2. Septic workup including peritoneal fluid cultures. 3. IV antibiotics, multimedia developer recommended IV ceftazidime. 4. Consult Pharmacy for dosing. 5. Cautious IV fluid hydration. 6. Peritoneal dialysis as per multimedia developer. 7. Reconcile home medications. 8. DVT prophylaxis appropriate. 9. Expected length of stay 2 midnights or more. Job ID: [id number]
[2020-01-02 04:19] LABS: #Basophils 0.1 thou/uL (0.0-0.2); #Eosinphils 0.1 thou/uL (0.0-0.7); #Lymphocytes 2.2 thou/uL (1.20-3.40); #Monocytes 0.6 thou/uL (0.11-0.59); #Neutrophils 4.3 thou/uL (1.40-6.50); %Basophils 1.4 % (0.0-1.0); %Lymphocytes 29.7 % (21.0-51.0); %Monocytes 8.2 % (0.0-10.0); %Neutrophils 58.7 % (42.0-75.0); Hemoglobin 8.4 g/dL (12.0-16.0); Mean Corpuscular HGB CONC 33.3 g/dL (32.0-36.0); Mean Corpuscular Hemoglobin 30.9 pg (27.0-31.0); Mean Platelet Volume 7.8 fL (7.4-10.4); Platelet Count 260 thou/uL (130-400); RBC Distribution Width 12.8 % (11.5-14.5); Red Blood Cell (RBC) Count 2.73 mill/uL (4.20-5.40); White Blood Cell (WBC) Count 7.3 thou/uL (4.8-10.8)
[2020-01-02] MEDS ORDERED: [UNRECOGNIZED DRUG - REMARK] IVPB PRN (04:27)
[2020-01-02 04:37] LABS: ALT (SGPT) Less than 7 U/L (8-55); AST (SGOT) 11 U/L (5-34); Albumin 2.1 g/dL (3.4-4.8); Alkaline Phosphatase 117 U/L (40-110); Anion Gap 13 mmol/L (10-20); BUN (Urea Nitrogen) 20 mg/dL (9.8-20.1); Bilirubin, Total 0.4 mg/dL (0.2-1.2); Calc. Creatinine Clearance 5 mL/min (70-130); Calcium 7.5 mg/dL (7.8-10.44); Carbon Dioxide 28 mmol/L (23-31); Chloride 97 mmol/L (98-107); Estimated GFR-MDRD 4; Globulin 2.4 g/dL (2.4-3.5); Glucose 120 mg/dL (80-115); Potassium 3.1 mmol/L (3.5-5.1); Protein, Total 4.5 g/dL (6.0-8.3); Sodium 135 mmol/L (136-145)
[2020-01-02] MEDS ORDERED: Potassium Chloride 20 MEQ TAB PO SCH (07:45)
--- NOTE | 2020-01-02 08:34 | CON ---
DATE OF CONSULTATION: 01/02/2020 SERVICE: Nephrology. REASON FOR CONSULTATION: End-stage renal disease management. REQUESTING PHYSICIAN: Dr. Julio Perkins. HISTORY OF PRESENT ILLNESS: A 64-year-old female with known history of end-stage renal disease secondary to FSGS on peritoneal dialysis, admitted with intractable nausea, vomiting, as well as dry heaves associated with poor oral intake for several days. Symptoms got worse and the patient presented to the ER and was admitted. There was no history of abdominal pain or fever or drainage from the catheter or around the catheter exit wound. The patient admitted to mild redness around the exit wound. There is no history of hematemesis or hematochezia. The patient does not make urine anymore. She also admitted some edema of the face especially on waking up in the morning. She denied chest pain, leg redness, or focal weakness. She also denied shortness of breath. PAST MEDICAL HISTORY: 1. Hypertension. 2. FSGS. 3. End-stage renal disease, on peritoneal dialysis. 4. Gastroesophageal reflux disease. PAST SURGICAL HISTORY: 1. Peritoneal dialysis catheter placement. 2. IV fistula creation. 3. Left ankle surgery. 4. Left hip replacement. 5. Cataract surgery. 6. Neck surgery. FAMILY HISTORY: The patient lives with family. Family history is reviewed but noncontributory. SOCIAL HISTORY: The patient lives with family. Denied alcohol, smoking, or recreational drug use. ALLERGIES: NO KNOWN DRUG ALLERGIES REPORTED. HOME MEDICATIONS: 1. Clonidine 0.2 mg p.o. b.i.d. p.r.n. for elevations in blood pressure. 2. Hydralazine 50 mg p.o. b.i.d. 3. Omeprazole 20 mg p.o. daily. 4. Renvela 800 mg p.o. daily with meals. 5. Phenergan 25 mg q.6 p.r.n. 6. Calcitriol 0.25 mcg p.o. daily. 7. Metoprolol 25 mg p.o. b.i.d. REVIEW OF SYSTEMS: Twelve-point review of systems performed was negative other than pertinent positives and negatives included in the history of present illness. PHYSICAL EXAMINATION: VITAL SIGNS: Temperature 98.6, pulse 81, respiratory rate 16, SpO2 of 93% on room air, blood pressure is 167/74. GENERAL: Slim female, in no obvious distress. Afebrile. Anicteric. Acyanotic. HEENT: Normocephalic, atraumatic. Mild facial puffiness noted. Oral mucosa is moist. NECK: Supple with no obvious JVD. CARDIOVASCULAR: Regular rhythm and rate with normal heart sounds, one and two. RESPIRATORY: Fair air entry bilaterally with no obvious crackle or rhonchi or use of accessory muscles. GI: Full, soft, nontender, nondistended. PD catheter noted with dressing. Minimal or no residual erythema noted with no discharge. EXTREMITIES: Grossly normal looking atraumatic with no edema or erythema. LEVERS LACE MACHINE OPERATOR: Conscious, alert, oriented x3 with appropriate mental status. Cranial nerves 2 through 12 are grossly intact. The patient moves all extremities. DIAGNOSTIC DATA: CBC today showed WBC count of 7.3, hemoglobin of 8.4, platelet of 260. Chemistry today showed sodium 135, potassium 3.1, chloride 97, CO2 of 28, BUN 20, creatinine 9.19, glucose 120, calcium 7.5, total bilirubin 0.4, AST 11, ALT less than 7, alkaline phosphatase 117, total protein 4.5, . On presentation yesterday, however, lipase was 12. Initial troponin was 0.016 and magnesium was 1.3. CT scan of the abdomen performed on presentation yesterday showed large bilateral pleural effusion with evidence of anasarca with edema change in the subcutaneous tissues suggesting fluid overload. Peritoneal dialysis catheter with some moderate ascites also was noted with tiny areas of free air within the abdomen. ASSESSMENT: 1. End-stage renal disease, on peritoneal dialysis. 2. Intractable nausea and vomiting and dry heaves: Peritoneal fluid is not consistent with peritonitis. The patient reports poor oral intake, which dates back for several weeks due to dry heaving and gagging on trying to eat. There is no white count, tachycardia or leukocytosis to suggest acute systemic infection. 3. Moderate to severe protein-calorie malnutrition. 4. Hypoalbuminemia: Due to poor oral intake as well as protein losses in peritoneal fluid. 5. Anasarca: Due to hypoalbuminemia. 6. Bilateral pleural effusion, most likely related to hypoalbuminemia with transudation. 7. Nausea and vomiting: This may be related to gastritis. Gastroesophageal reflux disease is a concern. The patient has history of reflux. 8. Hypertension: Control is suboptimal. The patient is yet to restart usual home medications. 9. Hypokalemia: Due to poor oral intake and losses in the peritoneal fluid. 10. Hypomagnesemia: Due to poor oral intake and losses in the peritoneal fluid. PLAN: 1. We will replete serum potassium and magnesium. We will also get serum phosphorus. 2. We will start the patient on Nepro. We will recommend advancement of diet as tolerated. 3. We will start the patient on antiemetic, Reglan scheduled to facilitate increased GI motility. 4. We will also restart the patient's antihypertensives to get adequate blood pressure control. 5. IV Protonix will be commenced at this time. 6. We will also continue peritoneal dialysis. We will consider adjusting PD treatment to increase UF given facial edema and anasarca. 7. We will recommend GI consult given that this problem has been protracted. 8. We will follow along with you. Followup treatment to follow depending on hospital course. Job ID: [id number]
[2020-01-02] MEDS ORDERED: Prevnar 13-Val Conj/PF 0.5 ML SYRINGE IM ONE (09:00)
[2020-01-02] MEDS: Pantoprazole 40 MG VIAL IVP SCH (09:23)
[2020-01-02] MEDS: Metoprolol Tartrate 25 MG TAB PO SCH ×2 (09:59→20:40)
[2020-01-02] MEDS: hydrALAZINE 25 MG TAB PO SCH ×2 (09:59→20:40)
[2020-01-02] MEDS: Promethazine HCl 25 MG in Sodium Chloride 0.9% 50 ML IVPB PRN ×2 (12:24→21:18)
--- NOTE | 2020-01-02 14:22 | PDOC.HOSPP ---
- Subjective Encounter Date: 01/02/20 Encounter Time: 14:20 Subjective: Ms. Jacobs was seen today in follow-up of chronic nausea. She says this has been going on for several days. She denies abdominal pain. - Objective Vital Signs & Weight: Vital Signs (12 hours) Temp Pulse Resp BP BP Pulse Ox 01/02/20 11:52 98.4 F 92 18 162/82 H 96 01/02/20 09:59 96 185/90 H 01/02/20 08:10 98 01/02/20 08:00 98.3 F 96 18 185/90 H 95 01/02/20 04:00 98.6 F 81 16 167/74 H 93 L Weight Admit Weight 124 lb 9.6 oz Weight 124 lb 9.6 oz I&O: 01/01/20 01/02/20 01/03/20 06:59 06:59 06:59 Intake Total 180 Balance 180 Result Diagrams: 01/02/20 03:52 01/02/20 03:52 Hospitalist ROS - Medication Medications: Active Medications Generic Name Dose Route Start Last Admin Trade Name Freq PRN Reason Stop Dose Admin Famotidine 20 mg 01/01/20 21:00 01/01/20 22:43 Pepcid SLOW IVP 20 mg QPM SORIN Administration Hydralazine HCl 50 mg 01/02/20 09:00 01/02/20 09:59 Apresoline PO 50 mg BID SORIN Administration Promethazine HCl 25 mg/ Sodium 51 mls @ 204 mls/hr 01/02/20 12:01 01/02/20 12 :24 Chloride IVPB 51 mls Q6H PRN Administration Nausea/Vomiting Metoprolol Tartrate 25 mg 01/02/20 09:00 01/02/20 09:59 Lopressor PO 25 mg BID SORIN Administration Ondansetron HCl 4 mg 01/01/20 20:20 01/02/20 09:23 Zofran IVP 4 mg Q6H PRN Administration Nausea/Vomiting Pantoprazole Sodium 40 mg 01/02/20 09:00 01/02/20 09:23 Protonix IVP 40 mg DAILY SORIN Administration Sodium Chloride 10 ml 01/02/20 09:00 01/02/20 09:23 Flush - Normal Saline IVF 10 ml Q12HR SORIN Administration - Exam Eye: PERRL Heart: RRR, no murmur, no gallops, no rubs, normal peripheral pulses Respiratory: CTAB, no wheezes, no rales, no ronchi, normal chest expansion, no tachypnea, normal percussion Gastrointestinal: soft, non-tender, non-distended, normal bowel sounds, no palpable masses, no hepatomegaly, no splenomegaly Extremities: no cyanosis, no clubbing, no edema Hosp A/P (1) End stage renal disease on dialysis Code(s): N18.6 - END STAGE RENAL DISEASE; Z99.2 - DEPENDENCE ON RENAL DIALYSIS Status: Acute (2) Nausea & vomiting Code(s): R11.2 - NAUSEA WITH VOMITING, UNSPECIFIED Status: Acute (3) Hypertension Code(s): I10 - ESSENTIAL (PRIMARY) HYPERTENSION Status: Chronic - Plan * Chronic nausea- ? etiology- she has a slightly elevated alkaline phosphate, and last abdominal ultrasound demonstrated gall bladder sludge- will check a HIDA scan * If this is negative, then will consult GI ( Gastroparesis is a possibility as well) * ESRD- continue PD * HTN-blood pressure is a bit elevated- re-start her home medications, and add PRN medications as well * Will give a trail of Leon
[2020-01-02] MEDS ORDERED: Labetalol HCl 100 MG/20 ML VIAL SLOW IVP PRN (14:24)
[2020-01-02] MEDS ORDERED: hydrALAZINE 25 MG TAB PO PRN (14:24)
[2020-01-02] MEDS ORDERED: hydrALAZINE 20 MG/ML VIAL SLOW IVP PRN (14:24)
[2020-01-02] MEDS ORDERED: D5W-AA 4.25% with LYTES 1,000 ML BAG IV SCH (14:30)
[2020-01-02] MEDS ORDERED: D5W-AA 4.25% with LYTES 1,000 ML IV SCH (17:30)
--- NOTE | 2020-01-02 19:57 | NM ---
HEPATOBILIARY SCAN: HISTORY:Chronic nausea. Abdominal pain. No gallstones on ultrasound of 10/24/2019. RADIOPHARMACEUTICAL: 4.5 mCi Technetium 99m Mebrofenin injected intravenously FINDINGS: There is normal tracer extraction by the liver with normal excretion into the biliary tracts and smal l bowel loops and normal filling of the gallbladder. The calculated gallbladder ejection fraction following an IV infusion of 1.1 mcg CCK-8 over 30 minute s measures 68%. IMPRESSION:Normal exam.
[2020-01-02] MEDS: D5W-AA 4.25% with LYTES 1,000 ML IV SCH (20:32)
[2020-01-02] MEDS: Famotidine/PF 20 mg/2ml Vial SLOW IVP SCH (20:40)
[2020-01-02] MEDS ORDERED: Cefepime 0.5 GM in Sodium Chloride 0.9% 100 ML IVPB SCH (21:00)
[2020-01-02] MEDS: Metoclopramide HCl 10 MG/2 ML VIAL IVP SCH (21:19)
[2020-01-03 05:01] LABS: Magnesium 1.8 mg/dL (1.6-2.6)
[2020-01-03 05:02] LABS: Iron 35 ug/dL (50-170); Iron Binding Capacity, Total 116 mcg/dL (265-497)
[2020-01-03] MEDS: Metoclopramide HCl 10 MG/2 ML VIAL IVP SCH (05:15)
[2020-01-03 07:14] LABS: Hemoglobin 8.3 g/dL (12.0-16.0); Mean Corpuscular HGB CONC 33.1 g/dL (32.0-36.0); Mean Corpuscular Hemoglobin 31.1 pg (27.0-31.0); Mean Corpuscular Volume 94.1 fL (78.0-98.0); Mean Platelet Volume 8.1 fL (7.4-10.4); Platelet Count 275 thou/uL (130-400); RBC Distribution Width 12.9 % (11.5-14.5); Red Blood Cell (RBC) Count 2.67 mill/uL (4.20-5.40); White Blood Cell (WBC) Count 10.2 thou/uL (4.8-10.8)
[2020-01-03 07:38] LABS: Albumin 2.1 g/dL (3.4-4.8); Anion Gap 16 mmol/L (10-20); BUN (Urea Nitrogen) 20 mg/dL (9.8-20.1); BUN/Creatinine Ratio 2.48; Calc. Creatinine Clearance 6 mL/min (70-130); Calcium 7.4 mg/dL (7.8-10.44); Carbon Dioxide 26 mmol/L (23-31); Chloride 97 mmol/L (98-107); Estimated GFR-MDRD 5; Glucose 174 mg/dL (80-115); Phosphorus 3.5 mg/dL (2.3-4.7); Potassium 3.1 mmol/L (3.5-5.1); Sodium 136 mmol/L (136-145)
[2020-01-03] MEDS: hydrALAZINE 25 MG TAB PO SCH ×3 (08:30→20:16)
[2020-01-03] MEDS: Pantoprazole 40 MG VIAL IVP SCH (10:00)
[2020-01-03] MEDS: Cefepime 1 GM in Sodium Chloride 0.9% 100 ML IVPB SCH (10:00)
[2020-01-03] MEDS: Metoprolol Tartrate 25 MG TAB PO SCH ×2 (10:09→20:16)
[2020-01-03] MEDS: Potassium Chloride 20 MEQ TAB PO SCH ×2 (10:30→15:29)
--- NOTE | 2020-01-03 11:14 | PRG ---
DATE OF SERVICE: 01/03/2020 SERVICE: Nephrology. SUBJECTIVE: A 64-year-old female with end-stage renal disease due to FSGS, on peritoneal dialysis, admitted due to intractable nausea and vomiting associated with poor oral intake and failure to thrive. There was a concern for peritonitis and patient was started on antibiotics. However, peritoneal fluid analysis is not consistent with peritonitis. Nausea has improved with Reglan commencement. OBJECTIVE: VITAL SIGNS: Temperature 99.0, pulse 86, respiratory rate 18, SpO2 of 96% on room air, blood pressure is 161/76. GENERAL: Chronically ill-looking female, fatigued, but in no obvious distress. Afebrile. Anicteric. Acyanotic. HEENT: Normocephalic, atraumatic. Oral mucosa is moist. CARDIOVASCULAR: Regular rhythm and rate with normal heart sounds 1 and 2. RESPIRATORY: Fair air entry bilateral, though diminished at both bases. GI: Full, soft, nontender, nondistended with normal bowel sounds. PD catheter noted. EXTREMITIES: Diffuse muscular atrophy noted. No edema or erythema was appreciated. END TRIMMER: Conscious, alert, oriented x3 with appropriate mental status. Cranial nerves 2 through 12 are grossly intact. DIAGNOSTIC DATA: CBC showed WBC count of 10.2, hemoglobin of 8.3, platelet of 275. Chemistry showed sodium 136, potassium 3.1, chloride 97, CO2 of 26, BUN 20, creatinine 8.08, glucose 174, calcium was 7.4, phosphorus 3.5, albumin 2.1. Iron chemistry showed serum iron 35, TIBC 116, saturation 30%, ferritin 508. ASSESSMENT: 1. Intractable nausea and vomiting with poor oral intake and failure to thrive. Etiology is unclear. Evaluation with upper endoscopy showed hiatal hernia, but otherwise normal findings. 2. Hypertension: Control is suboptimal. 3. Anemia in chronic kidney disease. 4. Protein-calorie malnutrition. 5. Hypoalbuminemia. 6. Bilateral pleural effusion. PLAN: 1. We will restart diet and advance as tolerated. 2. We will also start Nepro t.i.d. 3. Agree with partial parenteral nutrition as well. 4. We will start amlodipine 5 mg to get adequate BP control. 5. We will also start the patient on IV iron and Procrit for anemia in chronic kidney disease. Further treatment to follow depending on hospital course. Job ID: [id number]
[2020-01-03] MEDS: Promethazine HCl 25 MG in Sodium Chloride 0.9% 50 ML IVPB PRN (11:24)
--- NOTE | 2020-01-03 11:40 | PDOC.HOSPP ---
- Subjective Encounter Date: 01/03/20 Encounter Time: 11:38 Subjective: Ms. Jacobs was seen today in follow-up of chronic nausea. She continues to feel very nauseated, the phenergan with reglan is helpful but it is not relieving her symptoms completely. She denies any abdominal pain. - Objective Vital Signs & Weight: Vital Signs (12 hours) Temp Pulse Resp BP BP BP Pulse Ox 01/03/20 08:30 86 01/03/20 08:00 99.0 F 86 18 161/76 H 96 01/03/20 04:30 92 150/78 H 01/03/20 01:15 96 152/76 H 01/03/20 00:35 98 193/93 H 01/03/20 00:30 98.2 F 98 16 193/93 H 94 L Weight Admit Weight 124 lb 9.6 oz Weight 124 lb 9.6 oz I&O: 01/02/20 01/03/20 01/04/20 06:59 06:59 06:59 Intake Total 900.6 Output Total 0 Balance 900.6 Result Diagrams: 01/03/20 04:17 01/03/20 04:17 Hospitalist ROS - Medication Medications: Active Medications Generic Name Dose Route Start Last Admin Trade Name Freq PRN Reason Stop Dose Admin Famotidine 20 mg 01/01/20 21:00 01/02/20 20:40 Pepcid SLOW IVP 20 mg QPM SORIN Administration Hydralazine HCl 50 mg 01/03/20 09:00 01/03/20 08:30 Apresoline PO 50 mg TID SORIN Administration Promethazine HCl 25 mg/ Sodium 51 mls @ 204 mls/hr 01/02/20 12:01 01/03/20 11 :24 Chloride IVPB 51 mls Q6H PRN Administration Nausea/Vomiting Amino Acids/Electrolytes/Dextrose 1,000 mls @ 50 mls/hr 01/02/20 20:00 20:32 Clinimix E 4.25/5 IV 1,000 mls .Q20H SORIN Administration Cefepime HCl 1 gm/ Sodium 100 mls @ 200 mls/hr 01/03/20 09:00 01/03/20 10:00 Chloride IVPB 100 mls Q2DAYS SORIN Administration Labetalol HCl 20 mg 01/02/20 14:24 01/03/20 00:35 Normodyne SLOW IVP 20 mg Q4H PRN Administration SBP > 180 and HR >/= 70 Metoclopramide HCl 10 mg 01/02/20 22:00 01/03/20 05:15 Reglan IVP 10 mg Q8HR SORIN Administration Metoprolol Tartrate 25 mg 01/02/20 09:00 01/03/20 10:09 Lopressor PO 25 mg BID SORIN Administration Ondansetron HCl 4 mg 01/01/20 20:20 01/02/20 09:23 Zofran IVP 4 mg Q6H PRN Administration Nausea/Vomiting Pantoprazole Sodium 40 mg 01/02/20 09:00 01/03/20 10:00 Protonix IVP 40 mg DAILY SORIN Administration Sodium Chloride 10 ml 01/02/20 09:00 01/02/20 20:41 Flush - Normal Saline IVF 10 ml Q12HR SORIN Administration - Exam Eye: PERRL Heart: RRR, no murmur, no gallops, no rubs, normal peripheral pulses Respiratory: CTAB, no wheezes, no rales, no ronchi, normal chest expansion, no tachypnea, normal percussion Gastrointestinal: soft, non-tender, non-distended, normal bowel sounds, no palpable masses, no hepatomegaly Extremities: no cyanosis, no clubbing, no edema Hosp A/P (1) End stage renal disease on dialysis Code(s): N18.6 - END STAGE RENAL DISEASE; Z99.2 - DEPENDENCE ON RENAL DIALYSIS Status: Acute (2) Nausea & vomiting Code(s): R11.2 - NAUSEA WITH VOMITING, UNSPECIFIED Status: Acute (3) Hypertension Code(s): I10 - ESSENTIAL (PRIMARY) HYPERTENSION Status: Chronic - Plan * Chronic nausea- ? etiology-HIDA scan was negative * Her symptoms persists- therefore will consult GI * Hypokalmeia- cautiously replace potassium * ESRD- continue PD * HTN-blood pressure is a bit elevated-continue her home medications as well as PRN Hydralazine * will change reglan to PRN * Continue PPN for nutritional supplementation
[2020-01-03] MEDS ORDERED: Metoclopramide HCl 10 MG/2 ML VIAL IVP PRN ×2 (11:44→11:45)
[2020-01-03] MEDS: Potassium Chloride 20 MEQ in Premix Bag 1 BAG IVPB SCH ×2 (11:45→13:20)
[2020-01-03] MEDS: D5W-AA 4.25% with LYTES 1,000 ML IV SCH ×2 (16:18→20:55)
[2020-01-03] MEDS: Ondansetron PF 4 MG/2 ML Vial IVP SCH (20:16)
[2020-01-03] MEDS: Famotidine/PF 20 mg/2ml Vial SLOW IVP SCH (20:16)
[2020-01-03] MEDS ORDERED: Ondansetron HCl/PF 4 MG in Sodium Chloride 0.9% 50 ML IVPB SCH (21:00)
--- NOTE | 2020-01-04 01:24 | CON ---
DATE OF CONSULTATION: 01/03/2020 REASON FOR CONSULTATION: Chronic nausea and vomiting. CONSULTING PROVIDER: José Miguel Mcclure MD HISTORY OF PRESENT ILLNESS: The patient is a 64-year-old female with past medical history of focal segmental glomerulosclerosis with renal failure, now on peritoneal dialysis, hypertension, and GERD, presenting with complaints of chronic nausea and vomiting. She states that she has been having decreased appetite and dry mouth that has been present since at least August 2019, However, over the last 4 to 5 weeks, she has been having progressively worsening nausea and vomiting characterized as having 4 to 5 discrete episodes of nonbloody emesis per day, usually occurring between 4 to 7 p.m. at night. Upon speaking further with the patient, she states that in the morning she will feel well enough to eat some small amount of food (although limited by limited appetite), but as the day progresses, her nausea and vomiting will slowly return and get worse. She did not notice this increased nausea and vomiting until she was placed on peritoneal dialysis approximately 4 to 5 weeks ago. Currently, she does have an arteriovenous fistula on her left upper extremity, which was placed 2 weeks ago, but it is unclear if this has fully matured just yet. Otherwise, she states that she has had approximately 12- to 15-pound weight loss over the last 1 to 2 months and has significantly dry mouth with thickened oral secretions during this time period. She currently denies any fevers, chills, hematemesis, melena, hematochezia, dysphagia, odynophagia, or abdominal pain. Of note, the patient has been seen in the hospital on multiple different occasions for this same problem with her most recent admission to the hospital being discharged on December 11, 2019. During the course of that last hospitalization, she did have resolution of her nausea and vomiting with initiation of peritoneal dialysis, with the nausea felt to be due secondary to uremia. REVIEW OF SYSTEMS: A 10-category review of systems was obtained with all responses negative except for the pertinent positives as listed in HPI. PAST MEDICAL HISTORY: As per HPI. PAST SURGICAL HISTORY: Peritoneal dialysis port placement, arteriovenous fistula of the left antecubital fossa/left upper extremity, left ankle surgery, left hip replacement, cataract surgery, and cervical spine surgery with placement of a C5/C6 plate. FAMILY HISTORY: Denies any GI malignancies. SOCIAL HISTORY: Denies any tobacco, alcohol, or illicit drug use. HOME MEDICATIONS: Reviewed. ALLERGIES: NO KNOWN DRUG ALLERGIES. PHYSICAL EXAMINATION: VITAL SIGNS: Temperature 99, pulse 86, blood pressure 161/76, respiratory rate 18, and saturating 96% on room air. GENERAL: The patient was lying in bed, in mild distress. Alert and oriented x4. HEENT: Normocephalic and atraumatic. NECK: Supple. No JVD or scleral icterus noted. CARDIOVASCULAR: Tachycardic rate, but regular rhythm. No discernible murmurs, gallops, or rubs. RESPIRATORY: Clear to auscultation bilaterally with no discernible wheezes or rales. ABDOMEN: Normoactive bowel sounds. Soft. Mild tenderness to palpation in the periumbilical/suprapubic region. EXTREMITIES: No cyanosis, clubbing, or edema. LABORATORY DATA: CBC with a white blood cell count of 10.2, hemoglobin 8.3, hematocrit 25.1, and platelets 275. Chemistry with a sodium of 136, potassium 3.1, chloride 97, CO2 of 26, BUN 20, creatinine 8.08, glucose 174, AST 11, ALT less than 7, alkaline phosphatase 117, total bilirubin 0.4. Iron 35, ferritin 508, TIBC 116. CRP 2.47. IMAGING DATA: HIDA scan was obtained on January 02, 2020, which was normal. She had a CT of the brain performed on December 11, 2019, which was also normal. Upper endoscopy was performed on December 02, 2019, which showed the presence of a small hiatal hernia, but was otherwise normal. ASSESSMENT AND PLAN: The patient is a 64-year-old female with past medical history of focal segmental glomerulosclerosis with renal failure, on peritoneal dialysis, hypertension, and gastroesophageal reflux disease, presenting with persistent nausea and vomiting. 1. Persistent nausea and vomiting. a. The patient is presenting with worsening nausea and vomiting that has been present over the last 4 to 5 weeks, characterized as having approximately 4 to 5 discrete episodes of nonbloody emesis per day and usually occurring in the evening. Temporally, this was related to the initiation of peritoneal dialysis. However, upon further chart review, the patient had alleviation of her symptoms initially with the initiation of peritoneal dialysis. Analysis of peritoneal fluid thus far has been negative for overt pathogen. However, the patient has been placed on antibiotics as part of impaired treatment. Currently, her nausea is under fair control with the administration of both metoclopramide and Phenergan. However, given that both of these medications hit dopamine receptors in the brain, it could potentially increase her risk of extrapyramidal symptoms. Currently, the etiology of her nausea and vomiting is unclear, but the differential could include use of NSAIDs as an outpatient, use of beta-blockers (less likely), gastroparesis, non-ulcer dyspepsia, irritable bowel syndrome, inflammatory intraperitoneal disease, retroperitoneal fibrosis (less likely given lack of urinary difficulties), mesenteric ischemia, anxiety/depression, uremia, possible secondary hyperparathyroidism, heavy metal ingestion (the patient is on well water as an outpatient), acid reflux and/or gastrointestinal neoplasm. RECOMMENDATIONS: 1. I would recommend obtaining a gastric emptying study on this patient for possible gastroparesis contributing to her chronic nausea and vomiting. 2. I would defer to Nephrology Service for complications of peritoneal dialysis and/or secondary hyperparathyroidism. 3. I would continue PPI twice daily for possible acid reflux. 4. I will order a heavy metal screen for heavy metal poisoning. 5. I would discontinue the use of metoclopramide given that it hits the same receptors as Phenergan; instead, I would schedule the Zofran 4 mg t.i.d. and use Phenergan 12.5 mg for any breakthrough symptoms, we could also consider the use of 4 mg of dexamethasone to assist with symptomatic relief of her nausea/vomiting. We will continue to follow. Please call with any questions. Job ID: [id number]
[2020-01-04 04:56] LABS: Albumin 2.1 g/dL (3.4-4.8); Anion Gap 11 mmol/L (10-20); BUN (Urea Nitrogen) 24 mg/dL (9.8-20.1); BUN/Creatinine Ratio 3.21; Calc. Creatinine Clearance 7 mL/min (70-130); Calcium 7.5 mg/dL (7.8-10.44); Carbon Dioxide 28 mmol/L (23-31); Chloride 97 mmol/L (98-107); Estimated GFR-MDRD 5; Glucose 133 mg/dL (80-115); Potassium 3.3 mmol/L (3.5-5.1); Sodium 133 mmol/L (136-145)
[2020-01-04] MEDS ORDERED: Amlodipine 5 MG TAB PO SCH (05:30)
[2020-01-04] MEDS ORDERED: cloNIDine 0.2 MG TAB PO PRN (07:39)
[2020-01-04] MEDS ORDERED: EPOETIN ALFA-EPBX (ESRD) 4,000 UNIT/ML VIAL SC SCH (08:00)
[2020-01-04] MEDS: Sevelamer Carbonate 800 MG TAB PO SCH ×2 (08:00→13:33)
--- NOTE | 2020-01-04 08:23 | PRG ---
DATE OF SERVICE: 01/04/2020 SUBJECTIVE: Ms. 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 The patient has had episodes of nausea and vomiting for the last several months. This even started prior to the said peritoneal dialysis. However, in the last few days, she has been having nausea and vomiting, could hardly take anything p.o. For this reason, she was admitted for further management. We are following up this patient for her maintenance peritoneal dialysis. She is tolerating the said dialysis. PD fluid was sent and no evidence of any peritonitis was noted. Her PD fluid was also noted to be clear. No other new complaints today. Still having nausea and vomiting. According to the , just intake of small amounts of food makes her nauseated. OBJECTIVE: VITAL SIGNS: Blood pressure is noted at 197/93, heart rate 101, respiratory rate 18, and O2 saturation 95%. GENERAL: The patient is awake, alert, and comfortable, not in overt distress. SKIN: Adequate turgor. HEENT: Slightly pale conjunctivae. Anicteric sclerae. NECK: No neck mass. No carotid bruits. No JVD. CHEST: No deformities. LUNGS: Clear breath sounds. HEART: Normal sinus rhythm. No murmur. No gallops. No rubs. ABDOMEN: Globular, soft, and nontender. No masses. Positive for PD catheter. EXTREMITIES: No edema. No deformities. MEDICATIONS: Medications of January 04, 2020, reviewed. LABORATORY DATA: CT scan of the abdomen and pelvis done on January 01, 2020, showed large bilateral effusion with evidence of anasarca. There is a fluid noted that could be related to her peritoneal dialysis. January 02, 2020, hepatobiliary scan showed a normal exam. ASSESSMENT AND PLAN: 1. End-stage renal disease. Continue current peritoneal dialysis. No changes with the current PD regimen. She is by clinical assessment, is adequately dialyzed with the current peritoneal dialysis. 2. Anemia. Start Epogen 7500 units subcu every week. 3. Labile hypertension - fluctuating BP related to her poor p.o. intake of her medications. 4. Nausea and vomiting. Gastroenterology following for possible upper GI scan. Continue supportive care. Currently, on Zofran and Phenergan. Overall, prognosis remains guarded. Job ID: [id number]
[2020-01-04] MEDS: Ondansetron PF 4 MG/2 ML Vial IVP SCH ×3 (08:26→21:21)
[2020-01-04] MEDS: Pantoprazole 40 MG VIAL IVP SCH (08:26)
[2020-01-04] MEDS: hydrALAZINE 25 MG TAB PO SCH ×4 (09:00→21:21)
[2020-01-04] MEDS: Metoprolol Tartrate 25 MG TAB PO SCH ×3 (09:00→21:22)
--- NOTE | 2020-01-04 13:46 | NM ---
RADIONUCLIDE GASTRIC EMPTYING SCAN: HISTORY: Chronic nausea and vomiting RADIOPHARMACEUTICAL: 2 mCi technetium 99m sulfur colloid administered orally in pudding FINDINGS: Gastric emptying at different times is as follows: 1 hour: 61% 2 hours: 92% 3 hours: 96% 4 hours: 96% The calculated gastric emptying half-time [id number].
[2020-01-04] MEDS: Calcitriol 0.25 MCG CAP PO SCH ×2 (15:20)
--- NOTE | 2020-01-04 18:47 | PDOC.HOSPP ---
- Subjective Encounter Date: 01/04/20 Encounter Time: 18:45 Subjective: Ms. Jacobs was seen today in follow-up of chronic nausea. She has returned from the gastric emptying study, and says she continues to feel nauseated. She has not noted any improvement the the medication changes. - Objective Vital Signs & Weight: Vital Signs (12 hours) Temp Pulse Resp BP BP Pulse Ox 01/04/20 15:42 96 158/78 H 01/04/20 15:20 100 167/90 H 01/04/20 13:34 100 167/90 H 01/04/20 13:32 100 16 167/90 H 93 L 01/04/20 09:00 100 167/90 H 01/04/20 07:35 98.8 F 102 H 18 171/90 H 94 L Weight Admit Weight 124 lb 9.6 oz Weight 124 lb 9.6 oz I&O: 01/03/20 01/04/20 01/05/20 06:59 06:59 06:59 Intake Total 900.6 650 Output Total 0 1000 Balance 900.6 -350 Result Diagrams: 01/03/20 04:17 01/04/20 04:18 Hospitalist ROS - Medication Medications: Active Medications Generic Name Dose Route Start Last Admin Trade Name Freq PRN Reason Stop Dose Admin Calcitriol 0.25 mcg 01/04/20 09:00 01/04/20 15:20 Rocaltrol PO 0.25 mcg DAILY SORIN Administration Epoetin Naresh-epbx 7,500 unit 01/04/20 08:00 01/04/20 15:26 Retacrit SC 7,500 unit Q7D SORIN Administration Famotidine 20 mg 01/01/20 21:00 01/03/20 20:16 Pepcid SLOW IVP 20 mg QPM SORIN Administration Hydralazine HCl 50 mg 01/03/20 09:00 01/04/20 15:20 Apresoline PO Not Given TID SORIN Promethazine HCl 25 mg/ Sodium 51 mls @ 204 mls/hr 01/02/20 12:01 01/03/20 11 :24 Chloride IVPB 51 mls Q6H PRN Administration Nausea/Vomiting Amino Acids/Electrolytes/Dextrose 1,000 mls @ 50 mls/hr 01/02/20 20:00 20:55 Clinimix E 4.25/5 IV 1,000 mls .Q20H SORIN Administration Cefepime HCl 1 gm/ Sodium 100 mls @ 200 mls/hr 01/03/20 09:00 01/03/20 10:00 Chloride IVPB 100 mls Q2DAYS SORIN Administration Labetalol HCl 20 mg 01/02/20 14:24 01/03/20 00:35 Normodyne SLOW IVP 20 mg Q4H PRN Administration SBP > 180 and HR >/= 70 Metoprolol Tartrate 25 mg 01/02/20 09:00 01/04/20 13:34 Lopressor PO 25 mg BID SORIN Administration Ondansetron HCl 4 mg 01/03/20 21:00 01/04/20 15:24 Zofran IVP 4 mg TID SORIN Administration Pantoprazole Sodium 40 mg 01/02/20 09:00 01/04/20 08:26 Protonix IVP 40 mg DAILY SORIN Administration Sevelamer Carbonate 800 mg 01/04/20 08:00 01/04/20 13:33 Renvela PO 800 mg QAM-WM SORIN Administration Sodium Chloride 10 ml 01/02/20 09:00 01/04/20 08:26 Flush - Normal Saline IVF 10 ml Q12HR SORIN Administration - Exam Eye: PERRL Heart: RRR, no murmur, no gallops, no rubs, normal peripheral pulses Respiratory: CTAB, no wheezes, no rales, no ronchi Gastrointestinal: soft, non-tender, non-distended, normal bowel sounds, no palpable masses, no hepatomegaly Extremities: no cyanosis, no edema Hosp A/P (1) End stage renal disease on dialysis Code(s): N18.6 - END STAGE RENAL DISEASE; Z99.2 - DEPENDENCE ON RENAL DIALYSIS Status: Acute (2) Nausea & vomiting Code(s): R11.2 - NAUSEA WITH VOMITING, UNSPECIFIED Status: Acute (3) Hypertension Code(s): I10 - ESSENTIAL (PRIMARY) HYPERTENSION Status: Chronic - Plan * Chronic nausea- Will discuss with GI- Emptying scan appears unremarkable * Reglan has been discontinued, and Zofran has been scheduled in it's place along with Promethazine as needed * Hypokalmeia- replace potassium as needed * ESRD- continue PD * HTN-blood pressure is trending down * Continue PPN for nutritional supplementation
[2020-01-04] MEDS: Famotidine/PF 20 mg/2ml Vial SLOW IVP SCH (21:21)
[2020-01-04] MEDS: Mirtazapine 15 MG TAB PO SCH (21:22)
--- NOTE | 2020-01-04 22:22 | PRG ---
DATE OF SERVICE: 01/04/2020 SUBJECTIVE: The patient remains persistently nauseated. Subjectively, she feels it is better than before, although she is not eating much at all. She has no appetite. She denies having any pain. PHYSICAL EXAMINATION: VITAL SIGNS: Temperature is 98.9, blood pressure 173/91, pulse 105. GENERAL: She is alert, weak, but no distress. HEAD: Shows anicteric sclerae. Oropharynx is clear and moist. CV: Shows normal S1, S2. Regular rate and rhythm. CHEST: Shows breath sounds. ABDOMEN: Soft. No distention. No tenderness. No tympany. She has active bowel sounds. EXTREMITIES: Shows no edema. LABORATORY DATA: No labs today. IMAGING STUDIES: Gastric emptying scan shows 60% emptying at 1 hour and 92% by 2 hours. ASSESSMENT: 1. Chronic nausea. Negative EGD prior admission with negative HIDA scan and gastric emptying scan. I suspect nausea is likely related to systemic illness. The patient is currently on scheduled Zofran and Phenergan as needed. 2. Poor appetite and anorexia. RECOMMENDATIONS: 1. Continue with scheduled Zofran IV. 2. We will add mirtazapine 7.5 mg nightly, would advance as tolerated as this has both antiemetic affect and appetite stimulation. 3. Liquid nutrition and supplement in addition to whatever she can tolerate in term of regular diet. 4. We will follow. Job ID: [id number]
[2020-01-05 00:47] LABS: Cocaine Metabolite Screen Not Detected (NotDetected); Medtox Reader # READER 1; Phencyclidine (PCP) Not Detected (NotDetected); THC/Cannabinoid Screen Not Detected (NotDetected)
[2020-01-05 00:48] LABS: Amphetamine Not Detected (NotDetected); Barbiturates Screen Not Detected (NotDetected); Benzodiazepine Screen Not Detected (NotDetected); Medtox Control Line Valid? VALID (VALID); Methadone Not Detected (NotDetected); Methamphetamine Not Detected (NotDetected); Opiate Screen Not Detected (NotDetected); Oxycodone Screen Not Detected (NotDetected); Tricyclic Screen Not Detected (NotDetected)
[2020-01-05] MEDS: D5W-AA 4.25% with LYTES 1,000 ML IV SCH (04:30)
[2020-01-05 05:47] LABS: #Basophils 0.1 thou/uL (0.0-0.2); #Eosinphils 0.3 thou/uL (0.0-0.7); #Lymphocytes 2.1 thou/uL (1.20-3.40); #Monocytes 0.7 thou/uL (0.11-0.59); #Neutrophils 4.9 thou/uL (1.40-6.50); %Basophils 1.4 % (0.0-1.0); %Eosinophils 3.6 % (0.0-10.0); %Lymphocytes 26.1 % (21.0-51.0); %Neutrophils 60.9 % (42.0-75.0); Anion Gap 14 mmol/L (10-20); BUN (Urea Nitrogen) 24 mg/dL (9.8-20.1); Calc. Creatinine Clearance 8 mL/min (70-130); Calcium 7.5 mg/dL (7.8-10.44); Carbon Dioxide 26 mmol/L (23-31); Chloride 95 mmol/L (98-107); Estimated GFR-MDRD 6; Glucose 225 mg/dL (80-115); Hemoglobin 8.8 g/dL (12.0-16.0); Mean Corpuscular HGB CONC 32.7 g/dL (32.0-36.0); Mean Corpuscular Hemoglobin 31.1 pg (27.0-31.0); Mean Platelet Volume 7.8 fL (7.4-10.4); Platelet Count 271 thou/uL (130-400); Red Blood Cell (RBC) Count 2.83 mill/uL (4.20-5.40); Sodium 131 mmol/L (136-145); White Blood Cell (WBC) Count 8.1 thou/uL (4.8-10.8)
[2020-01-05 08:01] VITALS: BP 170/81; TEMP 99.1
[2020-01-05] MEDS: Sevelamer Carbonate 800 MG TAB PO SCH (09:00)
--- NOTE | 2020-01-05 09:03 | PRG ---
DATE OF SERVICE: 01/05/2020 SERVICE: Renal Medicine. SUBJECTIVE: Ms. Jacobs is a 64-year-old white female with ESRD from biopsy-proven FSGS. Currently, on CCPD. Tolerating peritoneal dialysis last night. She was initially admitted for nausea and vomiting. Several imaging has been done and they have all been negative. She had a gastric emptying scan, which shows a 60% emptying in 1 hour and almost 92% by 2 hours. GI is following. Recommendation is to have mirtazapine 7.5 mg at bedtime. No other complaints today. The patient is wanting to go home. OBJECTIVE: VITAL SIGNS: Blood pressure is 170/81, heart rate 99, respiratory rate 18, temperature 99.1, and pulse ox 95%. GENERAL: The patient is awake, alert, comfortable, not in distress. SKIN: Adequate turgor. HEENT: She has pinkish conjunctivae. Anicteric sclerae. No neck mass. No carotid bruits. No JVD. CHEST: No deformities. LUNGS: Clear breath sounds. No wheezing. No crackles. HEART: Normal sinus rhythm. No murmurs, no gallops, no rubs. ABDOMEN: Globular, soft, nontender. No masses. Positive for PD catheter. EXTREMITIES: No edema. No deformities. MEDICATIONS: January 05, 2020, reviewed. LABORATORY DATA: Laboratories of January 05, 2020; white count 8.1, hemoglobin 8.8. Sodium 131, potassium 4, chloride 95, carbon dioxide 26, BUN 24, creatinine 6.48, glucose 225, calcium 7.5. ASSESSMENT AND PLAN: 1. Nausea vomiting-imaging studies have been negative. Symptomatic/supportive care. Mirtazapine most recently added by GI. 2. End-stage renal disease, stable, tolerating current CCPD regimen. No changes will be made with the current peritoneal dialysis. Tolerating ultrafiltration. 3. Anemia, on weekly Epogen. Continue current management. 4. Hypertension. Continue current BP medications. Job ID: [id number]
[2020-01-05] MEDS: hydrALAZINE 25 MG TAB PO SCH (09:09)
[2020-01-05] MEDS: Cefepime 1 GM in Sodium Chloride 0.9% 100 ML IVPB SCH (09:09)
[2020-01-05] MEDS: Pantoprazole 40 MG VIAL IVP SCH (09:10)
[2020-01-05] MEDS: Ondansetron PF 4 MG/2 ML Vial IVP SCH (09:10)
[2020-01-05] MEDS: Metoprolol Tartrate 25 MG TAB PO SCH (09:10)
[2020-01-05] MEDS: Mirtazapine 15 MG TAB PO SCH (09:52)
[2020-01-05] MEDS: Calcitriol 0.25 MCG CAP PO SCH (09:53)
--- NOTE | 2020-01-05 13:00 | PDOC.HOSPP ---
- Subjective Encounter Date: 01/05/20 Encounter Time: 12:58 Subjective: Ms. Jacobs was seen today in follow-up of chronic nausea. She says she is doing better today. She would like to go home. - Objective Vital Signs & Weight: Vital Signs (12 hours) Temp Pulse Resp BP BP Pulse Ox 01/05/20 09:09 99 170/81 H 01/05/20 08:00 99.1 F 99 18 170/81 H 95 01/05/20 05:20 179/86 H 01/05/20 04:00 98.7 F 98 16 179/86 H 94 L Weight Admit Weight 124 lb 9.6 oz Weight 124 lb 9.6 oz I&O: 01/04/20 01/05/20 01/06/20 06:59 06:59 06:59 Intake Total 650 Output Total 1000 Balance -350 Result Diagrams: 01/05/20 04:23 01/05/20 04:23 Hospitalist ROS - Medication Medications: Active Medications Generic Name Dose Route Start Last Admin Trade Name Freq PRN Reason Stop Dose Admin Calcitriol 0.25 mcg 01/04/20 09:00 01/05/20 09:53 Rocaltrol PO 0.25 mcg DAILY SORIN Administration Clonidine 0.2 mg 01/04/20 07:39 01/05/20 05:20 Catapres PO 0.2 mg BIDPRN PRN Administration Hypertension Epoetin Naresh-epbx 7,500 unit 01/04/20 08:00 01/04/20 15:26 Retacrit SC 7,500 unit Q7D SORIN Administration Famotidine 20 mg 01/01/20 21:00 01/04/20 21:21 Pepcid SLOW IVP 20 mg QPM SORIN Administration Hydralazine HCl 50 mg 01/03/20 09:00 01/05/20 09:09 Apresoline PO 50 mg TID SORIN Administration Promethazine HCl 25 mg/ Sodium 51 mls @ 204 mls/hr 01/02/20 12:01 01/03/20 11 :24 Chloride IVPB 51 mls Q6H PRN Administration Nausea/Vomiting Amino Acids/Electrolytes/Dextrose 1,000 mls @ 50 mls/hr 01/02/20 20:00 04:30 Clinimix E 4.25/5 IV 1,000 mls .Q20H SORIN Administration Cefepime HCl 1 gm/ Sodium 100 mls @ 200 mls/hr 01/03/20 09:00 01/05/20 09:09 Chloride IVPB 100 mls Q2DAYS SORIN Administration Labetalol HCl 20 mg 01/02/20 14:24 01/03/20 00:35 Normodyne SLOW IVP 20 mg Q4H PRN Administration SBP > 180 and HR >/= 70 Metoprolol Tartrate 25 mg 01/02/20 09:00 01/05/20 09:10 Lopressor PO 25 mg BID SORIN Administration Mirtazapine 7.5 mg 01/04/20 21:00 01/05/20 09:52 Remeron PO 7.5 mg HS SORIN Administration Ondansetron HCl 4 mg 01/03/20 21:00 01/05/20 09:10 Zofran IVP 4 mg TID SORIN Administration Pantoprazole Sodium 40 mg 01/02/20 09:00 01/05/20 09:10 Protonix IVP 40 mg DAILY SORIN Administration Sevelamer Carbonate 800 mg 01/04/20 08:00 01/05/20 09:00 Renvela PO 800 mg QAM-WM SORIN Administration Sodium Chloride 10 ml 01/02/20 09:00 01/05/20 09:10 Flush - Normal Saline IVF 10 ml Q12HR SORIN Administration - Exam Eye: PERRL Heart: RRR, no murmur, no gallops, no rubs, normal peripheral pulses Respiratory: CTAB, no wheezes, no rales, no ronchi, normal chest expansion, no tachypnea, normal percussion Gastrointestinal: soft, non-tender, non-distended, normal bowel sounds, no palpable masses, no hepatomegaly Extremities: no cyanosis, no clubbing, no edema Hosp A/P (1) End stage renal disease on dialysis Code(s): N18.6 - END STAGE RENAL DISEASE; Z99.2 - DEPENDENCE ON RENAL DIALYSIS Status: Acute (2) Nausea & vomiting Code(s): R11.2 - NAUSEA WITH VOMITING, UNSPECIFIED Status: Acute (3) Hypertension Code(s): I10 - ESSENTIAL (PRIMARY) HYPERTENSION Status: Chronic - Plan * Chronic nausea- GI recommnedation were noted * She has improved with the addition of Mirtazapine * She is stable for discharge home
--- NOTE | 2020-01-06 02:48 | DIS ---
DATE OF ADMISSION: 01/01/2020 DATE OF DISCHARGE: 01/05/2020 PRIMARY CARE PHYSICIAN: Brie Phillips MD DISCHARGE DISPOSITION: Home. DISCHARGE DIAGNOSES: 1. Chronic nausea. 2. End-stage renal disease, on peritoneal dialysis. 3. Hypertension. 4. History of focal segmental glomerulosclerosis. 5. History of cataract surgery. DISCHARGE MEDICATIONS: Include; 1. Mirtazapine 7.5 mg at bedtime was added. 2. Zofran 4 mg t.i.d. 3. Phenergan 25 mg q.6 hours as needed. 4. Metoprolol tartrate 25 mg twice daily. 5. Calcitriol 0.25 mcg p.o. daily. 6. Renvela 800 mg daily. 7. Omeprazole 20 mg daily. 8. Hydralazine 50 mg twice daily. 9. Clonidine 0.2 mg p.o. twice a day. PROCEDURES DONE DURING ADMISSION: The patient had a CT scan of the abdomen and pelvis, in which the patient had a large bilateral pleural effusion with evidence of anasarca and edema change in the subcutaneous tissue indicating fluid overload. The patient had a gastric emptying test, which was negative for gastroparesis. CODE STATUS: Full code. ALLERGIES: NO KNOWN DRUG ALLERGIES. HOSPITAL COURSE: Ms. Jacobs is a pleasant 64-year-old female, who presented to the emergency room with essentially failure to thrive and chronic nausea. She was admitted to the hospital after having a CT scan, which was essentially negative for any intraabdominal processes, but showed some bilateral pleural effusions. She had a HIDA scan, which was negative and GI was consulted and underwent a gastric emptying test, which was also essentially negative. She had a recent upper endoscopy, which was also negative other than just a hiatal hernia. It is felt that the chronic nausea is likely due to her chronic medical illnesses. She was placed on scheduled Zofran as well as mirtazapine at bedtime. She had good results with this and was able to eat some breakfast as well as taken some liquids and fluids and was actually asking to go home by the time of discharge and is being discharged home to have close followup with Dr. Brie Phillips in 1 week and also with her [employer] as scheduled. Job ID: [id number]
[2020-01-06 22:07] LABS: Arsenic - Blood 7 ug/L (2-23); Lead - Blood None Detected ug/dL (0-4); Mercury - Blood None Detected ug/L (0.0-14.9)
== END 2020-01-05 14:27 | disposition home or self-care (01) | DRG 391 ==
LOC: ERS 16:20 → ONC 21:52
PROVIDERS: ADMIT Internal Medicine; ATTEND Internal Medicine
PROC: 3E1M39Z Irrigation of Peritoneal Cavity using Dialysate, Percutaneous Approach (ICD-10-PCS; principal; 2020-01-01)
DX: R11.0 Nausea (principal); N18.6 End stage renal disease; E43 Unspecified severe protein-calorie malnutrition; J90 Pleural effusion, not elsewhere classified; Z68.1 Body mass index [BMI] 19.9 or less, adult; K44.9 Diaphragmatic hernia without obstruction or gangrene; E83.42 Hypomagnesemia; E78.5 Hyperlipidemia, unspecified; D63.1 Anemia in chronic kidney disease; K21.9 Gastro-esophageal reflux disease without esophagitis; E87.6 Hypokalemia; E86.0 Dehydration; Z96.642 Presence of left artificial hip joint; Z99.2 Dependence on renal dialysis; Z98.42 Cataract extraction status, left eye; Z98.41 Cataract extraction status, right eye; N26.9 Renal sclerosis, unspecified; I10 Essential (primary) hypertension
CPT/HCPCS: 36415; 74177; 78227; 78264; 80048; 80053; 80069; 80306; 82175; 82306; 82728; 82945; 83540; 83550; 83655; 83690; 83735; 83825; 84100; 84157; 84484; 85025; 85027; 85060; 85652; 86140; 87070; 87205; 89051; 90471; 90670; 90945; 93005; 94760; 96361; 96365; 96374; 96375; A9537; A9541; C9113; G0009; G0257; J0692; J0696; J2405; J2550; J2765; J3475; J3480; J3490; Q0162; Q5105; Q9967; S0028

== ENCOUNTER 2020-01-12 12:43 | Inpatient (IN) | payer MEDICARE ==
[2020-01-12 13:12] LABS: #Basophils 0.1 thou/uL (0.0-0.2); #Eosinphils 0.1 thou/uL (0.0-0.7); #Lymphocytes 2.3 thou/uL (1.20-3.40); #Monocytes 0.5 thou/uL (0.11-0.59); #Neutrophils 4.2 thou/uL (1.40-6.50); %Basophils 0.9 % (0.0-1.0); %Eosinophils 1.9 % (0.0-10.0); %Lymphocytes 31.3 % (21.0-51.0); %Monocytes 7.1 % (0.0-10.0); %Neutrophils 58.7 % (42.0-75.0); Hemoglobin 9.8 g/dL (12.0-16.0); Mean Corpuscular Hemoglobin 31.6 pg (27.0-31.0); Mean Corpuscular Volume 92.9 fL (78.0-98.0); Mean Platelet Volume 7.3 fL (7.4-10.4); Platelet Count 397 thou/uL (130-400); RBC Distribution Width 13.4 % (11.5-14.5); Red Blood Cell (RBC) Count 3.09 mill/uL (4.20-5.40); White Blood Cell (WBC) Count 7.2 thou/uL (4.8-10.8)
[2020-01-12 13:39] LABS: ALT (SGPT) Less than 7 U/L (8-55); AST (SGOT) 10 U/L (5-34); Albumin 2.1 g/dL (3.4-4.8); Alkaline Phosphatase 118 U/L (40-110); Anion Gap 13 mmol/L (10-20); BUN (Urea Nitrogen) 25 mg/dL (9.8-20.1); Bilirubin, Total 0.4 mg/dL (0.2-1.2); Calc. Creatinine Clearance 0 mL/min (70-130); Calcium 7.8 mg/dL (7.8-10.44); Carbon Dioxide 30 mmol/L (23-31); Chloride 95 mmol/L (98-107); Estimated GFR-MDRD 5; Globulin 2.9 g/dL (2.4-3.5); Glucose 136 mg/dL (80-115); Sodium 135 mmol/L (136-145)
[2020-01-12 13:41] LABS: Potassium 2.7 mmol/L (3.5-5.1)
[2020-01-12] MEDS ORDERED: Potassium Chloride 20 MEQ TAB ONE (15:05)
[2020-01-12] MEDS ORDERED: Ondansetron PF 4 MG/2 ML Vial ONE (15:10)
[2020-01-12] MEDS ORDERED: Potassium Chloride 40 MEQ in Sodium Chloride 0.9% 500 ML IVPB SCH (15:15)
[2020-01-12] MEDS ORDERED: Potassium Chloride 20 MEQ TAB PO SCH (15:15)
--- NOTE | 2020-01-12 18:13 | PDOC.HHP ---
Hospitalist HPI - History of Present Illness nausea/vomiting History of Present Illness: This is a 64 year old female with past medical history of ESRD secondary to FSGS on peritoneal dialysis who presents to the emergency room with intractable nausea/vomiting for three months with a 40-50 lb weight loss. The patient reports that she started having a poor appetite since last September. At the time her kidneys were noted to be slowly declining. In November she started having nausea and vomiting and was given a trial of hemodialysis but she was not able to tolerate it. She had a CT ab/pelvis which showed large bilateral pleural effusions secondary to fluid overload and therefore was switched to peritoneal dialysis on December 04. She has been doing that for two weeks but continued to have persistent nausea and vomiting. She was admitted on 12/05 and had unremarkable EGD, HIDA scan, and gastric emptying study. She was discharged on 01/05 with mirtazapine and scheduled zofran with improvement. The patient states she improved for one day and her vomiting resumed. SHe was given sublingual zofran but threw all that up. SHe was also prescribed fluconazole for thrush, but was only able to take six doses since that made her vomit as well. She has constant nausea that gets worse with oral intake. She states that her vomit is green in appearance. Her nausea is only improved with IV antiemetic medication . She describe a feeling "like something is stuck in my chest." She also describes a burning sensation in her esophagus. She denies hematemesis, diarrhea, constipation, abdominal pain, chest pain, shortness of breath, headache, diaphoresis or fever. ED Course: The patient presented with normal vitals. EKG showed nonspecific T wave abnormality. The patient was found to have low potassium of 2.7. She was given 60 meq of oral potassium which she vomited. Followed with 500 mL IV KCl/NS and IV zofran. The patient vomited four times while in the ED and reports constant nausea at this time. Hospitalist ROS - Review of Systems Constitutional: reports: chills. denies: fever, sweats Eyes: denies: pain, vision change ENT: denies: ear pain Respiratory: denies: cough, shortness of breath Cardiovascular: denies: chest pain, edema Gastrointestinal: reports: nausea (constant), vomiting. denies: abdominal pain , diarrhea, constipation, hematochezia Genitourinary: denies: dysuria, hematuria All other systems reviewed; all pertinent +/- noted in HPI/Subj - Medication Medications: Active Medications Generic Name Dose Route Start Last Admin Trade Name Freq PRN Reason Stop Dose Admin Potassium Chloride 40 meq/ 520 mls @ 0 mls/hr 01/12/20 15:15 01/12/20 17:12 Sodium Chloride IVPB 01/12/20 20:00 Not Given NOW SORIN As Directed Home Medications: -Docusate Sodium 100 mg PO DAILY -Clonidine 0.2 mg PO BID PRN -Hydralazine 50 mg PO BID -Sevelamer Carbonate 800 mg PO QAM-WM -Calcitriol 0.25 mcg PO DAILY -Metoprolol Tartrate 25 mg PO BID -Mirtazapine 7.5 mg PO HS -Promethazine 25 mg PO Q6HR PRN Hospitalist History - Past Medical History Source: patient, family Cardiac: reports: HTN Renal/: reports: Chronic renal failure (FSGS- on peritoneal dialysis) - Past Surgical History Other Surgical History: Orthopedic surgery Left hip surgery Left ankle surgery Spinal surgery PD port to LLQ AV fistula in left antecubital fossa - Family History Family History: reports: cancer (Mother- glioblastoma; Brother- prostate), cardiac disorder (brother CAD; Father CAD) Other Family History: Father- Parkinson's Disease - Social History Smoking Status: Never smoker Alcohol: reports: None Drugs: reports: none Living Situation: With Family Activity level: uses cane/walker - Exam General - other findings: bilateral cheeks swollen and slightly red Eye: PERRL ENT: normocephalic atraumatic ENT - other findings: thrush Neck: supple, no JVD, no lymphadenopathy, no carotid bruit Heart: RRR, no murmur, no gallops, no rubs, normal peripheral pulses Respiratory: CTAB, no wheezes, no rales, no ronchi Gastrointestinal: soft, non-tender, non-distended, normal bowel sounds, no palpable masses, no hepatomegaly, no splenomegaly, no bruit Gastrointestinal - other findings: Peritoneal dialysis port in place LLQ. No erythema or discharge from site. Extremities: no edema Neurological: cranial nerve grossly intact Musculoskeletal: normal tone Psychiatric: normal affect, normal behavior, A&O x 3 Hospitalist Results - Labs Result Diagrams: 01/12/20 13:01 01/12/20 13:01 Lab results: WBC 7.2 thou/uL (4.8-10.8) 01/12/20 13:01 Hgb 9.8 g/dL (12.0-16.0) L 01/12/20 13:01 Hct 28.7 % (36.0-47.0) L 01/12/20 13:01 MCV 92.9 fL (78.0-98.0) 01/12/20 13:01 Plt Count 397 thou/uL (130-400) 01/12/20 13:01 Neutrophils % 58.7 % (42.0-75.0) 01/12/20 13:01 Sodium 135 mmol/L (136-145) L 01/12/20 13:01 Potassium 2.7 mmol/L (3.5-5.1) L* 01/12/20 13:01 Chloride 95 mmol/L (98-107) L 01/12/20 13:01 Carbon Dioxide 30 mmol/L (23-31) 01/12/20 13:01 BUN 25 mg/dL (9.8-20.1) H 01/12/20 13:01 Creatinine 7.80 mg/dL (0.6-1.1) H 01/12/20 13:01 Glucose 136 mg/dL (80-115) H 01/12/20 13:01 Lactic Acid 1.0 mmol/L (0.5-2.2) 01/12/20 13:02 Calcium 7.8 mg/dL (7.8-10.44) 01/12/20 13:01 Total Bilirubin 0.4 mg/dL (0.2-1.2) 01/12/20 13:01 AST 10 U/L (5-34) 01/12/20 13:01 ALT Less than 7 U/L (8-55) L 01/12/20 13:01 Alkaline Phosphatase 118 U/L (40-110) H 01/12/20 13:01 Troponin I 0.015 ng/mL (< 0.028) 01/12/20 13:01 Serum Total Protein 5.0 g/dL (6.0-8.3) L 01/12/20 13:01 Albumin 2.1 g/dL (3.4-4.8) L 01/12/20 13:01 Hospitalist H&P A/P - Plan Plan: This is a 64 year old female with past medical history of ESRD secondary to FSGS on peritoneal dialysis who presents to the emergency room with intractable nausea/vomiting, 40 pound weight loss #Intractable nausea/vomiting #ESRD secondary to FSGS on peritoneal dialysis #Severe Protein Calorie Malnutrition #Weight Loss #Possible GERD - reports a sensation of foreign body in her throat, could be globus sensation from GERD. Will start IV protonix - will do scheduled zofran TID. Try compazine prn, phenergan prn - will consult nephrology with regards to peritoneal dialysis - will do trial of TPN since this it seemed to help her appetite last time #Hypokalemia - potassium 2.7, given 40 meq of potassium, will recheck BMP #Hyponatremia - sodium 135, likely from vomiting. Will monitor #Hypertension - resume home medications #Vitamin D deficiency - resume calcitriol, recheck vitamin D levels in the morning #ANemia #History of B12 deficiency - will repeat vitamin B12 levels Code status: full code
[2020-01-12] MEDS ORDERED: cloNIDine 0.2 MG TAB PO PRN (18:44)
[2020-01-12] MEDS ORDERED: Promethazine 25 MG TAB PO PRN (18:44)
[2020-01-12] MEDS ORDERED: Promethazine HCl 25 MG/ML VIAL IM/IV PRN (20:24)
[2020-01-12] MEDS ORDERED: Prochlorperazine 10 MG/2 ML VIAL IM PRN (20:24)
[2020-01-12] MEDS ORDERED: Pantoprazole 40 MG VIAL IVP SCH (21:00)
[2020-01-12] MEDS ORDERED: Mirtazapine 15 MG TAB PO SCH (21:00)
[2020-01-12] MEDS ORDERED: Promethazine HCl 25 MG in Sodium Chloride 0.9% 50 ML IVPB PRN (21:47)
[2020-01-12 21:58] LABS: Anion Gap 12 mmol/L (10-20); BUN (Urea Nitrogen) 25 mg/dL (9.8-20.1); Calc. Creatinine Clearance 6 mL/min (70-130); Calcium 7.5 mg/dL (7.8-10.44); Carbon Dioxide 28 mmol/L (23-31); Chloride 97 mmol/L (98-107); Estimated GFR-MDRD 5; Glucose 119 mg/dL (80-115); Potassium 3.3 mmol/L (3.5-5.1); Sodium 134 mmol/L (136-145)
[2020-01-12] MEDS: hydrALAZINE 25 MG TAB PO SCH (22:34)
[2020-01-12] MEDS: Metoprolol Tartrate 25 MG TAB PO SCH (22:35)
[2020-01-13] MEDS ORDERED: Potassium Chloride 40 MEQ in Premix Bag 1 BAG IVPB SCH (04:45)
[2020-01-13] MEDS ORDERED: Potassium Chloride 40 MEQ in Sodium Chloride 0.9% 250 ML 250 ML IVPB SCH (04:45)
[2020-01-13] MEDS: Ondansetron PF 4 MG/2 ML Vial IVP SCH ×3 (05:00→08:11)
[2020-01-13] MEDS ORDERED: Fluconazole In NaCl,Iso-Osm 100 MG in Premix Bag 1 BAG IVPB SCH (06:00)
[2020-01-13] MEDS ORDERED: Fluconazole In NaCl,Iso-Osm 100 MG in Admixture Fee 1 EACH IVPB SCH ×2 (06:30)
[2020-01-13] MEDS: Metoprolol Tartrate 25 MG TAB PO SCH ×2 (08:11→20:28)
[2020-01-13] MEDS: Calcitriol 0.25 MCG CAP PO SCH (08:11)
[2020-01-13] MEDS: Sevelamer Carbonate 800 MG TAB PO SCH (08:11)
[2020-01-13] MEDS: hydrALAZINE 25 MG TAB PO SCH ×2 (08:11→20:28)
[2020-01-13] MEDS: Docusate 100 MG CAP PO SCH (08:12)
[2020-01-13] MEDS ORDERED: Epoetin (ESRD) 20,000 UNITS/ML SC SCH (08:30)
--- NOTE | 2020-01-13 08:35 | PRG ---
DATE OF SERVICE: 01/13/2020 SUBJECTIVE: Ms. Jacobs is a 64-year-old white female with known history of ESRD secondary to biopsy-proven FSGS, currently on peritoneal dialysis. The patient was again readmitted due to the persistent nausea and vomiting. She is unable to take anything p.o. Her description is she mention just taking two morsels of food makes her nauseated and she starts vomiting. She has no significant weight in the last several weeks about 40 to 50 pounds. She was admitted about a week ago and she was started on mirtazapine in the hope that it will stimulate her appetite and improve the nausea. She has had several GI workup and they have all been negative. Her last workup on January 04, 2020, was a gastric emptying nuclear medicine, which was essentially normal. Please note, she has also had a CT scan of the abdomen and pelvis as well as an upper GI endoscopy. At one time, we thought that the nausea and vomiting maybe related to a brain lesion. For that reason, on December 11, 2019, she underwent a CT scan of the brain, which showed no acute intracranial process. Due to the volume depletion, the patient has been readmitted for IV hydration. I have started her on lactated Ringer's solution. A GI consult will be redone again. She tolerated the peritoneal dialysis last night. OBJECTIVE: VITAL SIGNS: Blood pressure is noted at 148/72, heart rate 79, respiratory rate 16, temperature 97.8, and pulse ox 95%. GENERAL: Noted to be awake, supine, comfortable, not in overt distress. SKIN: Decreased turgor. HEENT: She has a slightly pale conjunctivae. Anicteric sclerae. NECK: No neck mass. No carotid bruits. No JVD. CHEST: No deformities. LUNGS: Clear breath sounds. HEART: Normal sinus rhythm. No murmur. No gallops. No rubs. ABDOMEN: Globular, soft, and nontender. No masses. EXTREMITIES: No edema. No deformities. Please note, she has a PD catheter. MEDICATIONS: Medications of January 13, 2020, were reviewed. LABORATORY DATA: Laboratories of January 12, 2020; white count 7.2, hemoglobin 9.8. Sodium 134, potassium 3.3, chloride 97, carbon dioxide 28, BUN 25, creatinine 7.84, glucose 118, and calcium 7.5. ASSESSMENT AND PLAN: 1. Persistent nausea and vomiting - we will reconsider a GI consult. We have also increased mirtazapine to 15 mg tablet daily. 2. End-stage renal disease, stable. We will use a 1.5% PD solution to minimize ultrafiltration with this patient in a background of decreased p.o. intake and a possible volume depletion. We will continue current CCPD regimen. The only difference is, we are using 1.5% PD solution. 3. Chronic anemia. Start weekly Epogen at 7500 units subcu weekly. Continue supportive care with this patient. Job ID: [id number]
[2020-01-13] MEDS ORDERED: Folic Acid/Vit B Comp W-C PO SCH (09:00)
[2020-01-13] MEDS ORDERED: Folic Acid 0.4 MG in Admixture Fee 1 EACH SC SCH (09:00)
[2020-01-13] MEDS: Potassium Chloride 20 MEQ in Lactated Ringer's 1,000 ML IV SCH ×2 (09:43→20:27)
[2020-01-13] MEDS ORDERED: EPOETIN ALFA-EPBX (ESRD) 4,000 UNIT/ML VIAL SC SCH (12:00)
--- NOTE | 2020-01-13 17:05 | PDOC.HOSPP ---
- Subjective Encounter Date: 01/13/20 Encounter Time: 10:00 Subjective: THe patient's nausea has improved. She would like to try a full liquid diet today. She has had no vomiting. Per nephrology, plan to change her peritoneal dialysis solution Still feels small lump like sensation in her chest. She does not want chest CT - Objective Vital Signs & Weight: Vital Signs (12 hours) Temp Pulse Resp BP Pulse Ox 01/13/20 16:35 98.1 F 84 16 145/80 H 96 01/13/20 11:02 98.1 F 73 16 142/73 H 96 01/13/20 08:10 97.8 F 79 16 148/72 H 95 Weight Admit Weight 113 lb 4.8 oz Weight 113 lb 14.4 oz Result Diagrams: 01/12/20 13:01 01/12/20 21:31 Hospitalist ROS - Review of Systems Constitutional: denies: fever, chills - Medication Medications: Active Medications Generic Name Dose Route Start Last Admin Trade Name Freq PRN Reason Stop Dose Admin Calcitriol 0.25 mcg 01/13/20 09:00 01/13/20 08:11 Rocaltrol PO 0.25 mcg DAILY SORIN Administration Docusate Sodium 100 mg 01/13/20 09:00 01/13/20 08:12 Colace PO 100 mg DAILY SORIN Administration Epoetin Naresh-epbx 7,500 unit 01/13/20 12:00 01/13/20 14:05 Retacrit SC 7,500 unit Q7D SORIN Administration Hydralazine HCl 50 mg 01/12/20 21:00 01/13/20 08:11 Apresoline PO 50 mg BID SORIN Administration Promethazine HCl 25 mg/ Sodium 51 mls @ 204 mls/hr 01/12/20 21:47 01/12/20 22 :31 Chloride IVPB 51 mls Q6H PRN Administration Nausea/Vomiting Fluconazole/Sodium Chloride 50 mls @ 100 mls/hr 01/13/20 06:30 01/13/20 06:45 100 mg/ Miscellaneous IVPB 50 mls Medication 0630 SORIN Administration Potassium Chloride 20 meq/ 1,010 mls @ 100 mls/hr 01/13/20 08:15 01/13/20 09: 43 Lactated Ringer's IV 1,010 mls .Q10H6M SORIN Administration Metoprolol Tartrate 25 mg 01/12/20 21:00 01/13/20 08:11 Lopressor PO 25 mg BID SORIN Administration Ondansetron HCl 4 mg 01/12/20 19:00 01/13/20 08:11 Zofran IVP 4 mg Q8H SORIN Administration Pantoprazole Sodium 40 mg 01/12/20 21:00 01/12/20 22:34 Protonix IVP 40 mg 2100 SORIN Administration Sevelamer Carbonate 800 mg 01/13/20 08:00 01/13/20 08:11 Renvela PO Not Given QAM-WM SORIN Sodium Chloride 10 ml 01/13/20 09:00 01/13/20 08:17 Flush - Normal Saline IVF Not Given Q12HR SORIN Vitamin B Complex/Vit C/Folic Acid 1 tab 01/13/20 09:00 01/13/20 08:20 Nephro-Thais Tablet PO 1 tab DAILY SORIN Administration - Exam General Appearance: NAD, awake alert Eye: PERRL, anicteric sclera ENT: normocephalic atraumatic, no oropharyngeal lesions Neck: supple, symmetric, no JVD Heart: RRR, no murmur, no gallops, no rubs Respiratory: CTAB, no wheezes, no rales, no ronchi Gastrointestinal: soft, non-tender, non-distended Gastrointestinal - other findings: peritoneal dialysis catheter in place Extremities: no cyanosis, no clubbing, no edema Hosp A/P - Plan This is a 64 year old female with past medical history of ESRD on peritoneal dialysis, hypertension who presented with intractable nausea and vomiting #Intractable nausea/vomiting #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 Compazine and phenergan are ordered prn - advance diet to full liquid diet - GI consulted, added dronabinol - nephrology consulted for ESRD, changed her PD solution to 1.5% - will do nutrition consult as well #Glossitis - likely from folate deficiency - vitamin B12 levels normal -vitamin B1 and B6 levels pending #Folate Deficiency Anemia #Anemia of chronic disease - folate level low, started folic acid 1 mg daily - #Hypokalemia - potassium increased to 3.3, will recheck BMP today #Hyponatremia - sodium was 135, repeat BMP today #Hypertension - continue oral hydralazine #Vitamin D deficiency - continue calcitriol
[2020-01-13] MEDS: Dronabinol 2.5 MG CAP PO SCH (17:22)
[2020-01-13 17:54] LABS: Anion Gap 13 mmol/L (10-20); BUN (Urea Nitrogen) 22 mg/dL (9.8-20.1); Calc. Creatinine Clearance 6 mL/min (70-130); Calcium 7.7 mg/dL (7.8-10.44); Carbon Dioxide 26 mmol/L (23-31); Chloride 101 mmol/L (98-107); Estimated GFR-MDRD 5; Glucose 109 mg/dL (80-115); Potassium 3.9 mmol/L (3.5-5.1); Sodium 136 mmol/L (136-145)
--- NOTE | 2020-01-13 18:06 | RAD ---
PORTABLE CHEST ONE VIEW: 01/13/20 at 5:20 p.m. HISTORY: Sensation of lump in the chest. COMPARISON: 12/05/19. FINDINGS/IMPRESSION: Central venous catheters have been removed in the interim. Left sided pleural effusion is again seen . There has been interval reduction in the size of the right pleural effusion. No pneumothoraces are seen. The heart size is normal. POS: OFF
[2020-01-13] MEDS: Mirtazapine 15 MG TAB PO SCH (20:28)
[2020-01-13] MEDS: Pantoprazole 40 MG GRANULES PACKET PO SCH (20:28)
--- NOTE | 2020-01-13 20:37 | CON ---
DATE OF CONSULTATION: 01/13/2020 CHIEF COMPLAINT: No appetite, nausea, weight loss. HISTORY OF PRESENT ILLNESS: Ms. Jacobs is a 64-year-old woman, who was started on dialysis in November of last month. She developed kidney failure and chronic nausea back around end of September of 2019. She has had persistent nausea and intermittent vomiting since then. She has had 40 pounds weight loss over the last 3 months. She is taking Zofran and Phenergan with some marginal help. She just has no appetite, nothing tastes good to her. She drinks half of glass of water and that is all she feels like taking in through the day. She has had some increased belching and thickened oral secretions, but no hematemesis. She has had no diarrhea. Her last bowel movement was three days ago, which she reports was normal in consistency and color. She has been treating thrush with nystatin. She started hemodialysis earlier in November and then started peritoneal dialysis on December 04. She has been evaluated by Dr. Gibbs and Dr. Mohamud for chronic nausea. She has undergone upper endoscopy by Dr. Manning on December 02, which was normal except for a small hiatal hernia. She had a gastric emptying scan on January 04, which was normal. She had a HIDA scan with ejection fraction on January 02, which was normal. She had CT scan of the abdomen and pelvis on January 01 and also back in September. The recent CT showed ascites associated with her peritoneal dialysis and peritoneal dialysis catheter. She had some anasarca noted as well. No acute abnormality to explain her weight loss and nausea otherwise was identified. She had a CT scan of her brain, which was negative for a mass lesion as a cause for nausea. Last visit, Dr. Mohamud started her on mirtazapine of which she has only been on for about a week and has not seen improvement with this as of yet. 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 PAST SURGICAL HISTORY: Peritoneal dialysis catheter placement, atrial venous fistula placement, ankle surgery, hip replacement, cataract surgery, cervical spine surgery. FAMILY HISTORY: Negative for GI malignancy. SOCIAL HISTORY: No alcohol, tobacco, or drugs. ALLERGIES: NO KNOWN DRUG ALLERGIES. MEDICATIONS: Prior to admission: 1. Hydralazine. 2. Clonidine as needed. 3. Sevelamer. 4. Promethazine as needed. 5. Mirtazapine 7.5 mg at bedtime. 6. Metoprolol. 7. Docusate. 8. Calcitriol. REVIEW OF SYSTEMS: Negative x10 systems reviewed, except as stated in the history of present illness. PHYSICAL EXAMINATION: VITAL SIGNS: Temperature is 98.1, pulse 73, blood pressure 142/73. GENERAL: She is in no acute distress. Alert and oriented x3. HEENT: Eyes have no scleral icterus. Oropharynx is clear without lesions. No cervical or supraclavicular lymphadenopathy. LUNGS: Clear to auscultation bilaterally. HEART: Regular rate and rhythm without murmur. ABDOMEN: Soft, nontender, and nondistended. Bowel sounds are present. EXTREMITIES: No lower extremity edema. IMPRESSION: 1. Chronic nausea and loss of appetite and anorexia and 40 pounds weight loss. This appears to be secondary and related to her renal failure and starting peritoneal dialysis. No structural lesion has been identified by endoscopy, CT, HIDA scan, or CT scan of the brain. Her gastric emptying scan was normal. She just started mirtazapine a week ago and would be reasonable to try to fill the higher dose. 2. Depression. She seems very depressed related to these symptoms with flat affect and this may be compounding her symptoms. 3. 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 If she fails to improve with symptomatic medical treatment, then consideration for a period of hemodialysis and delay in peritoneal dialysis for a couple months might be considered. RECOMMENDATIONS: 1. Agree with an increased dose of Remeron to 15 mg at bedtime. 2. We will give a trial of dronabinol. 3. Again, I have encouraged her to push the art of nutritional supplements such as Nepro. 4. If she feels improved with mirtazapine, then consideration for more direct treatment of depression can be considered. 5. If all else fails, then consider holding peritoneal dialysis and instead using hemodialysis for a period of time. Job ID: [id number]
[2020-01-13] MEDS: Ondansetron ODT 4 MG TAB PO SCH ×2 (20:42→20:53)
[2020-01-13] MEDS ORDERED: Ondansetron ORAL SOLN. 4 MG/5 ML UDCUP PO SCH (22:00)
[2020-01-14 05:06] LABS: #Basophils 0.1 thou/uL (0.0-0.2); #Eosinphils 0.2 thou/uL (0.0-0.7); #Lymphocytes 2.1 thou/uL (1.20-3.40); #Monocytes 0.4 thou/uL (0.11-0.59); #Neutrophils 2.1 thou/uL (1.40-6.50); %Basophils 1.6 % (0.0-1.0); %Eosinophils 3.5 % (0.0-10.0); %Lymphocytes 42.8 % (21.0-51.0); %Monocytes 8.4 % (0.0-10.0); %Neutrophils 43.7 % (42.0-75.0); Hemoglobin 8.3 g/dL (12.0-16.0); Mean Corpuscular HGB CONC 32.6 g/dL (32.0-36.0); Mean Corpuscular Hemoglobin 31.4 pg (27.0-31.0); Mean Corpuscular Volume 96.4 fL (78.0-98.0); Mean Platelet Volume 7.2 fL (7.4-10.4); Platelet Count 281 thou/uL (130-400); RBC Distribution Width 13.3 % (11.5-14.5); Red Blood Cell (RBC) Count 2.65 mill/uL (4.20-5.40); White Blood Cell (WBC) Count 4.8 thou/uL (4.8-10.8)
[2020-01-14 05:29] LABS: Anion Gap 11 mmol/L (10-20); BUN (Urea Nitrogen) 23 mg/dL (9.8-20.1); Calc. Creatinine Clearance 6 mL/min (70-130); Calcium 7.5 mg/dL (7.8-10.44); Carbon Dioxide 27 mmol/L (23-31); Chloride 102 mmol/L (98-107); Estimated GFR-MDRD 6; Glucose 146 mg/dL (80-115); Phosphorus 3.4 mg/dL (2.3-4.7); Potassium 3.6 mmol/L (3.5-5.1); Sodium 136 mmol/L (136-145)
[2020-01-14] MEDS: Ondansetron ODT 4 MG TAB PO SCH ×3 (06:20→20:33)
--- NOTE | 2020-01-14 09:03 | PRG ---
DATE OF SERVICE: 01/14/2020 SUBJECTIVE: Ms. Jacobs is a 64-year-old white female with ESRD from biopsy-proven FSGS, was admitted due to persistent nausea and vomiting. She has had significant weight loss in the last several days. She has been seen by GI. Recommendation, start her on Marinol. In addition, Remeron has been increased. Her nauseous feeling is actually much improved this morning. However, she has not eaten. She will try to attempt to start her on a regular meal today. No other complaints. No chest pain or shortness of breath. OBJECTIVE: VITAL SIGNS: Blood pressure 158/73, heart rate 84, respiratory rate 16, temperature 98, and pulse ox 93%. GENERAL: Awake, alert, supine, and comfortable, not in distress. SKIN: Adequate turgor. HEENT: Slightly pale conjunctivae. Anicteric sclerae. NECK: No neck mass. No carotid bruits. No JVD. CHEST: No deformities. LUNGS: Clear breath sounds. HEART: Normal sinus rhythm. No murmur. No gallops. No rubs. ABDOMEN: Globular, soft, and nontender. No masses. EXTREMITIES: No edema. No deformities. She does have a PD catheter. MEDICATIONS: Medications of January 14, 2020, was reviewed. LABORATORY DATA: Laboratories of January 14, 2020, white count 4.8 and hemoglobin 8.3. Sodium 136, potassium 3.6, chloride 102, carbon dioxide 27, BUN 23, creatinine 7.17, calcium 7.5, and phosphorus 3.4. ASSESSMENT AND PLAN: 1. Nausea/vomiting - previous workup have all been negative. Continue symptomatic supportive care. Marinol has been started. In addition, we have increased Remeron. Gastroenterology is following. 2. End-stage renal disease, stable. We will continue current continuous cycling peritoneal dialysis regimen using 1.5% PD solution to minimize ultrafiltration with this patient. 3. Hypertension. Continue current BP medications. 4. Anemia. Epogen was started at 7500 units subcu every week. We will recheck CBC in a.m. Job ID: [id number]
[2020-01-14] MEDS: hydrALAZINE 25 MG TAB PO SCH ×2 (09:35→20:32)
[2020-01-14] MEDS: Fluconazole 100 MG TAB PO SCH (09:36)
[2020-01-14] MEDS: Calcitriol 0.25 MCG CAP PO SCH (09:36)
[2020-01-14] MEDS: Docusate 100 MG CAP PO SCH (09:36)
[2020-01-14] MEDS: Sevelamer Carbonate 800 MG TAB PO SCH (09:36)
[2020-01-14] MEDS: Folic Acid 1 MG TAB PO SCH (09:36)
[2020-01-14] MEDS: Metoprolol Tartrate 25 MG TAB PO SCH ×2 (09:36→20:32)
[2020-01-14] MEDS: Pantoprazole 40 MG GRANULES PACKET PO SCH ×2 (09:37→20:32)
[2020-01-14] MEDS: Dronabinol 2.5 MG CAP PO SCH ×2 (10:25→16:51)
[2020-01-14] MEDS ORDERED: IRON SUCROSE COMPLEX 100 MG/5 ML SLOW IVP SCH (12:45)
[2020-01-14] MEDS ORDERED: Sodium Ferric Gluconate 62.5 MG/5 ML AMP SLOW IVP SCH (13:30)
--- NOTE | 2020-01-14 17:39 | PDOC.HOSPP ---
- Subjective Encounter Date: 01/14/20 Encounter Time: 08:30 Subjective: The patient tolerated full liquid, however she did not like the food because she doesn't care for sweets. Requested regular diet which she tolerated well. She is also tolerating oral medication well. per nurse, BP was 190 this afternoon. Patient given prn clonidine. She denies headaches had questions about nausea and what to do if it reoccurs. SPent at least 45 minutes addressing concerns. ALso spoke with Dr. Chavarria about husbands concern about replacing the cap in catheter before he goes home. ALso instructed for dialysis nurse to teach about the cycles/draws etc that need to be used - Objective Vital Signs & Weight: Vital Signs (12 hours) Temp Pulse Resp BP BP Pulse Ox 01/14/20 16:55 196/95 H 01/14/20 11:30 98.3 F 87 16 113/68 96 01/14/20 09:35 84 185/84 H 01/14/20 08:00 98.2 F 87 18 185/84 H 98 Weight Admit Weight 113 lb 4.8 oz Weight 115 lb 2.177 oz I&O: 01/13/20 01/14/20 01/15/20 06:59 06:59 06:59 Intake Total 1672 Output Total 179 Balance 1493 Result Diagrams: 01/14/20 04:29 01/14/20 04:29 Hospitalist ROS - Medication Medications: Active Medications Generic Name Dose Route Start Last Admin Trade Name Freq PRN Reason Stop Dose Admin Calcitriol 0.25 mcg 01/13/20 09:00 01/14/20 09:36 Rocaltrol PO 0.25 mcg DAILY SORIN Administration Clonidine 0.2 mg 01/12/20 18:44 01/14/20 16:55 Catapres PO 0.2 mg BID PRN Administration Hypertension Docusate Sodium 100 mg 01/13/20 09:00 01/14/20 09:36 Colace PO 100 mg DAILY SORIN Administration Dronabinol 2.5 mg 01/13/20 16:30 01/14/20 16:51 Marinol PO 2.5 mg BID-AC SORIN Administration Epoetin Naresh-epbx 7,500 unit 01/13/20 12:00 01/13/20 14:05 Retacrit SC 7,500 unit Q7D SORIN Administration Fluconazole 100 mg 01/14/20 09:00 01/14/20 09:36 Diflucan PO 100 mg DAILY SORIN Administration Folic Acid 1 mg 01/14/20 09:00 01/14/20 09:36 Folvite PO 1 mg DAILY SORIN Administration Hydralazine HCl 50 mg 01/12/20 21:00 01/14/20 09:35 Apresoline PO 50 mg BID SORIN Administration Promethazine HCl 25 mg/ Sodium 51 mls @ 204 mls/hr 01/12/20 21:47 01/12/20 22 :31 Chloride IVPB 51 mls Q6H PRN Administration Nausea/Vomiting Metoprolol Tartrate 25 mg 01/12/20 21:00 01/14/20 09:36 Lopressor PO 25 mg BID SORIN Administration Mirtazapine 15 mg 01/13/20 21:00 01/13/20 20:28 Remeron PO 15 mg HS SORIN Administration Ondansetron HCl 4 mg 01/13/20 22:00 01/14/20 14:14 Zofran Odt PO Not Given Q8HR SORIN Pantoprazole Sodium 40 mg 01/13/20 21:00 01/14/20 09:37 Protonix PO 40 mg BID SORIN Administration Sevelamer Carbonate 800 mg 01/13/20 08:00 01/14/20 09:36 Renvela PO 800 mg QAM-WM SORIN Administration Sodium Chloride 10 ml 01/13/20 09:00 01/14/20 09:35 Flush - Normal Saline IVF 10 ml Q12HR SORIN Administration - Exam General Appearance: NAD, awake alert Eye: PERRL, anicteric sclera ENT: normocephalic atraumatic, no oropharyngeal lesions Neck: supple, symmetric, no JVD Heart: RRR, no murmur, no gallops, no rubs Respiratory: CTAB, no wheezes, no rales, no ronchi Gastrointestinal: soft, non-tender, non-distended, normal bowel sounds Gastrointestinal - other findings: PD catheter in place Extremities: no cyanosis, no clubbing, no edema Skin: normal turgor, no lesions, no rashes Neurological: cranial nerve grossly intact, normal sensation to touch, no focal deficits, no new deficit Musculoskeletal: normal tone, normal strength, no muscle wasting Hosp A/P - Plan Chest X ray: personally reviewed, left lpeural effusion This is a 64 year old female with past medical history of ESRD on peritoneal dialysis, hypertension who presented with intractable nausea and vomiting #Intractable nausea/vomiting #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 Increased mirtazapine dose at night -nutrition consult as well #Hypertensive urgency - continue oral hydralazine, increase to 75 mg bid - clonidine prn #Glossitis #Folate Deficiency Anemia #Anemia of chronic disease - likely from folate deficiency - vitamin B12 levels normal -vitamin B1 and B6 levels pending #Hypokalemia - resolved #Hyponatremia - resolved #Vitamin D deficiency - continue calcitriol
[2020-01-14] MEDS ORDERED: Sodium Chloride 0.9% 500 ML IV SCH (18:45)
[2020-01-14] MEDS: Mirtazapine 15 MG TAB PO SCH (20:32)
--- NOTE | 2020-01-14 20:42 | PRG ---
DATE OF SERVICE: 01/14/2020 SUBJECTIVE: Ms. Jacobs ate a little bit better today. She did not feel nauseated today. OBJECTIVE: ABDOMEN: Soft, nontender, and nondistended. IMPRESSION: 1. Chronic nausea and anorexia and weight loss. 2. Depression. 3. End-stage renal disease. RECOMMENDATIONS: 1. Remeron has been increased. 2. Dronabinol has been added. 3. Push nutritional supplements. 4. If she ultimately fails to improve with the above, direct treatment for depression may be considered. 5. If she continues to fail to significantly improve, then consider hemodialysis rather than peritoneal dialysis. 6. I will sign off. Please call if GI can be of assistance. Job ID: [id number]
[2020-01-14] MEDS ORDERED: hydrALAZINE 25 MG TAB PO SCH (21:00)
[2020-01-15 04:36] LABS: #Basophils 0.1 thou/uL (0.0-0.2); #Eosinphils 0.2 thou/uL (0.0-0.7); #Lymphocytes 1.8 thou/uL (1.20-3.40); #Monocytes 0.4 thou/uL (0.11-0.59); #Neutrophils 1.8 thou/uL (1.40-6.50); %Basophils 1.4 % (0.0-1.0); %Eosinophils 4.8 % (0.0-10.0); %Monocytes 9.7 % (0.0-10.0); %Neutrophils 43.1 % (42.0-75.0); Hemoglobin 8.1 g/dL (12.0-16.0); Mean Corpuscular HGB CONC 33.3 g/dL (32.0-36.0); Mean Platelet Volume 7.4 fL (7.4-10.4); Platelet Count 219 thou/uL (130-400); Red Blood Cell (RBC) Count 2.54 mill/uL (4.20-5.40); White Blood Cell (WBC) Count 4.3 thou/uL (4.8-10.8)
[2020-01-15 05:01] LABS: Anion Gap 9 mmol/L (10-20); BUN (Urea Nitrogen) 22 mg/dL (9.8-20.1); Calc. Creatinine Clearance 7 mL/min (70-130); Calcium 7.4 mg/dL (7.8-10.44); Carbon Dioxide 28 mmol/L (23-31); Chloride 100 mmol/L (98-107); Estimated GFR-MDRD 6; Glucose 149 mg/dL (80-115); Potassium 3.3 mmol/L (3.5-5.1); Sodium 134 mmol/L (136-145)
[2020-01-15] MEDS: Ondansetron ODT 4 MG TAB PO SCH ×2 (05:20→15:08)
[2020-01-15] MEDS: Fluconazole 100 MG TAB PO SCH (09:13)
[2020-01-15] MEDS: Dronabinol 2.5 MG CAP PO SCH ×2 (09:14→15:46)
[2020-01-15] MEDS: hydrALAZINE 25 MG TAB PO SCH (09:14)
[2020-01-15] MEDS: Calcitriol 0.25 MCG CAP PO SCH (09:15)
[2020-01-15] MEDS: Sevelamer Carbonate 800 MG TAB PO SCH (09:15)
[2020-01-15] MEDS ORDERED: Vancomycin HCl 1 GM in Premix Bag 1 BAG IVPB SCH (09:15)
[2020-01-15] MEDS: Metoprolol Tartrate 25 MG TAB PO SCH (09:15)
[2020-01-15] MEDS: Folic Acid 1 MG TAB PO SCH (09:15)
[2020-01-15] MEDS: Pantoprazole 40 MG GRANULES PACKET PO SCH (09:15)
[2020-01-15] MEDS: Docusate 100 MG CAP PO SCH (09:15)
[2020-01-15] MEDS ORDERED: Potassium Chloride 20 MEQ TAB PO SCH (09:15)
--- NOTE | 2020-01-15 09:22 | PRG ---
DATE OF SERVICE: 01/15/2020 SERVICE: Renal Medicine. SUBJECTIVE: Ms. Jacobs is a 64-year-old white female, who was admitted for persistent nausea and vomiting and weight loss. We are following her up for her maintenance peritoneal dialysis. She was still started on Marinol and Remeron has been increased. She has decreased nausea and vomiting. Her appetite is somewhat slightly improved. She was able to tolerate her breakfast, which she ate 50%. However, this morning, we noted that PD fluid was cloudy. For that reason, we will initiate peritonitis protocol. The patient denies any associated fever or abdominal pain with this. OBJECTIVE: VITAL SIGNS: Blood pressure 146/72, heart rate 72, respiratory rate 16, temperature 97.7, and pulse ox 92%. GENERAL: The patient is awake, alert, comfortable, not in distress. SKIN: Adequate turgor. HEENT: Slightly pale conjunctivae. Anicteric sclerae. NECK: No neck mass. No carotid bruits. No JVD. CHEST: No deformities. LUNGS: Clear breath sounds. HEART: Normal sinus rhythm. No murmur. No gallops. No rubs. ABDOMEN: Globular, soft, and nontender. No masses. Positive for PD catheter. EXTREMITIES: No edema. No deformities. MEDICATIONS: Medications of January 15, 2020, were reviewed. LABORATORY DATA: Laboratories of January 15, 2020; white count 4.2, hemoglobin 8.1. Sodium 134, potassium 3.3, chloride 100, carbon dioxide 28, BUN 22, creatinine 6.97, glucose 149, and calcium 7.4. PTH 34.3. ASSESSMENT AND PLAN: 1. Cloudy peritoneal dialysis fluid - rule out peritonitis. Peritoneal dialysis fluid has been seen for Gram stain, cell count, and C and S. We will empirically treat with intraperitoneal vancomycin and ceftazidime. 2. Anemia, continuing weekly Epogen. 3. Nausea and vomiting, slightly improved. Continuing Marinol as well as her Remeron. 4. Mild hypokalemia. KCl 40 mEq one tablet one dose now. Agree with current management. Job ID: [id number]
[2020-01-15 09:23] LABS: RBC Count-Automated (BF) 9 /cumm; WBC/Nucleated-Auto (BF) 18 uL
[2020-01-15] MEDS ORDERED: Cefepime 2 GM in Sodium Chloride 0.9% 100 ML IVPB SCH (09:30)
[2020-01-15 09:37] LABS: BF Color Colorless; Body Fluid Source Peritoneal Fluid; Clarity Clear (Clear); Tube # EDTA
[2020-01-15] MEDS ORDERED: VANCOMYCIN HCL FS SCH (09:45)
[2020-01-15] MEDS ORDERED: [UNRECOGNIZED DRUG - OTHER] FS SCH (09:45)
[2020-01-15] MEDS ORDERED: CEFTAZIDIME FORTAZ FS SCH (09:45)
[2020-01-15 09:51] LABS: BF Segmented Neutrophils 17 %; Cell Count Non Hematic 24 %; Eosinophils 2 %; Lymphocytes 57 %
[2020-01-15 12:51] VITALS: BMI 18.1
--- NOTE | 2020-01-15 16:10 | PDOC.HOSPP ---
- Subjective Encounter Date: 01/15/20 Encounter Time: 11:30 Subjective: The patient is doing better. She tolerated an oral diet. She has minimal nausea and no vomiting. Last night, BP was > 190. She received clonidine and BP dropped to 80. Her BP is better now. However PD fluid was noted to be cloudy , therefore she was given IV vanc and cefepime in her dialysis catheter this am. Cultures were taken and pending Fluid culture preliminarily negative - Objective Vital Signs & Weight: Vital Signs (12 hours) Temp Pulse Resp BP BP Pulse Ox 01/15/20 11:30 97.4 F L 79 20 140/74 96 01/15/20 09:14 81 170/81 H 01/15/20 08:00 97.4 F L 81 18 170/81 H 93 L Weight Admit Weight 113 lb 4.8 oz Weight 115 lb 8.979 oz I&O: 01/14/20 01/15/20 01/16/20 06:59 06:59 06:59 Intake Total 1672 980 Output Total 179 0 Balance 1493 980 Result Diagrams: 01/15/20 04:18 01/15/20 04:18 Hospitalist ROS - Review of Systems Constitutional: denies: fever, chills - Medication Medications: Active Medications Generic Name Dose Route Start Last Admin Trade Name Freq PRN Reason Stop Dose Admin Calcitriol 0.25 mcg 01/13/20 09:00 01/15/20 09:15 Rocaltrol PO 0.25 mcg DAILY SORIN Administration Clonidine 0.2 mg 01/12/20 18:44 01/14/20 16:55 Catapres PO 0.2 mg BID PRN Administration Hypertension Docusate Sodium 100 mg 01/13/20 09:00 01/15/20 09:15 Colace PO 100 mg DAILY SORIN Administration Dronabinol 2.5 mg 01/13/20 16:30 01/15/20 15:46 Marinol PO 2.5 mg BID-AC SORIN Administration Epoetin Naresh-epbx 7,500 unit 01/13/20 12:00 01/13/20 14:05 Retacrit SC 7,500 unit Q7D SORIN Administration Fluconazole 100 mg 01/14/20 09:00 01/15/20 09:13 Diflucan PO 100 mg DAILY SORIN Administration Folic Acid 1 mg 01/14/20 09:00 01/15/20 09:15 Folvite PO 1 mg DAILY SORIN Administration Hydralazine HCl 50 mg 01/14/20 21:00 01/15/20 09:14 Apresoline PO 50 mg BID SORIN Administration Promethazine HCl 25 mg/ Sodium 51 mls @ 204 mls/hr 01/12/20 21:47 01/12/20 22 :31 Chloride IVPB 51 mls Q6H PRN Administration Nausea/Vomiting Metoprolol Tartrate 25 mg 01/12/20 21:00 01/15/20 09:15 Lopressor PO 25 mg BID SORIN Administration Mirtazapine 15 mg 01/13/20 21:00 01/14/20 20:32 Remeron PO 15 mg HS SORIN Administration Ondansetron HCl 4 mg 01/13/20 22:00 01/15/20 15:08 Zofran Odt PO Not Given Q8HR SORIN Pantoprazole Sodium 40 mg 01/13/20 21:00 01/15/20 09:15 Protonix PO 40 mg BID SORIN Administration Sevelamer Carbonate 800 mg 01/13/20 08:00 01/15/20 09:15 Renvela PO 800 mg QAM-WM SORIN Administration Sodium Chloride 10 ml 01/13/20 09:00 01/15/20 10:51 Flush - Normal Saline IVF 10 ml Q12HR SORIN Administration - Exam General Appearance: NAD, awake alert Eye: PERRL, anicteric sclera ENT: normocephalic atraumatic, no oropharyngeal lesions Neck: supple, no JVD Heart: RRR, no murmur, no gallops, no rubs Respiratory: CTAB, no wheezes, no rales, no ronchi Gastrointestinal: soft, non-tender, non-distended, normal bowel sounds Extremities: no cyanosis, no clubbing, no edema Skin: normal turgor, no lesions, no rashes Neurological: cranial nerve grossly intact, normal sensation to touch, no focal deficits, no new deficit Musculoskeletal: normal tone, normal strength, no muscle wasting Hosp A/P - Plan Chest X ray: personally reviewed, left lpeural effusion This is a 64 year old female with past medical history of ESRD on peritoneal dialysis, hypertension who presented with intractable nausea and vomiting #Intractable nausea/vomiting #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 Added dronabinol per GI, mirtazapine increased by nephrology #Cloudy Peritoneal fluid - fluid looks clear - no evidence of infection, will stop antibiotics #Hypertension/Hypotension - BP 140-170 - continue hydralazine 50 mg bid #Glossitis #Folate Deficiency Anemia #Anemia of chronic disease - likely from folate deficiency - vitamin B12 levels normal -vitamin B1 and B6 levels pending #Hypokalemia - resolved #Hyponatremia - resolved #Vitamin D deficiency - continue calcitriol Dispo: d/c home
[2020-01-15 16:53] VITALS: BP 161/80; TEMP 96.2
--- NOTE | 2020-01-15 21:20 | DIS ---
DATE OF ADMISSION: 01/12/2020 DATE OF DISCHARGE: 01/15/2020 DISCHARGE DIAGNOSES: Intractable nausea and vomiting, possibly secondary to end-stage renal disease; severe protein calorie malnutrition, gastroesophageal reflux disease, hypertension, thrush, glossitis, folate deficiency anemia, hypokalemia, hyponatremia. CONSULTATIONS: 1. Dr. Yemi Chavarria with Nephrology. 2. Dr. Ben Rosas with Gastroenterology. PROCEDURES: None. BRIEF HISTORY OF PRESENT ILLNESS: This is a 64-year-old female with a past medical history of ESRD, on peritoneal dialysis, who presented to the emergency room with intractable nausea and vomiting. The patient reported a 40- to 50-pound weight loss. The patient was recently admitted in November and had an unremarkable HIDA scan, gastric emptying study, EGD, and CT of abdomen and pelvis. After discharge, the patient states that she was unable to tolerate any oral medications and her vomiting resumed. She also described a burning sensation in her esophagus and feeling like something was stuck in her throat. The patient was found have a low potassium of 2.7. She was admitted for further workup. HOSPITAL COURSE: Intractable nausea and vomiting, possibly secondary to GERD versus ESRD/severe protein calorie malnutrition: The patient was started on scheduled Zofran t.i.d. She was also given Compazine and Phenergan p.r.n. IV. Due to the patient's sensation of a foreign body in her throat, she was started on Protonix for possible GERD. The patient did have improvement with the Protonix and the following day was able to tolerate a full liquid diet. GI was consulted and started her on dronabinol while she was in the hospital. Dr. Chavarria was consulted from Nephrology and increased her mirtazapine. Dr. Chavarria also changed her PD solution bath to a 1.5% bath. On 01/15, it was thought that her peritoneal dialysis fluid was cloudy and fluid samples were sent, which were negative for any infection, however, she did receive a dose of vancomycin and cefepime in her catheter empirically. The patient was tolerating all oral medications and a regular diet on the day of discharge. She will be discharged on scheduled Zofran, mirtazapine 15 mg p.o. at bedtime. I was unable to discharge her with dronabinol since the pharmacy did not have the strength that she was receiving in the hospital. Wilfrid in [facility] appeared to have dronabinol; however, the minimum quantity that could be prescribed was 60 mg. The patient was advised to follow up with her GI, Dr. Mohamud. Hypertension: The patient was continued on her metoprolol and hydralazine. She did have 1 episode of hypotension in the hospital when she received clonidine. Her clonidine was discontinued while she was in the hospital and she was advised to stop taking it since her blood pressure dropped from 190 to 80 systolic with this. Her blood pressure on the day of discharge ranged from 140 to 170. She should follow up with her service cashier, Dr. Chavarria and her PCP in a week. Folate deficiency anemia/glossitis/thrush: The patient was noted to have some white patches on her tongue, which appeared to be a combination of mucositis/glossitis and thrush. She did receive some IV fluconazole in the hospital for few days and was eventually transitioned to oral fluconazole for additional 5 days. Vitamin B12 levels were checked which were normal. Vitamin B1 and B6 levels were pending. Her folic acid levels were low and she was discharged on folic acid supplements. Cloudy peritoneal fluid: The patient was noted to have cloudy fluid on 01/15, on the day of discharge. However, when the sample was sent, fluid analysis was clear. Her fluid white cells were 18. She was discharged without any antibiotics. DISCHARGE PHYSICAL EXAMINATION: VITAL SIGNS: Temperature 96.2, heart rate 77, respiratory rate 16, O2 saturation 96% on room air, blood pressure 161/80. GENERAL: The patient is underweight. She is in no acute distress. CVS: Regular rate and rhythm with no murmurs, rubs, or gallops. HEENT: The patient does have some mild thrush on her tongue and an enlarged tongue. LUNGS: Clear to auscultation bilaterally. ABDOMEN: Positive bowel sounds, soft, nontender, nondistended. The patient has a PD catheter in place. EXTREMITIES: No edema. PERTINENT LABORATORY DATA: CBC on 01/15, shows hemoglobin of 8.1, hematocrit 24.3. CMP on 01/15, shows sodium 134, potassium of 3.3, creatinine of 6.97. LFTs on 01/12, alkaline phosphatase is elevated at 118. Vitamin B12 was 432. Folate was low at 3.20. PTH was 34.3. Fluid analysis from peritoneum on 01/15, showed colorless fluid, 18 white blood cells, 19 rbc's, 17% segmented neutrophils with pathology showing mesothelial cells, lymphocytes and neutrophils. PERTINENT IMAGING: Chest x-ray on 01/13, shows a small left-sided pleural effusion and reduction in the size of the right pleural effusion. DISCHARGE CONDITION: Stable. ACTIVITY: As tolerated. DIET: Renal diet. DISCHARGE INSTRUCTIONS: The patient was advised to follow up with her PCP and her service cashier. She was given instructions by the dialysis nurse as to how to administer her cycles and her dwells. She will follow up with Dr. Mohamud from . She should take fluconazole for 5 more days, start taking Protonix and start taking folic acid. She will discontinue her clonidine. DISCHARGE MEDICATIONS: New prescriptions: 1. Folic acid 1 mg daily. 2. Fluconazole 100 mg p.o. daily for 5 tablets. 3. Mirtazapine 15 mg tablet p.o. at bedtime. 4. Protonix 40 mg p.o. b.i.d. All other home medications were resumed. Job ID: [id number]
== END 2020-01-15 19:15 | disposition home or self-care (01) | DRG 682 ==
LOC: ERS 12:43 → 2NO 15:06 → ERS 16:27
PROVIDERS: ADMIT Emergency Medicine; ATTEND Internal Medicine
PROC: 5A1D70Z Performance of Urinary Filtration, Intermittent, Less than 6 Hours Per Day (ICD-10-PCS; principal; 2020-01-13)
DX: I12.0 Hypertensive chronic kidney disease with stage 5 chronic kidney disease or end stage renal disease (principal); E43 Unspecified severe protein-calorie malnutrition; N18.6 End stage renal disease; E87.1 Hypo-osmolality and hyponatremia; Z68.1 Body mass index [BMI] 19.9 or less, adult; K14.0 Glossitis; K21.9 Gastro-esophageal reflux disease without esophagitis; B37.9 Candidiasis, unspecified; D52.9 Folate deficiency anemia, unspecified; E87.6 Hypokalemia; E55.9 Vitamin D deficiency, unspecified; F32.9 Major depressive disorder, single episode, unspecified; I16.0 Hypertensive urgency; Z99.2 Dependence on renal dialysis; Z79.899 Other long term (current) drug therapy
CPT/HCPCS: 36415; 36416; 71045; 80048; 80053; 82607; 82746; 83605; 83970; 84100; 84207; 84425; 84484; 85025; 85060; 87070; 87205; 89051; 90945; 93005; 96374; 96375; C9113; G0257; J0713; J1450; J2405; J2550; J2916; J3370; J3480; J7050; J7120; Q0162; Q0167; Q5105

== ENCOUNTER 2020-07-15 07:33 | Outpatient (CLI) | payer MEDICARE, OTHER ==
[2020-07-15 16:30] LABS: Hemoglobin 9.8 g/dL (12.0-16.0); Mean Corpuscular HGB CONC 31.1 g/dL (32.0-36.0); Mean Corpuscular Hemoglobin 32.5 pg (27.0-31.0); Mean Platelet Volume 7.5 fL (7.4-10.4); Platelet Count 321 thou/uL (130-400); RBC Distribution Width 15.9 % (11.5-14.5); Red Blood Cell (RBC) Count 3.02 mill/uL (4.20-5.40); White Blood Cell (WBC) Count 7.3 thou/uL (4.8-10.8)
[2020-07-15 17:32] LABS: Anion Gap 21 mmol/L (10-20); BUN (Urea Nitrogen) 45 mg/dL (9.8-20.1); Calc. Creatinine Clearance 0 mL/min (70-130); Calcium 7.8 mg/dL (7.8-10.44); Carbon Dioxide 18 mmol/L (23-31); Chloride 101 mmol/L (98-107); Estimated GFR-MDRD 5; Glucose 130 mg/dL (80-115); Potassium 4.3 mmol/L (3.5-5.1); Sodium 136 mmol/L (136-145)
[2020-07-16 14:02] LABS: SARS-CoV-2 MS2 Positive; SARS-CoV-2 N Gene Negative; SARS-CoV-2 S Gene Negative; SARS-CoV-2 by NAA Not Detected (NotDetected); SARS-CoV-2 orf1ab Negative
== END 2020-07-15 07:34 | disposition home or self-care (01) ==
LOC: LABBT 07:33
PROVIDERS: ATTEND Thoracic Surgery (Cardiothoracic Vascular Surgery)
DX: Z01.812 Encounter for preprocedural laboratory examination (principal); Z20.828 Contact with and (suspected) exposure to other viral communicable diseases; I25.10 Atherosclerotic heart disease of native coronary artery without angina pectoris
CPT/HCPCS: 80048; 85027; 86850; 86900; 86901; 86920; U0003; 87635

== ENCOUNTER 2022-03-21 11:20 | Outpatient (CLI) | payer MEDICARE | END 2022-03-21 11:21 | disposition home or self-care (01) | LOC: BICMAMMO 11:20 | PROVIDERS: ATTEND Family Medicine | DX: Z12.31 Encounter for screening mammogram for malignant neoplasm of breast (principal) | CPT/HCPCS: 77063; 77067 ==

== ENCOUNTER 2023-11-15 08:30 | Outpatient (CLI) | payer MEDICARE | END 2023-11-15 08:31 | disposition home or self-care (01) | LOC: SCSMRI 08:30 | PROVIDERS: ATTEND Family Medicine | DX: M50.11 Cervical disc disorder with radiculopathy, high cervical region (principal); R26.9 Unspecified abnormalities of gait and mobility; M48.02 Spinal stenosis, cervical region; M51.36 Other intervertebral disc degeneration, lumbar region; M51.35 Other intervertebral disc degeneration, thoracolumbar region; M40.292 Other kyphosis, cervical region | CPT/HCPCS: 72141; 72146; 72148 ==

== ENCOUNTER 2024-07-14 10:54 | Outpatient (CLI) | payer MEDICARE | END 2024-07-14 10:55 | disposition home or self-care (01) | LOC: BICMAMMO 10:54 | PROVIDERS: ATTEND Family Medicine | DX: Z12.31 Encounter for screening mammogram for malignant neoplasm of breast (principal) | CPT/HCPCS: 77063; 77067 ==

== ENCOUNTER 2024-09-11 14:50 | Observation (INO) | payer MEDICARE ==
[~2024-09-11 14:50] MED LIST changes: -Iopamidol-370 76% 500 ML 1 ML ONE; +Iopamidol-370 76% 500 ML MDV (1 ML CHARGE) ONE
[2024-09-11 15:23] LABS: #Basophils 0.04 10x3/uL (0.0-0.2); #Eosinophils Less than 0.03 10x3/uL (0.0-0.7); %Basophils 0.3 % (0.0-1.0); %Lymphocytes 6.8 % (21.0-51.0); %Monocytes 4.9 % (0.0-10.0); %Neutrophils 87.4 % (42.0-75.0); Hematocrit 40.5 % (36.0-47.0); Hemoglobin 13.4 g/dL (12.0-16.0); Mean Corpuscular HGB CONC 33.1 g/dL (32.0-36.0); Mean Corpuscular Hemoglobin 30.2 pg (27.0-31.0); Mean Corpuscular Volume 91.4 fL (78.0-98.0); Mean Platelet Volume 9.9 fL (7.4-10.4); Platelet Count 394 10x3/uL (130-400); RBC Distribution Width 13.1 % (11.5-14.5); Red Blood Cell (RBC) Count 4.43 mill/uL (4.20-5.40)
[2024-09-11 15:42] LABS: Troponin I Less than 0.010 ng/mL (< 0.028)
[2024-09-11 15:44] LABS: ALT (SGPT) 14 U/L (8-55); AST (SGOT) 14 U/L (5-34); Alkaline Phosphatase 98 U/L (40-110); Anion Gap 18 mmol/L (10-20); BUN (Urea Nitrogen) 43 mg/dL (9.8-20.1); Bilirubin, Total 0.4 mg/dL (0.2-1.2); Calc. Creatinine Clearance 0 mL/min (70-130); Calcium 9.8 mg/dL (7.8-10.44); Carbon Dioxide 18 mmol/L (23-31); Chloride 103 mmol/L (98-107); Estimated GFR 37; Globulin 3.2 g/dL (2.4-3.5); Glucose 289 mg/dL (80-115); Potassium 4.2 mmol/L (3.5-5.1); Protein, Total 6.2 g/dL (5.8-8.1); Sodium 135 mmol/L (136-145)
[2024-09-11] MEDS ORDERED: Sodium Chloride 0.9% 100 ML ONE (15:44)
[2024-09-11] MEDS ORDERED: Cefepime 2 GM VIAL ONE (15:44)
[2024-09-11] MEDS ORDERED: Vancomycin 1 GM/200 ML (FROZEN) BAG ONE (16:46)
[2024-09-11 17:36] LABS: Bilirubin Negative (Negative); Blood, Urine 1+ (Negative); CAUTI Indications for Culture Alt mental st,lethar; Clarity Turbid (Clear); Glucose, Urine (Dipstick) Normal (Negative); Ketone, Urine Negative (Negative); Leukocyte 500 Leu/uL (Negative); Nitrite 2+ (Negative); Protein, Urine (Dipstick) 50 mg/dL (Neg-Trace); RBC/HPF 21-50 HPF (0-3); Renal Epithelial 0-3 HPF (None Seen); Specific Gravity, Urine 1.026 (1.002-1.036); Squamous Epithelial 0-3 HPF (0-3); Urobilinogen Normal mg/dL (Less than 2); pH, Urine 5.5 (5.0-9.0)
[2024-09-11 17:50] LABS: Bacteria/HPF 4+ HPF (None Seen); WBC/HPF Greater than 50 HPF (0-3)
[2024-09-11 17:51] LABS: Urine Culture Reflex Yes Yes
[2024-09-11] MEDS ORDERED: Acetaminophen 325 MG TAB PO PRN (19:22)
[2024-09-11] MEDS ORDERED: Ondansetron PF 4 MG/2 ML Vial IVP PRN (19:22)
[2024-09-11] MEDS ORDERED: Ipratropium/Albuterol 3 ML NEB NEB PRN (21:00)
[2024-09-11 21:05] VITALS: BMI 21.4
[2024-09-11 21:17] LABS: Hemoglobin A1c 6.7 % (4.0-6.0)
[2024-09-11] MEDS: Sodium Chloride 0.9% 1,000 ML IV SCH (21:32)
[2024-09-11 23:35] LABS: Magnesium 2.1 mg/dL (1.6-2.6)
[2024-09-12] MEDS: Sodium Chloride 0.9% 1,000 ML IV SCH (00:41)
[2024-09-12 04:30] LABS: #Basophils 0.04 10x3/uL (0.0-0.2); %Basophils 0.3 % (0.0-1.0); %Eosinophils 0.2 % (0.0-10.0); %Lymphocytes 11.9 % (21.0-51.0); %Monocytes 8.1 % (0.0-10.0); %Neutrophils 78.6 % (42.0-75.0); Hematocrit 34.9 % (36.0-47.0); Hemoglobin 11.6 g/dL (12.0-16.0); Mean Corpuscular HGB CONC 33.2 g/dL (32.0-36.0); Mean Corpuscular Hemoglobin 30.1 pg (27.0-31.0); Mean Corpuscular Volume 90.4 fL (78.0-98.0); Mean Platelet Volume 9.9 fL (7.4-10.4); Platelet Count 303 10x3/uL (130-400); RBC Distribution Width 13.2 % (11.5-14.5); Red Blood Cell (RBC) Count 3.86 mill/uL (4.20-5.40)
[2024-09-12 05:03] LABS: Anion Gap 13 mmol/L (10-20); BUN (Urea Nitrogen) 31 mg/dL (9.8-20.1); Calc. Creatinine Clearance 42 mL/min (70-130); Calcium 8.8 mg/dL (7.8-10.44); Carbon Dioxide 19 mmol/L (23-31); Chloride 109 mmol/L (98-107); Estimated GFR 48; Glucose 140 mg/dL (80-115); Potassium 3.4 mmol/L (3.5-5.1); Sodium 138 mmol/L (136-145)
[2024-09-12] MEDS: cefTRIAXone\\ROCEPHIN 1 GM in Sodium Chloride 0.9% 100 ML IVPB SCH (05:09)
[2024-09-12] MEDS ORDERED: Evolocumab [Repatha Sureclick] 140 MG/ML Pen.Injctr SC SCH (08:15)
[2024-09-12] MEDS: Cholecalciferol 1,000 UNITS (25 MCG) TAB PO SCH (09:14)
[2024-09-12] MEDS: Tacrolimus 1 MG CAP PO SCH (09:14)
[2024-09-12] MEDS: predniSONE 5 MG TAB PO SCH (09:15)
[2024-09-12] MEDS: Famotidine 20 MG TAB PO SCH (09:15)
[2024-09-12] MEDS: Aspirin 81 mg Enteric Coated Tablet PO SCH (09:15)
[2024-09-12] MEDS: NIFEdipine XL 30 MG ER.TAB PO SCH (09:15)
[2024-09-12] MEDS: Mycophenolate DR 180 MG TAB PO SCH (09:18)
[2024-09-12 12:30] VITALS: BP 144/71; TEMP 97.6
[2024-09-12] MEDS ORDERED: Tacrolimus 0.5 MG CAP PO SCH ×2 (21:00)
[2024-09-12] MEDS ORDERED: Losartan 25 MG TAB PO SCH (21:00)
[2024-09-12] MEDS ORDERED: Tacrolimus 1 MG CAP PO SCH (21:00)
[2024-09-12] MEDS ORDERED: Calcium Carbonate 500 MG ChewTAB PO SCH (21:00)
[2024-09-13] MEDS ORDERED: predniSONE 5 MG TAB PO SCH (08:00)
== END 2024-09-12 16:11 | disposition home or self-care (01) ==
LOC: ERS 14:50 → OBS 17:20
PROVIDERS: ADMIT Internal Medicine; ATTEND Internal Medicine
DX: A41.9 Sepsis, unspecified organism (principal); I12.0 Hypertensive chronic kidney disease with stage 5 chronic kidney disease or end stage renal disease; N18.6 End stage renal disease; N17.9 Acute kidney failure, unspecified; I25.10 Atherosclerotic heart disease of native coronary artery without angina pectoris; J20.9 Acute bronchitis, unspecified; R73.9 Hyperglycemia, unspecified; Z94.0 Kidney transplant status; Z98.49 Cataract extraction status, unspecified eye; Z98.890 Other specified postprocedural states; Z79.82 Long term (current) use of aspirin; Z79.899 Other long term (current) drug therapy
CPT/HCPCS: 71045; 71275; 80048; 80053; 81001; 83036; 83605; 83735; 83880; 84484; 85025 ×2; 85379; 87040; 87077; 87086; 87186; 93005; 96361; 96365; 96367; 96375; 99285; G0378 ×3; J0692; J0696; J3370; Q9967; 36415; J7507; J7512; J7518

== ENCOUNTER 2025-07-15 08:12 | Outpatient (CLI) | payer MEDICARE | END 2025-07-15 08:13 | disposition home or self-care (01) | LOC: BICMAMMO 08:12 | PROVIDERS: ATTEND Family Medicine | DX: Z12.31 Encounter for screening mammogram for malignant neoplasm of breast (principal); M81.0 Age-related osteoporosis without current pathological fracture | CPT/HCPCS: 77063; 77067; 77080 ==